=== PATIENT | female | born 1960 | race Caucasian/White ===

== ENCOUNTER 2020-04-11 15:31 | Outpatient (CLI) | payer MEDICARE, SELFPAY ==
--- NOTE | ~2020-04-11 | XR_ITS ---
EXAMINATION: XR hip LT 2V w AP pelvis DATE: 04/11/2020 16:08 INDICATION: Left hip and groin pain. TECHNIQUE: Anteroposterior view of the pelvis and anteroposterior, frog leg and cross-table lateral v iews of the left hip were obtained. COMPARISON: 05/16/2019 FINDINGS: Alignment is normal. No fracture. Slight progression in advanced left hip osteoarthritis with essenti ally [id number] apposition and early remodeling of the left femoral head and acetabulum with promin ent subarticular sclerosis and cystic change. Unchanged mild to moderate right hip osteoarthritis. Mi ld lumbar spondylosis. IMPRESSION: 1. Slight progression in advanced left hip osteoarthritis. 2. Unchanged mild to moderate right hip osteoarthritis. Reviewed, dictated and finalized at location A.
== END 2020-04-11 15:32 | disposition home or self-care (01) ==
PROVIDERS: PCP Family Medicine; Visit Provider Family Medicine
DX: M16.0 Bilateral primary osteoarthritis of hip (principal)
CPT/HCPCS: 73502

== ENCOUNTER 2021-02-01 10:07 | Outpatient (CLI) | payer MEDICARE, SELFPAY ==
--- NOTE | ~2021-02-01 | CT_ITS ---
EXAMINATION: CT hip LT wo con DATE: 02/01/2021 10:24 INDICATION: Left hip pain and inability to fully straighten the left leg TECHNIQUE: High resolution computed tomography (CT) of the left hip was performed without intravenous contrast. Additional sagittal and coronal reconstructions were performed. Automated exposure control and iterative reconstruction technique were employed. The dose-length product was 198.09 mGy-cm. COMPARISON: Left hip radiographs dated 01/24/2021, 04/11/2020 and 05/16/2019 FINDINGS: Advanced osteoarthritis at the left hip with remodeling and mild loss of bone stock along cephalad as pect of the femoral head and at the superior acetabulum. This results in mild cephalad migration of t he left femur. There is prominent subarticular sclerosis and cystic change about the left acetabulum with thin hypertrophic marginal osteophytes along the acetabulum and thicker marginal osteophytes judith ng the inferomedial aspect of the femoral head. No fracture. No significant left hip joint effusion. Moderate osteoarthritis at the left sacroiliac joint. IMPRESSION: 1. Advanced osteoarthritis at the left hip with no joint effusion or acute osseous abnormality. Reviewed, dictated and finalized at location B. IMPRESSION: 1. Advanced osteoarthritis at the left hip with no joint effusion or acute osse ous abnormality.
== END 2021-02-01 10:08 ==
PROVIDERS: PCP Family Medicine; Visit Provider Orthopaedic Surgery
DX: M16.12 Unilateral primary osteoarthritis, left hip (principal)
CPT/HCPCS: 73700

== ENCOUNTER 2021-04-29 12:24 | Emergency (ER) | payer MEDICARE, SELFPAY ==
[2021-04-29 12:35] VITALS: BP 184/88; PULSE 92; RESP 18; TEMP 35.9; O2SAT 97
--- NOTE | 2021-04-29 13:17 | ED.SKABFB ---
HPI - Skin/Abscess/Foreign Bdy General Chief complaint: Skin/Abscess/Foreign Body Stated complaint: rash/body aches Source: patient and RN notes reviewed Limitations: no limitations History of Present Illness HPI narrative: The Covid unvaccinated obese patient-- a a non-smoker/nondrinker on several med inc for AODM-- presents with abdominal aches and rash. Patient states she has a couple day history of epigastric pain associated with chills, nausea, rash and definite loose stools. She reports she has been on Bactrim for a diabetic foot ulcer [pending hip surgery] , and that small toe ulceration is no better. No fever measured, actual vomiting, frequency/dysuria/urgency; she reports a total hysterectomy in the past. Her epigastric discomfort makes her double over and brings tears to her eyes. Her rash is pink, slightly raised itchy and diffuse on trunk and extremities.. Advised to go to higher-level care facility to higher level testing , because for early diagnosis of serious problems [cholecystitis, atypical appendicitis, etc], clear specific symptoms do not develop until later. Related Data Home Medications Medication Instructions Recorded Confirmed cholecalciferol (vitamin D3) 125 unit PO 10/07/19 04/22/21 mcg (5,000 unit) disintegrating tablet dorzolamide 2 % eye drops 1 drop EACH EYE TID 10/07/19 04/22/21 multivit with min-folic 1 tablet PO DAILY 05/30/20 04/22/21 acid-lutein 400 mcg-250 mcg chewable tablet Allergies Allergy/AdvReac Type Severity Reaction Status Date / Time aspirin Allergy Unknown Unknown Verified 04/29/21 17:42 nickel Allergy Unknown Unknown Verified 04/29/21 17:42 Penicillins Allergy Unknown unknonw Verified 04/29/21 17:42 ranitidine Allergy Unknown unknown Verified 04/29/21 17:42 Review of Systems Review of Systems: Narrative: General/Constitutional: No weight loss,fever Eyes: N0: Redness,discharge Ears/Nose/Throat: No: Epistaxis,ear discharge Respiratory: Denies: Hemoptysis Gastrointestinal: No Vomiting, Bleeding-rectal Skin: No Lumps, REPORTS eruption Neurologic: No Focal Weakness,Sz Hematologic: Denies: Petechiae/Purpura Psychiatric: No: Suicida ideationl All Other Systems: Reviewed and Negative [facility] Past Medical History Medical History Depressive disorder, not elsewhere classified (~2008) Diabetic foot ulcer Dietary counseling and surveillance (~2008) Encounter for medication management (~2008) Fibromyalgia syndrome (~2008) Generalized osteoarthritis of multiple sites History of anesthesia problem History of sleep apnea Left hip pain Left knee pain Neuropathic pain of both feet (~2014) Osteoarthritis involving multiple joints on both sides of body (~2017) Osteopenia after menopause (~10/2018) 11/08/2018: DEXA scan showed normal hip and lumbar BMD compared to 07/11/2013 from [facility]: Dr. 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 (~2012) Type 2 diabetes mellitus with diabetic polyneuropathy (~2012) Vitamin D deficiency, unspecified Weight gain Surgical History Surgical History History of genital warts 1983 - s/p Excision History of hysterectomy 2004 S/P hysterectomy with oophorectomy (~1988) Family History Family History Father Family history of kidney disease Mother Family history of kidney disease Other Asthma Depression Diabetes mellitus Family history of Alzheimer's disease Family history of alcoholism Family history of arthritis Family history of atrial fibrillation Family history of chronic obstructive pulmonary disease Family history of congestive h
== END 2021-04-29 13:55 | disposition home or self-care (01) ==
PROVIDERS: Emergency Provider Emergency Medicine
DX: R10.13 Epigastric pain (principal); R21 Rash and other nonspecific skin eruption; E11.621 Type 2 diabetes mellitus with foot ulcer; Z87.891 Personal history of nicotine dependence; G47.30 Sleep apnea, unspecified; M79.7 Fibromyalgia; M19.90 Unspecified osteoarthritis, unspecified site; M81.0 Age-related osteoporosis without current pathological fracture; M06.9 Rheumatoid arthritis, unspecified; E11.42 Type 2 diabetes mellitus with diabetic polyneuropathy
CPT/HCPCS: 99213; A9270; G0463

== ENCOUNTER 2021-04-29 14:30 | Emergency (ER) | payer MEDICARE, SELFPAY ==
--- NOTE | ~2021-04-29 | CT_ITS ---
EXAMINATION: CT abdomen pelvis w con EXAM DATE: 04/29/2021 18:51 INDICATION: Abdominal pain. TECHNIQUE: Spiral CT of the abdomen and pelvis was performed following intravenous injection of 100 m L Omnipaque 350. Axial, coronal and sagittal images of the abdomen and pelvis were reviewed. The do se-length product (DLP) for this examination was 1140.46 mGy-cm. The exposure was tailored according to patient size (auto mA exposure control), and iterative reconstruction (ASIR) was used as addition al dose reduction technique. Comparison is made to prior examination from 08/15/2010. FINDINGS: There is hepatic steatosis without suspicious focal lesion identified. Spleen, adrenal glan ds, pancreas are unremarkable. The gallbladder is distended but otherwise unremarkable. There is no biliary duct dilation. 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 The uterus is not identified and wolfe s likely been surgically resected. The bladder is unremarkable. There is no retroperitoneal or pelv ic lymphadenopathy. There is mild to moderate scattered arteriosclerotic disease. The appendix is not positively visualized. There is no pericecal inflammatory change to suggest appe ndicitis. There is small sliding gastroesophageal hiatal hernia. There is expected amount of colon ic stool. No free intraperitoneal gas. The heart is normal in size. There are no pericardial or pleural effusions. Linear lingular and right middle lobe subsegmental atelectasis. There are no ost eoblastic or osteolytic lesions identified. There is moderate to severe left hip, moderate right hip primary osteoarthritis. IMPRESSION: 1. No acute intra-abdominal findings. 2. 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 3. Hepatic steatosis. 4. Small hiatal hernia. Reviewed, dictated and finalized at location A.
[2021-04-29 15:42] VITALS: BP 187/89; PULSE 72; RESP 18; TEMP 36.6; O2SAT 100
[2021-04-29 16:09] LABS: Basophils Percent Auto 0.3 % (0.2-1.2); Eosinophils Absolute Auto 0.6 K/mm3 (0-0.3); Eosinophils Percent Auto 9.4 % (0-4.4); Hematocrit 37.4 % (37.0-47.0); Hemoglobin 12.7 g/dL (12.0-15.0); Immature Granulocyte Absolute 0.02 K/mm3 (0.00-0.031); Immature Granulocyte Percent A 0.3 % (0-0.5); Immature Platelet Fraction Pct 7.2 % (0.9-11.2); Lymphocytes Absolute Auto 1.22 K/mm3 (0.9-3.2); Lymphocytes Percent Auto 19.2 % (18.3-44.2); Mean Corpuscular Hemoglobin 29.2 pg (26-34); Monocytes Absolute Auto 0.7 K/mm3 (0.1-0.6); Monocytes Percent Auto 10.8 % (2.6-8.5); Neutrophils Absolute Auto 3.8 K/mm3 (1.3-6.7); Platelet Count Result 141 k/mm3 (150-375); Red Blood Count 4.35 M/mm3 (4.2-5.4); Red Cell Distribution Width 12.6 % (11.5-14.5); White Blood Count 6.4 K/mm3 (4.5-10.0)
--- NOTE | 2021-04-29 16:20 | PC.NURSE ---
hysterectomy. did not perform urine preg test
[2021-04-29 16:31] LABS: Alanine Aminotransferase 42 U/L (4-35); Albumin Level 4.6 g/dL (3.5-5.1); Alkaline Phosphatase 123 U/L (38-126); Anion Gap 10 mmol/L (8-16); Aspartate Amino Transferase 40 U/L (14-36); Bilirubin,Total 0.7 mg/dL (0.2-1.3); Blood Urea Nitrogen 18 mg/dL (7-17); Calcium 10.3 mg/dL (8.4-10.2); Carbon Dioxide 23 mmol/L (22-30); Chloride 104 mmol/L (98-107); Estimated CRCL calculation 71 ml/min; Estimated Glomerular Filt Rate 57; Glucose 174 mg/dL (65-105); Lipase 181 U/L (23-300); Potassium 4.7 mmol/L (3.4-5.0); Sodium 137 mmol/L (137-145)
[2021-04-29 16:45] LABS: Add Urine Microscopic? YES; Appearance Urine Clear (Clear); Bilirubin Urine Negative (Negative); Blood Urine Negative (Negative); Color Urine Yellow (Yellow); Glucose Urine UA Negative (Negative); Ketones Urine Negative (Negative); Leukocyte Esterase Ur Trace LEU/UL (Negative); Mucus Urine Rare /lpf; Nitrate Urine Negative (Negative); Protein Urine Negative (Negative); RBC Urine 0-2 /hpf (0-2); Specific Grav Ur 1.014 (1.001-1.035); Squamous Epithelial Cell Urine Occasional /hpf (Few); Urobilinogen Urine Negative mg/dL (<2.0); WBC Urine 0-3 /hpf
--- NOTE | 2021-04-29 17:25 | PC.NURSE ---
Patient reports that she was seen at [facility] and given nausea medication before being sent to the ED. She reports that pain began yesterday and that she was doing a lot of walking and quite a bit of lifting dealing with groceries. In addition to the abdominal pain and nausea she reports generalized body aches beginning this AM. No other concerns are reported at this time.
[2021-04-29 17:27] VITALS: BP 200/89; PULSE 73; RESP 15; TEMP 36.8; O2SAT 100
--- NOTE | 2021-04-29 17:44 | PC.NURSE ---
While obtaining patient history she reports having a generalized itching rash that is present globally but worse on her back. She believes this may be poison lora related. She reports that her grandson had poison lora on thursday and is concerned that she may have contracted this rash from him. Patient also has a wound noted to her right 5th toe for which she is being treated. She does have a small diffuse red rash noted on exam. She does
[2021-04-29] MEDS: SODIUM CHLORIDE 0.9% IV 1,000 ML 999 ML IV CONT (19:58)
[2021-04-29 20:16] VITALS: BP 169/112; PULSE 79; RESP 18; O2SAT 100
[2021-04-29] MEDS: MORPHINE SULFATE (*CRX) 4 MG/ML INJ IV PUSH (20:47)
[2021-04-29] MEDS: ONDANSETRON INJ 4 MG/2 ML VIAL IV PUSH (20:48)
--- NOTE | 2021-04-29 20:54 | ED.ABDPAIN ---
HPI - Abdominal Pain General Chief Complaint: Abdominal Pain Stated Complaint: Abd Pain Time Seen by Provider: 04/29/21 18:04 Source: patient, EMS and RN notes reviewed Limitations: no limitations History of Present Illness HPI narrative: Patient is 60 years old white female presented to the ED with mid abdominal pain started yesterday, constant, worse with activity, nothing make it better. Patient denies any fever, chills, nausea, vomiting, diarrhea, constipation, urinary symptoms. History of hysterectomy. Patient does not smoke, drink occasionally uses marijuana almost daily. History of diabetes, disability because of fibromyalgia rheumatoid arthritis and osteoarthritis. Patient has been fully vaccinated for COVID-19 Related Data Home Medications Medication Instructions Recorded Confirmed cholecalciferol (vitamin D3) 125 unit PO 10/07/19 04/22/21 mcg (5,000 unit) disintegrating tablet dorzolamide 2 % eye drops 1 drop EACH EYE TID 10/07/19 04/22/21 multivit with min-folic 1 tablet PO DAILY 05/30/20 04/22/21 acid-lutein 400 mcg-250 mcg chewable tablet Allergies Allergy/AdvReac Type Severity Reaction Status Date / Time aspirin Allergy Unknown Unknown Verified 04/29/21 17:42 nickel Allergy Unknown Unknown Verified 04/29/21 17:42 Penicillins Allergy Unknown unknonw Verified 04/29/21 17:42 ranitidine Allergy Unknown unknown Verified 04/29/21 17:42 Review of Systems Review of Systems: Narrative: CONSTITUTIONAL: Denies fever, chills, or sweats. EYES: Denies visual changes, redness, or discharge. ENT: Denies rhinorrhea, congestion, sore throat, or otalgia. CARDIOVASCULAR: Denies chest pain, palpitations, or edema. RESPIRATORY: Denies cough or dyspnea. GASTROINTESTINAL: Mild abdominal pain GENITOURINARY: Denies dysuria or hematuria. SKIN: Denies rash or itching. MUSCULOSKELETAL: Denies back pain, joint pain, or myalgia. NEUROLOGIC: Denies headache, numbness, or weakness. PSYCHIATRIC: Denies anxiety or depression. [facility] Past Medical History Medical History Depressive disorder, not elsewhere classified (~2008) Diabetic foot ulcer Dietary counseling and surveillance (~2008) Encounter for medication management (~2008) Fibromyalgia syndrome (~2008) Generalized osteoarthritis of multiple sites History of anesthesia problem History of sleep apnea Left hip pain Left knee pain Neuropathic pain of both feet (~2014) Osteoarthritis involving multiple joints on both sides of body (~2017) Osteopenia after menopause (~10/2018) 11/08/2018: DEXA scan showed normal hip and lumbar BMD compared to 07/11/2013 from [facility]: Dr. 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 (~2012) Type 2 diabetes mellitus with diabetic polyneuropathy (~2012) Vitamin D deficiency, unspecified Weight gain Surgical History Surgical History History of genital warts 1983 - s/p Excision History of hysterectomy 2004 S/P hysterectomy with oophorectomy (~1988) Family History Family History Father Family history of kidney disease Mother Family history of kidney disease Other Asthma Depression Diabetes mellitus Family history of Alzheimer's disease Family history of alcoholism Family history of arthritis Family history of atrial fibrillation Family history of chronic obstructive pulmonary disease Family history of congestive heart failure Family history of elevated blood lipids Family history of glaucoma Family history of liver disease Family history of lung disease Family history of mental disorder Family history of osteoporosis Family history
[2021-04-29 21:34] VITALS: BP 196/90; PULSE 88; RESP 18; TEMP 36.7; O2SAT 100
== END 2021-04-29 21:35 | disposition home or self-care (01) ==
PROVIDERS: Emergency Medicine; Emergency Provider Emergency Medicine
DX: R10.33 Periumbilical pain (principal); Z87.891 Personal history of nicotine dependence
CPT/HCPCS: 36415; 74177; 80053; 81001; 83690; 85025; 85055; 96361; 96374; 96375; 99284; A9270; J2270; J2405; J7030; Q9967

== ENCOUNTER 2021-05-17 13:50 | Outpatient (CLI) | payer MEDICARE, SELFPAY ==
--- NOTE | ~2021-05-17 | US_ITS ---
EXAMINATION: US art doppler w jamal BEST EXAM DATE: 05/17/2021 14:48 INDICATION: Stricture of artery, stent. TECHNIQUE: Segmental pressures and plethysmographic and Doppler waveforms of the brachial and lower e xtremity arteries were obtained. There is no prior study for comparison. FINDINGS: Right and left brachial artery pressures of 161 mm Hg and 156 mm Hg, respectively, are concordant (no rmal difference <= 30 mmHg). The right and left thigh-brachial pressure indices are 1.15, 0.93, resp ectively (normal > 1.2). RIGHT LEG: The ankle-brachial index (RHONDA) is 0.81 (normal >= 0.9-1). The great toe-brachial index (TBI) is 0.75 (normal >= 0.65). The lower extremity ratios, segmental pressure gradients as follows; Proximal superficial femoral artery:- 1.15 (185 mmHg). Distal superficial femoral artery: ----- 1.09 (175 mmHg). Popliteal: 1.00 (161 mmHg). Dorsalis pedis: 0.74 (119 mmHg). Posterior tibial: 0.81 (130 mmHg). (Normal gradients <= 20-30 mmHg between adjacent levels on the same leg or the same levels on the two legs). Arterial waveforms are monophasic. LEFT LEG: The ankle-brachial index (RHONDA) is 0.83 (normal >= 0.9-1). The great toe-brachial index (TBI) is 0.55 (normal >= 0.65). The lower extremity ratios, segmental pressure gradients as follows; Proximal superficial femoral artery:- 0.93 (150 mmHg). Distal superficial femoral artery: ----- 1.11 (178 mmHg). Popliteal: 0.88 (141 mmHg). Dorsalis pedis: 0.83 (133 mmHg). Posterior tibial: 0.78 (125 mmHg). (Normal gradients <= 20-30 mmHg between adjacent levels on the same leg or the same levels on the two legs). Arterial waveforms are monophasic. IMPRESSION: 1. Right ankle-brachial index 0.81, mildly decreased. 2. Left ankle-brachial index 0.83, mildly decreased. 3. Segmental pressures as above. Reviewed, dictated and finalized at location A.
== END 2021-05-17 13:51 | disposition home or self-care (01) ==
LOC: ANHIMG 13:53
PROVIDERS: PCP Nurse Practitioner Family; Visit Provider Nurse Practitioner Family
DX: I77.1 Stricture of artery (principal)
CPT/HCPCS: 93923

== ENCOUNTER 2021-05-30 16:06 | Outpatient (CLI) | payer MEDICARE, SELFPAY ==
[2021-05-30 17:37] LABS: Hemoglobin A1C 8.1 % (<5.7)
[2021-06-02 22:31] LABS: NIL 0.02 IU/mL; Quantiferon TB Plus, 1T NEGATIVE (NEGATIVE); TB1-NIL <0.00 IU/mL
== END 2021-05-30 16:07 | disposition home or self-care (01) ==
PROVIDERS: PCP Nurse Practitioner Family; Visit Provider Internal Medicine
DX: M05.79 Rheumatoid arthritis with rheumatoid factor of multiple sites without organ or systems involvement (principal); E11.42 Type 2 diabetes mellitus with diabetic polyneuropathy
CPT/HCPCS: 36415; 83036; 86480

== ENCOUNTER 2021-07-17 16:31 | Outpatient (CLI) | payer MEDICARE, SELFPAY ==
[2021-07-17 17:09] LABS: Alanine Aminotransferase 25 U/L (4-35); Albumin Level 4.5 g/dL (3.5-5.1); Alkaline Phosphatase 80 U/L (38-126); Anion Gap 10 mmol/L (8-16); Aspartate Amino Transferase 35 U/L (14-36); Bilirubin,Total 0.6 mg/dL (0.2-1.3); Blood Urea Nitrogen 16 mg/dL (7-17); Calcium 9.8 mg/dL (8.4-10.2); Carbon Dioxide 29 mmol/L (22-30); Chloride 107 mmol/L (98-107); Estimated Glomerular Filt Rate 51; Glucose 90 mg/dL (65-110); Potassium 4.5 mmol/L (3.4-5.0); Sodium 146 mmol/L (137-145)
== END 2021-07-17 16:32 | disposition home or self-care (01) ==
LOC: ANHLAB 16:33
PROVIDERS: PCP Family Medicine; Visit Provider Family Medicine
DX: N17.9 Acute kidney failure, unspecified (principal); E11.42 Type 2 diabetes mellitus with diabetic polyneuropathy; I10 Essential (primary) hypertension
CPT/HCPCS: 36415; 80053

== ENCOUNTER 2021-11-06 12:04 | Outpatient (CLI) | payer MEDICARE, SELFPAY ==
[2021-11-06 12:02] LABS: Hematocrit 39.5 % (37.0-47.0); Mean Corpuscular HGB Conc 32.9 g/dl (32-36); Mean Corpuscular Hemoglobin 30.2 pg (26-34); Mean Corpuscular Volume 91.6 fl (80-100); Mean Platelet Volume 11.1 fl (7.4-10.4); Platelet Count Result 145 k/mm3 (150-375); Red Blood Count 4.31 M/mm3 (4.2-5.4); Red Cell Distribution Width 12.4 % (11.5-14.5); White Blood Count 5.4 K/mm3 (4.5-10.0)
[2021-11-06 12:17] LABS: Alanine Aminotransferase 21 U/L (4-35); Albumin Level 4.6 g/dL (3.5-5.1); Alkaline Phosphatase 85 U/L (38-126); Anion Gap 9 mmol/L (8-16); Aspartate Amino Transferase 30 U/L (14-36); Bilirubin,Total 0.4 mg/dL (0.2-1.3); Blood Urea Nitrogen 24 mg/dL (7-17); CRP < 0.5 mg/dL (<1.0); Calcium 9.6 mg/dL (8.4-10.2); Carbon Dioxide 30 mmol/L (22-30); Chloride 101 mmol/L (98-107); Estimated Glomerular Filt Rate 46; Glucose 105 mg/dL (65-110); Potassium 4.5 mmol/L (3.4-5.0); Sodium 140 mmol/L (137-145)
[2021-11-06 12:26] LABS: Add Urine Microscopic? YES; Appearance Urine Cloudy (Clear); Bacteria Urine Trace /hpf; Bilirubin Urine Negative (Negative); Blood Urine 2+ (Negative); Color Urine Amber (Yellow); Glucose Urine UA Negative (Negative); Ketones Urine Negative (Negative); Leukocyte Esterase Ur 3+ LEU/UL (Negative); Mucus Urine Rare /lpf; Nitrate Urine Negative (Negative); Protein Urine 2+ mg/dL (Negative); RBC Urine >75 /hpf (0-2); Specific Grav Ur 1.024 (1.001-1.035); Squamous Epithelial Cell Urine Many /hpf (Few); Urobilinogen Urine Negative mg/dL (<2.0); WBC Urine >75 /hpf
[2021-11-06 12:53] LABS: Erythrocyte Sedimentation Rate 21 mm/hr (0-20)
== END 2021-11-06 12:05 | disposition home or self-care (01) ==
PROVIDERS: PCP Family Medicine; Visit Provider Internal Medicine
DX: M19.90 Unspecified osteoarthritis, unspecified site (principal); M05.79 Rheumatoid arthritis with rheumatoid factor of multiple sites without organ or systems involvement; Z51.81 Encounter for therapeutic drug level monitoring; Z79.899 Other long term (current) drug therapy
CPT/HCPCS: 36415; 80053; 81001; 85027; 85652; 86140; 87086; 87088

== ENCOUNTER 2022-01-22 14:41 | Outpatient (CLI) | payer MEDICARE, SELFPAY ==
--- NOTE | ~2022-01-22 | CT_ITS ---
EXAMINATION:CT lung screening DATE: 01/22/2022 15:08 INDICATION: Tobacco use. Smoker who quit 11 years ago with 80 pack year history. TECHNIQUE: Computed tomography (CT) of the chest was performed without intravenous contrast. Automate d exposure control and iterative reconstruction technique were employed. The dose-length product (DLP ) was 151.80 mGy-cm. COMPARISON: CT abdomen and pelvis 04/29/2021 FINDINGS: There is mild emphysema. There is mild atelectasis and scarring in right middle lobe and li ngula. A calcified right lung nodule and calcified right hilar lymph nodes are consistent with old gr anulomatous disease. There is a stable 3 mm nodule in left lower lobe. No pleural effusion. The heart size is normal. There are coronary artery calcifications. No pericardial effusion. There is mild tho racic spondylosis and severe lumbar spondylosis. There is mild chronic anterior wedging of T11 and T1 2 vertebral bodies. IMPRESSION: 1. Lung-RADS category 2: Benign appearance or behavior. Continue annual screening with noncontrast lo w-dose chest CT in 12 months. Reviewed, dictated and finalized at location A. IMPRESSION: 1. Lung-RADS category 2: Benign appearance or behavior. Continue annual screeni ng with noncontrast low-dose chest CT in 12 months.
== END 2022-01-22 14:42 | disposition home or self-care (01) ==
LOC: ANHIMG 14:51
PROVIDERS: PCP Family Medicine; Visit Provider Family Medicine
DX: Z12.2 Encounter for screening for malignant neoplasm of respiratory organs (principal); Z87.891 Personal history of nicotine dependence
CPT/HCPCS: 71271

== ENCOUNTER 2022-03-01 09:39 | Emergency (ER) | payer MEDICARE, SELFPAY ==
--- NOTE | ~2022-03-01 | CT_ITS ---
EXAMINATION: CT brain wo con INDICATION: Head injury COMPARISON: None TECHNIQUE: Standard unenhanced head CT. The dose-length product (DLP) was 605.33 mGy-cm. The mA was a djusted according to patient size. Iterative reconstruction technique was employed. FINDINGS: There is a posterior scalp laceration. There is no intracranial hemorrhage, acute infarctio n, or abnormal mass lesion. The ventricles are normal. There is no abnormal mass effect or midline sh ift. The paz-white matter differentiation is normal. The basal cisterns are patent. The orbits are n ormal. There are small fluid levels in the maxillary sinuses IMPRESSION: 1. No acute intracranial abnormality. Reviewed, dictated and finalized at location A.
--- NOTE | ~2022-03-01 | CT_ITS ---
EXAMINATION: CT facial & cervical spine wo DATE: 03/01/2022 12:06 INDICATION: Facial and neck pain, head injury TECHNIQUE: Computed tomography (CT) of the maxillofacial region and cervical spine was performed with out intravenous contrast. The dose-length product (DLP) was 471.50 mGy-cm. Automated exposure control and iterative reconstruction technique were employed. COMPARISON: None FINDINGS: MAXILLOFACIAL CT: No facial fracture is identified. There are small fluid levels in the maxillary sinuses. The paranasa l sinuses are otherwise clear. The patient is edentulous. CERVICAL SPINE CT: There is no fracture, dislocation, or subluxation. There is severe loss of intervertebral disc space height at C4-5, C5-6, and C6-7. The odontoid is intact. Small degenerative osteophytes project from t he anterior endplates of multiple vertebral bodies. The vertebral body heights are normal. There is m oderate multilevel facet and uncovertebral joint osteoarthritis. There are calcifications of the post erior longitudinal ligament at C4. IMPRESSION: 1. Small fluid levels in the maxillary sinuses without facial fracture. 2. Severe cervical spondylosis without acute findings. Reviewed, dictated and finalized at location A.
[2022-03-01 09:49] VITALS: BP 188/104; PULSE 91; RESP 21; TEMP 36.7; O2SAT 99
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
[2022-03-01] MEDS: ACETAMINOPHEN 500 MG TABLET 1000 MG PO (12:34)
[2022-03-01] MEDS: KETOROLAC (*BKC) 60 MG/2 ML VIAL IM (12:34)
[2022-03-01 12:37] VITALS: BP 144/108; PULSE 84; RESP 18; O2SAT 97
[2022-03-01 14:06] VITALS: BP 145/74; PULSE 66; RESP 18; O2SAT 99
== END 2022-03-01 14:07 | disposition home or self-care (01) ==
PROVIDERS: Emergency Provider Emergency Medicine; PCP Family Medicine
DX: S01.01XA Laceration without foreign body of scalp, initial encounter (principal); S09.93XA Unspecified injury of face, initial encounter; I77.1 Stricture of artery; M79.7 Fibromyalgia; M19.90 Unspecified osteoarthritis, unspecified site; G47.30 Sleep apnea, unspecified; M85.80 Other specified disorders of bone density and structure, unspecified site; E11.51 Type 2 diabetes mellitus with diabetic peripheral angiopathy without gangrene; E11.42 Type 2 diabetes mellitus with diabetic polyneuropathy; E55.9 Vitamin D deficiency, unspecified; M47.812 Spondylosis without myelopathy or radiculopathy, cervical region; Z87.891 Personal history of nicotine dependence; Y08.02XA Assault by strike by baseball bat, initial encounter; X99.8XXA Assault by other sharp object, initial encounter; Z79.899 Other long term (current) drug therapy
CPT/HCPCS: 12001; 70450; 70486; 72125; 96372; 99284; A9270; J1885

== ENCOUNTER 2022-11-12 19:35 | Inpatient (IN) | payer MEDICARE, SELFPAY ==
[2022-11-12] VITALS (7 sets, daily range): BP systolic 145–181; BP diastolic 64–79; PULSE 88–145; RESP 24–30; TEMP 36.3; O2SAT 88–94
--- NOTE | ~2022-11-12 | XR_ITS ---
Portable chest x-ray Comparison: 11/16/2022 Clinical History: Shortness of breath Findings: Right-sided PICC line remains in place. Extensive right upper lobe consolidation is again present. There is more patchy involvement in the right lower lobe, and possible minimal involvement o f the left lower lobe. Cardiomediastinal silhouette is stable. Bones and soft tissues are unremarkab le. Impression: Stable extensive right upper lobe consolidation, compatible with pneumonia. Minimal patchy airspace disease left lung base and right lower lobe, similar to prior exam. Stable right-sided PICC line. Reviewed, dictated and finalized at location M. MFITTER Impression: Stable extensive right upper lobe consolidation, compatible with pneumonia. Minimal patchy airspace disease left lung base and right lower lobe, similar to prior exam. Stable right-sided PICC line.
--- NOTE | ~2022-11-12 | XR_ITS ---
EXAMINATION: XR chest PICC line DATE: 11/16/2022 10:33 INDICATION: Central line placement. TECHNIQUE: A single frontal view of the chest was obtained. COMPARISON: Chest single view 11/15/2022 FINDINGS: There are airspace opacities in all lung zones bilaterally, worst in right mid and upper devon ng zones. No pleural effusion or pneumothorax. The heart size is normal. A right upper extremity carlos pherally inserted central venous catheter (PICC) is seen with tip in the superior vena cava. IMPRESSION: 1. PICC tip in superior vena cava. 2. Bilateral pneumonia, right worse than left with slight worsening. Reviewed, dictated and finalized at location A. DEVELOPER
--- NOTE | ~2022-11-12 | XR_ITS ---
EXAMINATION: XR chest 1V portable DATE: 11/15/2022 07:22 INDICATION: Pneumonia. TECHNIQUE: A single frontal view of the chest was obtained. COMPARISON: Chest single view 11/12/2022, chest CT 11/13/2022 FINDINGS: There are airspace opacities in all lung zones bilaterally, worst in right mid and upper devon ng zones. No pleural effusion or pneumothorax. The heart size is normal. IMPRESSION: 1. Stable bilateral pneumonia, right worse than left. Reviewed, dictated and finalized at location A. DER HAND
--- NOTE | ~2022-11-12 | US_ITS ---
EXAMINATION: US art doppler w press LE BI DATE: 11/21/2022 15:42 INDICATION: Peripheral vascular disease with leads TECHNIQUE: Segmental pressures and plethysmographic and Doppler waveforms of the brachial and lower e xtremity arteries were obtained. COMPARISON: None. FINDINGS: Right and left brachial artery pressures of 159 mm Hg and 176 mm Hg, respectively, are concordant (no rmal difference <= 30 mmHg). The right ankle-brachial index (RHONDA) is 0.90 (normal >= 0.9-1). The right great toe-brachial index (T BI) is 0.22 (normal >= 0.6-0.8). Arterial waveforms are triphasic at the right common femoral and lik reynaldo also the superficial femoral and popliteal arteries and biphasic in the right posterior tibial an d dorsalis pedis arteries with brisk systolic upstrokes throughout. The left RHONDA is 0.88. The left TBI is 0.09. Arterial waveforms are triphasic at the left common femor al and popliteal arteries, biphasic in the left posterior tibial and dorsalis pedis arteries, each wi th brisk systolic upstrokes. There is insufficient signal to the waveforms relative to the noise for assessment of the waveforms in the left superficial femoral artery. IMPRESSION: 1. Arterial occlusive disease to the bilateral lower limbs with mildly decreased bilateral ABIs and m oderate decreased right and severely decreased left TBIs. Reviewed, dictated and finalized at location B. F COUNSELOR IMPRESSION: 1. Arterial occlusive disease to the bilateral lower limbs with mildly decrease d bilateral ABIs and moderate decreased right and severely decreased left TBIs.
--- NOTE | ~2022-11-12 | CT_ITS ---
EXAMINATION: CT brain wo con DATE: 11/15/2022 13:30 INDICATION: Altered mental status. TECHNIQUE: Computed tomography (CT) of the head was performed without intravenous contrast. The mA wa s adjusted according to patient size. Iterative reconstruction technique was employed. The dose-lengt h product was 1210.67 mGy-cm. COMPARISON: Head CT 03/01/2022 FINDINGS: There is no intracranial hemorrhage, acute infarction, or abnormal intracranial mass lesion . The ventricles are normal in size. There is mild mucosal thickening in the paranasal sinuses. The o rbits are normal. The mastoid air cells are normal. IMPRESSION: 1. Normal brain. Reviewed, dictated and finalized at location A. GAGE CONSULTANT IMPRESSION: 1. Normal brain.
--- NOTE | ~2022-11-12 | MR_ITS ---
EXAMINATION: MR brain/brain stem wo con DATE: 11/21/2022 18:09 INDICATION: Asymmetric pupils TECHNIQUE: Magnetic resonance imaging (MRI) of the brain and brainstem was performed without intraven ous contrast. Sequences included sagittal and axial T1-weighted SE, axial diffusion-weighted FS SE, a xial T2*-weighted GRE, axial T2-weighted FLAIR Propeller, and axial T2-weighted Propeller. Apparent d iffusion coefficient (ADC) maps were created. COMPARISON: MRI dated 11/17/[address] dated 11/15/2022. FINDINGS: Brain parenchymal volume is normal for age. No evidence for acute infarction, hemorrhage or mass. Structures of the posterior fossa including 7/8th cranial nerve complexes are normal. No ventr iculomegaly or midline shift. Paranasal sinuses are unremarkable. Orbits are symmetric without discon jugate gaze. Midline sagittal images are unremarkable. IMPRESSION: 1. No acute intracranial abnormality. Reviewed, dictated and finalized at location A. EL ENDSHAKER ADJUSTER
--- NOTE | ~2022-11-12 | CT_ITS ---
EXAMINATION: CT abdomen pelvis w con DATE: 11/12/2022 20:53 INDICATION: Abdominal pain. Nausea. TECHNIQUE: Computed tomography (CT) of the abdomen and pelvis was performed with 100 mL Omnipaque 350 intravenous contrast. Automated exposure control and iterative reconstruction technique were employe d. The dose-length product was 812.60 mGy-cm. COMPARISON: CT abdomen and pelvis 04/29/2021 FINDINGS: The visualized portions of the lung bases demonstrate confluent airspace and groundglass op acities with air bronchograms in right upper lobe and right lower lobe. There are widespread tree-in- bud opacities and patchy airspace and groundglass opacities in the upper lobes, lower lobes, and righ t middle lobe. Calcified right lung nodules and calcified right hilar and mediastinal lymph nodes are consistent with old granulomatous disease. No pleural effusion. The heart size is normal. There are coronary artery calcifications. No pericardial effusion. There is wall thickening of the distal esoph kalin, likely esophagitis. There is a 9 mm cyst in the liver. The gallbladder, spleen, pancreas, adren al glands, and kidneys are normal. 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 There are no dilated loops of bowel. The appendix is normal. There are no pathologically enlarge d lymph nodes. There is no free intraperitoneal fluid. There is severe osteoarthritis of the hips. Th ere is severe lumbar spondylosis and moderate thoracic spondylosis. There is mild chronic anterior we dging of multiple vertebral bodies. IMPRESSION: 1. Extensive pneumonia, right worse than left. 2. Wall thickening of the distal esophagus, likely esophagitis. Reviewed, dictated and finalized at location A. RESS TECHNICIAN
--- NOTE | ~2022-11-12 | CT_ITS ---
Clinical Indication: Respiratory failure CT Scan of the Chest with Contrast: Technique: Contiguous sections were acquired throughout the chest after intravenous administration of 100 cc of Omnipaque 350. Dose reduction technique was used on this scan by utilizing automated expos ure control and iterative reconstruction technique. The dose-length product (DLP) was 703.22 mGy-cm. COMPARISON: 01/22/2022 Findings: There is probable mild lymphadenopathy along the right paratracheal stripe, and subcarinal region, in the pretracheal region.. There is no filling defect in the pulmonary arterial tree to suggest pulmon gina embolus. There is no evidence of aortic dissection or aneurysm. There is no evidence of pleural or pericardial effusion. There is extensive, dense consolidation throughout the right lung, sparing the inferior right lower l obe and portion of the right middle lobe. There scattered patchy focal areas of consolidation in the left lung. Probable lingular atelectasis. Images through the upper abdomen reveal no abnormalities. Impression: Extensive, dense consolidation in the right lung, with scattered focal areas of consolidation left devon ng. Findings are compatible with extensive pneumonia. Underlying neoplastic lesion is difficult to co mpletely exclude, though no distinct mass effect clearly identified on the opacified pulmonary arteri al tree. Mild lymphadenopathy, presumably reactive. Reviewed, dictated and finalized at location . CLEANER APPRENTICE Impression: Extensive, dense consolidation in the right lung, with scattered focal areas of consolidation left lung. Findings are compatible with extensive pneumonia. Und erlying neoplastic lesion is difficult to completely exclude, though no distinc t mass effect clearly identified on the opacified pulmonary arterial tree. Mild lymphadenopathy, presumably reactive.
--- NOTE | ~2022-11-12 | US_ITS ---
EXAMINATION: US right upper quadrant DATE: 11/16/2022 09:34 INDICATION: Abnormal liver function tests. TECHNIQUE: Multiple grayscale and Doppler ultrasound images of the abdomen were obtained. COMPARISON: CT abdomen and pelvis 11/15/2022 FINDINGS: The visualized portions of the head and body of the pancreas are normal. The liver is carina l without focal lesion. There is normal flow in main portal vein. The gallbladder is normal in size a nd contains a gallstone. No gallbladder wall thickening or sonographic Teran sign. The common duct i s mildly dilated and measures 7 mm. IMPRESSION: 1. Cholelithiasis. No evidence of acute cholecystitis. 2. Mildly dilated common duct. Reviewed, dictated and finalized at location A. NG TENDER
--- NOTE | ~2022-11-12 | CT_ITS ---
EXAMINATION: CT abdomen pelvis wo con DATE: 11/15/2022 13:30 INDICATION: Abdominal tenderness. TECHNIQUE: Computed tomography (CT) of the abdomen and pelvis was performed without intravenous contr ast. Automated exposure control and iterative reconstruction technique were employed. The dose-length product was 1419.87 mGy-cm. COMPARISON: CT abdomen and pelvis 11/12/2022 FINDINGS: The visualized portions of the lung bases demonstrate patchy airspace and groundglass opaci ties in all lobes, right worse than left, consistent with pneumonia. A calcified right lung nodule is consistent with old granulomatous disease. There are small pleural effusions. The heart size is norm al. There are coronary artery calcifications. No pericardial effusion. The liver and spleen are carina l. The gallbladder is distended. The pancreas and adrenal glands are normal. There is cortical thinni ng of the kidneys. There are persistent bilateral contrast nephrograms, consistent with decreased kid carlo function. There is wall thickening of the descending and sigmoid colon. The appendix is normal. T here is endoluminal contrast in the proximal colon. There are no pathologically enlarged lymph nodes. There is a small volume of ascites. The bladder is decompressed by a Mejia catheter. There is severe osteoarthritis of the hips. There is severe lumbar spondylosis and moderate thoracic spondylosis. Th ere is mild chronic anterior wedging of multiple vertebral bodies. IMPRESSION: 1. Gallbladder distention, which may be secondary to fasting or acalculous cholecystitis. 2. Extensive pneumonia, right worse than left. 3. Small pleural effusions. 4. Small volume of ascites. 5. Wall thickening of the descending and sigmoid colon, consistent with interstitial edema versus col itis. Reviewed, dictated and finalized at location A. ING SIGNAL OFFICER IMPRESSION: 1. Gallbladder distention, which may be secondary to fasting or acalculous chol ecystitis. 2. Extensive pneumonia, right worse than left. 3. Small pleural effusions. 4. Small volume of ascites. 5. Wall thickening of the descending and sigmoid colon, consistent with interst itial edema versus colitis.
--- NOTE | ~2022-11-12 | US_ITS ---
EXAMINATION: US venous doppler [facility] DATE: 11/19/2022 16:48 INDICATION: Upper limb edema. TECHNIQUE: Grayscale ultrasound images without and with compression and Doppler ultrasound images of the bilateral upper extremity veins were obtained. COMPARISON: None. FINDINGS: The visualized portions of the right internal jugular vein, subclavian vein, axillary vein, brachial veins, basilic vein, cephalic vein, radial vein, and ulnar vein are patent. The visualized portions of the left internal jugular vein, subclavian vein, axillary vein, brachial v eins, basilic vein, cephalic vein, radial vein, and ulnar vein are patent. IMPRESSION: 1. No deep venous thrombosis. Reviewed, dictated and finalized at location A. X ARCHITECT
--- NOTE | ~2022-11-12 | MR_ITS ---
MRI of the brain Clinical History: Altered mental status Technique: Sagittal T1-weighted imaging was performed. Axial b1000 diffusion weighted sequence was pe rformed. Exam terminated without additional imaging due to altered mental status in patient cooperati on. Findings: Sagittal midline structures are intact. No gross structural abnormality seen on limited seq uences available. IMPRESSION: Extremely limited, incomplete exam, as above. Reviewed, dictated and finalized at location M. RESS MACHINE OPERATOR
--- NOTE | ~2022-11-12 | XR_ITS ---
EXAMINATION: XR chest 1V portable DATE: 11/12/2022 21:21 INDICATION: Chest pain. Shortness of breath. TECHNIQUE: A single frontal view of the chest was obtained. COMPARISON: CT abdomen and pelvis 11/12/2022 FINDINGS: There are confluent airspace opacities in right upper lobe and superior segment right lower lobe. There are patchy airspace opacities bilaterally. No pleural effusion or pneumothorax. The hear t size is normal. Calcified right hilar lymph nodes are consistent with old granulomatous disease. IMPRESSION: 1. Bilateral pneumonia, right worse than left. Reviewed, dictated and finalized at location A. COAL KILN BURNER
--- NOTE | ~2022-11-12 | XR_ITS ---
EXAMINATION: XR chest 1V portable INDICATION: Shortness of breath TECHNIQUE: Portable AP chest at 1455 hours COMPARISON: 11/20/2022 FINDINGS: A right upper extremity PICC ends with its tip in the midsuperior vena cava. Airspace opaci ties of the right mid and upper lung zones persist without significant change. Right perihilar opacit ies have slightly improved. Bibasilar airspace opacities are also not significantly changed. No pleur al effusion or pneumothorax. The cardiomediastinal silhouette is stable. IMPRESSION: 1. Bilateral airspace opacities as described above, with slight improvement in the right perihilar re gion, consistent with pneumonia. Reviewed, dictated and finalized at location B. Y DUTY CUSTODIAN IMPRESSION: 1. Bilateral airspace opacities as described above, with slight improvement in the right perihilar region, consistent with pneumonia.
--- NOTE | 2022-11-12 19:48 | ED.NAVMDI ---
HPI - Nausea/Vomiting/Diarrhea General Chief complaint: Nausea/Vomiting/Diarrhea Stated complaint: weakness Time Seen by Provider: 11/12/22 19:43 Source: patient and family Mode of arrival: ambulatory Limitations: no limitations History of Present Illness HPI Narrative: Patient 62 years old white female came to the emergency room by private car with her daughter with chest pain, shortness of breath, body aches, fever, diarrhea, nausea and vomiting, general weakness. Patient tested positive for COVID 4 weeks ago, 3 weeks later had the above symptoms. Patient reports getting back to normal for 1 week after COVID infection History of diabetes, hyperlipidemia and hysterectomy. Currently patient main complaint is general body aches. And thirsty Related Data Home Medications Medication Instructions Recorded Confirmed diclofenac sodium 1 % topical gel See Rx Instructions .Route .COMPLEX 11/14/22 11/14/22 Allergies Allergy/AdvReac Type Severity Reaction Status Date / Time aspirin Allergy Unknown Unknown Verified 05/07/22 13:02 nickel Allergy Unknown Unknown Verified 05/07/22 13:02 Penicillins Allergy Unknown unknonw Verified 05/07/22 13:02 ranitidine Allergy Unknown unknown Verified 05/07/22 13:02 Review of Systems Review of Systems: All systems reviewed & are unremarkable except as noted in HPI and below PMFSH Past Medical History Medical History (Updated 11/13/22 @ 08:26 by Raissa Pollock DO) Arterial insufficiency Chronic kidney disease, stage 3a Depressive disorder, not elsewhere classified (~2008) Diabetic foot ulcer Esophagitis Fibromyalgia syndrome (~2008) Former very heavy cigarette smoker (more than 40 per day) History of sleep apnea Osteoarthritis involving multiple joints on both sides of body (~2017) Osteopenia after menopause (~10/2018) 11/08/2018: DEXA scan showed normal hip and lumbar BMD compared to 07/11/2013 from [facility]: Dr. Ad Rockwell Postmenopausal (~2010) Normal DEXA scan 2018 PVD (peripheral vascular disease) Rheumatoid arthritis involving multiple sites with positive rheumatoid factor (~1998) Type 2 diabetes mellitus with diabetic polyneuropathy (~2012) Vitamin D deficiency, unspecified Surgical History Surgical History History of genital warts 1983 - s/p Excision History of hysterectomy 2004 S/P hysterectomy with oophorectomy (~1988) Family History Family History Father Family history of kidney disease Mother Family history of kidney disease Other Asthma Depression Diabetes mellitus Family history of Alzheimer's disease Family history of alcoholism Family history of arthritis Family history of atrial fibrillation Family history of chronic obstructive pulmonary disease Family history of congestive heart failure Family history of elevated blood lipids Family history of glaucoma Family history of liver disease Family history of lung disease Family history of mental disorder Family history of osteoporosis Family history of thyroid disease Hypertension Social History Social History Social History: disabled Years smoked: 40 Smoking status: Former smoker Tobacco type: cigarettes Smoking end date: 10/26/10 Alcohol intake: never Substance use: never Lack of Transportation: No Lack of Food: Never True Current Housing: I Have Housing Concerned About Future Housing: No Difficulty Paying Gas/Electric Bills: No Difficulty Paying for Meds: No Currently Unemployed: No Education: High School Diploma/GED Difficulty w/ Childcare or Family Care: No Living arrangements: alone Occupation/Education: other Gender identity (if verbalized by the patient): Female Spiritual care concerns: No Agree to blood products: Yes Exam Narrative:
[2022-11-12 19:55] LABS: Hematocrit 34.9 % (37.0-47.0); Hemoglobin 12.4 g/dL (12.0-15.0); Mean Corpuscular HGB Conc 35.5 g/dl (32-36); Mean Corpuscular Hemoglobin 28.8 pg (26-34); Mean Corpuscular Volume 81.2 fl (80-100); Mean Platelet Volume 12.3 fl (7.4-10.4); Platelet Count Result 161 k/mm3 (150-375); Red Cell Distribution Width 15.4 % (11.5-14.5); White Blood Count 27.2 K/mm3 (4.5-10.0)
[2022-11-12] MEDS: SODIUM CHLORIDE 0.9% IV 1,000 ML 999 ML IV CONT (20:11)
[2022-11-12 20:13] LABS: Alanine Aminotransferase 38 U/L (6-35); Albumin Level 2.8 g/dL (3.5-5.1); Alkaline Phosphatase 363 U/L (38-126); Anion Gap 14 mmol/L (8-16); Aspartate Amino Transferase 66 U/L (14-36); Bilirubin,Total 1.2 mg/dL (0.2-1.3); Blood Urea Nitrogen 50 mg/dL (7-17); Calcium 8.9 mg/dL (8.4-10.2); Carbon Dioxide 18 mmol/L (22-30); Chloride 105 mmol/L (98-107); Estimated CRCL calculation 53 ml/min; Estimated Glomerular Filt Rate 46; Glucose 253 mg/dL (65-110); Lipase 167 U/L (23-300); Potassium 2.4 mmol/L (3.4-5.0); Sodium 137 mmol/L (137-145)
[2022-11-12] MEDS: ONDANSETRON INJ 4 MG/2 ML VIAL IV PUSH (20:13)
[2022-11-12 20:14] LABS: Band Neutrophils Percent 6 % (0-6); Lymphocytes Absolute Manual 0.54 K/mm3 (1.1-4.5); Lymphocytes Percent Manual 2 % (18-44); Monocytes Absolute Manual 0.27 K/mm3 (0.1-0.90); Monocytes Percent Manual 1 % (3-9); Neutrophils Absolute Manual 26.38 K/mm3 (1.7-7.2); Neutrophils Percent Manual 91 % (46-73); Platelet Estimate Adequate (Adequate); Schistocytes None Seen (NORMAL); Total Cells Counted 100
[2022-11-12] MEDS: MORPHINE SULFATE (*CRX) 4 MG/ML INJ IV PUSH (20:15)
--- NOTE | 2022-11-12 20:15 | ECG_ITS ---
Measurements Intervals [place] Rate: 99 P: 71 DC: 164 QRS: 57 QRSD: 113 T: 35 QT: 380 QTc: 490 Interpretive Statements SINUS RHYTHM VENTRICULAR PREMATURE COMPLEX INTRAVENTRICULAR CONDUCTION DELAY NONSPECIFIC T-WAVE ABNORMALITY- INFERIOR LEADS BASELINE ARTIFACT- I, II, III, AVR, V4-V6 ABNORMAL ECG NO PREVIOUS ECG AVAILABLE FOR COMPARISON Electronically Signed On 11-13-2022 7:43:08 EQUIPMENT SERVICE ENGINEER by Javier Luong D.O.
[2022-11-12 20:34] LABS: INR 1.3; Partial Thromboplastin Time 27.4 SECONDS (22.3-36.8)
[2022-11-12] MEDS: POTASSIUM CHLORIDE INJ 40 MEQ in SODIUM CHLORIDE 0.9% IV 500 ML 130 MEQ IVPB (21:04)
[2022-11-12 21:09] LABS: SARS-CoV-2 RNA PCR Negative
[2022-11-12 21:32] LABS: Alveolar/Arterial O2 Gradient 86.2 mmHg; Base Excess ABG -6.6 mEq/l (+/-2.0); Fractional Inspired Oxygen 28 %; HCO3 ABG 18.9 mEq/l (22.0-26.0); Oxygen Content ABG 15.6 %vol (16.0-22.0); Oxygen Saturation ABG 92.4 % (95.0-100.0); Oxyhemoglobin 90.2 % THb (90.0-100.0); PCO2 ABG 37.9 mmHg (35.0-45.0); PO2 ABG 68.7 mmHg (80.0-100.0); PO2 FiO2 Ratio Arterial Blood 2.45 %; Total Hemoglobin 12.3 g/dL (12.0-18.0); pH ABG 7.316 (7.350-7.450)
[2022-11-12 21:34] LABS: Device NASAL CANNULA; Modified Allen's Test Pass; Site Drawn RIGHT RADIAL
[2022-11-12 22:04] LABS: Lactic Acid Reflex 1.7 mmol/L (0.7-2.0)
--- NOTE | 2022-11-12 22:20 | PM.IMHP ---
H&P: HPI History of Present Illness Date/Time: 11/12/22 22:20 Chief Complaint: Body aches Narrative: 62-year-old female with a past medical history of peripheral vascular disease, diabetic peripheral neuropathy, chronic kidney disease and rheumatoid arthritis who presented to the ER via EMS with body aches, nausea vomiting and weakness. The patient tested positive for COVID 4 weeks ago. She reports that her symptoms had improved but then recently worsened again. With associated symptoms including cough and intermittent fever. When EMS arrived at the patient's residence patient was satting 80% on room air. She does not usually wear oxygen. She states that she was having nausea vomiting about 8-10 days ago but the vomiting stopped 3 or 4 days ago. Her emesis was also black in color. However, she then developed diarrhea over the last 3-4 days and 7 having 3 watery black stools a day. She does have a history of chronic urinary urgency and wears bladder pads at all times. She denies any dysuria. She reports that her cough is been bad for about the last week. Her cough is nonproductive. She denies a history of COPD but does have a 3 pack per year smoking history for 40 years but quit in 2010. She does not use any nebulizers at home. Initially on arrival to the ER she was requiring 2 L nasal cannula. She received 1 L of IV fluids. Shortly after she returned from CT scan the patient's oxygen requirement increased and her breath sounds began to become overly course. Her oxygen was titrated up to 6 L nasal cannula while I was at bedside to maintain oxygen saturations greater than 88%. She received a nebulizer treatment after nebulizer treatment her oxygen requirement went down to 5 L nasal cannula. She reports that her highest temperature was about a week ago and was 102.5. She has not had a fever in the last several days. The patient's daughter came to visit her at home today and found the patient in bed and unable to get up. She called EMS to bring the patient in. The patient also was noted to have cold digits on her left foot. She does have known peripheral artery disease. However her left foot has been hurting her more so over the last 6 months. The patient has 2nd cap refill of the left great toe but hien absent cap refill of the 2nd through 5th toes. However we were able to use a Doppler to find a dorsalis pedis pulse. The side of the pulse was marked. The patient reports that she hurts all over and just feels ill. She still has no appetite for the last 4-5 days and has had virtually no oral intake. She had not gotten out of bed in 4 days. While in the ER the patient was noted to flip into AFib RVR. Nursing staff give the patient 10 mg of IV Cardizem as they Cardizem was being pushed the patient already flip back into sinus rhythm. But the patient did 0 back in AFib RVR prior to going to the IMU. As nursing staff his gait rate 2: Update me to the patient's change in rhythm she again flip back into sinus rhythm. The patient was initially admitted to medical with telemetry but given the rapid decline in her condition while still in the ER patient's bed placement was transitioned to intermediate unit. The patient The patient had a COVID PCR performed in the ER that was negative. Source of information is ER reports and outpatient records. Patient herself is a poor to fair historian. Review of Systems Review of Systems: 12 systems were reviewed with pertinent positives and negatives per HPI. Except as documented in the HPI, all other systems were reviewed and are negative. [facility] Past Medical History Medical History (Updated 11/13/22 @ 08:26 by Raissa Pollock DO) Arterial insufficiency Chronic kidney disease, stage 3a Depressive disorder, not elsewhere classified (~2008) Diabetic foot ulcer Esophagitis Fibromyalgia syndrome (~2008) Former very heavy cigarette smoker (more than 40 per day) History of sleep apnea Osteoarthritis
--- NOTE | 2022-11-12 22:42 | ECG_ITS ---
Measurements Intervals [place] Rate: 144 P: MT: 0 QRS: 50 QRSD: 113 T: -49 QT: 324 QTc: 502 Interpretive Statements ATRIAL FIBRILLATION WITH RAPID VENTRICULAR RESPONSE VENTRICULAR PREMATURE COMPLEXES INTRAVENTRICULAR CONDUCTION DELAY NONSPECIFIC ST & T-WAVE ABNORMALITY- DIFFUSE LEADS ABNORMAL ECG COMPARED TO ECG 11/12/2022 21:02:23 ATRIAL FIBRILLATION NOW PRESENT Electronically Signed On 11-13-2022 7:46:22 COOKEE by Javier Luong D.O.
--- NOTE | 2022-11-12 22:48 | PC.NURSE ---
Pt noted to be in Afib with rvr. EKG obtained. Dr. Phill mayen.
[2022-11-12 23:00] LABS: Magnesium 2.3 mg/dL (1.6-2.3); Phosphorus 7.2 mg/dL (2.5-4.5)
[2022-11-12] MEDS: dilTIAZem HCl INJ 25 MG/5 ML VIAL 10 MG IV PUSH (23:00)
[2022-11-12 23:01] LABS: CRP 33.4 mg/dL (<1.0)
--- NOTE | 2022-11-12 23:02 | ECG_ITS ---
Measurements Intervals [place] Rate: 98 P: 64 MN: 163 QRS: 52 QRSD: 108 T: 19 QT: 329 QTc: 421 Interpretive Statements SINUS RHYTHM VENTRICULAR PREMATURE COMPLEX BORDERLINE ST-T WAVE ABNORMALITY- INF/LAT LEADS BASELINE ARTIFACT- I, II, III, AVR, AVL, AVF, V1-V6 BORDERLINE ECG COMPARED TO ECG 11/12/2022 22:46:18 SINUS RHYTHM NOW PRESENT Electronically Signed On 11-13-2022 7:47:43 INSPECTOR AND CLERK by Javier Luong D.O.
--- NOTE | 2022-11-12 23:09 | PC.NURSE ---
Supplemental oxygen increased to 3L nasal cannula. Oxygen saturation decreased to 88%. Dr. Richardson notified.
[2022-11-12] MEDS: PANTOPRAZOLE SODIUM IV 40 MG VIAL IV PUSH (23:23)
[2022-11-12] MEDS: POTASSIUM CHLORIDE 20 MEQ TABLET 40 MEQ PO (23:23)
[2022-11-12] MEDS: IPRATROPIUM BR 0.02% INH SOLN 0.5 MG/2.5 ML VIAL INHALATION (23:32)
[2022-11-12] MEDS: ALBUTEROL SULFATE NEB 2.5 MG/3 ML INH 5 MG INHALATION (23:32)
--- NOTE | 2022-11-12 23:33 | PC.NURSE ---
Cap refill to left toes >3 seconds. Pedal pulse confirmed with doppler.
[2022-11-13] VITALS (18 sets, daily range): BP systolic 127–165; BP diastolic 52–67; PULSE 82–140; RESP 20–24; TEMP 35.8–36.6; O2SAT 91–100; BMI 30.4
--- NOTE | 2022-11-13 | ECHO_ITS ---
Patient Info Name: Camille Sesay Age: 62 years : 1960 Gender: Female Ht: 68 in Wt: 200 lbs BSA: 2.11 m2 HR: 90 bpm BP: 165 / 61 mmHg Technical Quality: Fair Exam Date: 11/13/2022 9:56 AM Exam Location: [facility] Patient Status: Inpatient Admit Date: 11/12/2022 Staff Ordering Physician: Raissa Pollock DO Processing Engineer: Yaya Teran RDCS, RT Attending Provider: Raissa Pollock DO Referring Physician: Phill GUPTA; Exam Type: CA echo doppler color flow Study Info Indications I48.0 - Paroxysmal atrial fibrillation Complete two-dimensional, color flow and Doppler transthoracic echocardiogram is performed. Strain analysis performed. Summary 1. Complete two-dimensional, color flow and Doppler transthoracic echocardiogram is performed. 2. Left ventricular chamber dimension is normal. 3. Left ventricular systolic function is normal, estimated at 60-65%. 4. The left ventricular diastolic function is normal. 5. E/e' 8 is minimally elevated. 6. Global longitudinal strain is abnormal at -15.8%. 7. There is trace tricuspid valve regurgitation. 8. No pulmonary hypertension, estimated pulmonary arterial systolic pressure is 34 mmHg. Left Ventricle E/e' 8 is minimally elevated. Global longitudinal strain is abnormal at -15.8%. Left ventricular chamber dimension is normal. Left ventricular systolic function is normal, estimated at 60-65%. The left ventricular diastolic function is normal. Right Ventricle Right ventricular systolic function is normal and with normal TAPSE 2.4 cm. Right ventricular chamber dimension is normal. Left Atria Left atrial chamber dimension is normal. Right Atria Right atrial chamber dimension is normal. Aortic Valve The aortic valve is trileaflet. There is no aortic valve stenosis. There is no aortic valve regurgitation. Pulmonic Valve There is no pulmonic regurgitation. Mitral Valve There is no mitral valve stenosis. There is no mitral valve regurgitation. Tricuspid Valve There is trace tricuspid valve regurgitation. No pulmonary hypertension, estimated pulmonary arterial systolic pressure is 34 mmHg. Pericardium/Pleural There is no pericardial effusion. Inferior Vena Cava Normal inferior vena cava with >50% collapse upon inspiration consistent with normal right atrial pressure, 5 mmHg. Aorta The aortic root size at the sinus of Valsalva is normal. Left Ventricular Outflow Tract Name Value Normal LVOT 2D LVOT Diameter 2.0 cm LVOT Doppler LVOT Peak Gradient 6 mmHg LVOT Mean Gradient 3 mmHg LVOT VTI 23 cm LVOT VTI/AV VTI Ratio 0.8 LVOT Stroke Volume 74 ml LVOT CO 6.8 l/min LVOT CI 3.2 l/min/m2 Mitral Valve Name Value Normal MV
--- NOTE | 2022-11-13 00:38 | ADMGEN ---
This patient, Camille Sesay, was admitted to IMU 209 at 0018. Patient/family oriented to hospital policies and general routines including ID bracelet, bed and alarms, visiting hours, pain management, procedures, bathroom and other care routines, personal items, smoking policy, room service/diet, and visiting hours. Information on how to activate the Rapid Response Team has been discussed. Patient/Family are encouraged to report perceived risks to care and to ask questions if they do not understand what they are told or what they should do.
[2022-11-13] MEDS: SODIUM CHLORIDE 0.9% IV 1,000 ML 150 ML IV CONT ×3 (01:14→18:28)
[2022-11-13 04:16] LABS: Hematocrit 34.6 % (37.0-47.0); Hemoglobin 11.9 g/dL (12.0-15.0); Mean Corpuscular HGB Conc 34.4 g/dl (32-36); Mean Corpuscular Hemoglobin 28.8 pg (26-34); Mean Corpuscular Volume 83.8 fl (80-100); Mean Platelet Volume 11.8 fl (7.4-10.4); Platelet Count Result 153 k/mm3 (150-375); Red Blood Count 4.13 M/mm3 (4.2-5.4); Red Cell Distribution Width 16.2 % (11.5-14.5); White Blood Count 25.1 K/mm3 (4.5-10.0)
[2022-11-13 04:29] LABS: Anion Gap 12 mmol/L (8-16); Blood Urea Nitrogen 47 mg/dL (7-17); Calcium 8.8 mg/dL (8.4-10.2); Carbon Dioxide 17 mmol/L (22-30); Chloride 110 mmol/L (98-107); Estimated CRCL calculation 52 ml/min; Estimated Glomerular Filt Rate 46; Glucose 242 mg/dL (65-110); Potassium 2.9 mmol/L (3.4-5.0); Sodium 139 mmol/L (137-145)
[2022-11-13 05:12] LABS: Anisocytosis 2+ (NORMAL); Band Neutrophils Percent 21 % (0-6); Lymphocytes Absolute Manual 0.75 K/mm3 (1.1-4.5); Macrocytosis 2+ (NORMAL); Metamyelocytes Percent 1 %; Monocytes Absolute Manual 0.25 K/mm3 (0.1-0.90); Monocytes Percent Manual 1 % (3-9); Neutrophils Absolute Manual 23.84 K/mm3 (1.7-7.2); Neutrophils Percent Manual 74 % (46-73); Nucleated Red Blood Cells 1 %; Platelet Estimate Adequate (Adequate); Total Cells Counted 100
[2022-11-13 05:13] LABS: Hypochromasia 1+ (NORMAL); Poikilocytosis 2+ (NORMAL); Schistocytes 1+ (NORMAL); Target Cells 1+ (NORMAL); Tear Drop Cells 1+ (NORMAL)
[2022-11-13 05:14] LABS: Burr Cells 1+ (NORMAL); Crenated RBC 1+ (NORMAL); Hyperchromasia 1+ (NORMAL)
[2022-11-13 06:17] LABS: Appearance Urine Clear (Clear); Bilirubin Urine 1+ (Negative); Blood Urine 1+ (Negative); Color Urine Yellow (Yellow); Glucose Urine UA Negative (Negative); Ketones Urine Negative (Negative); Leukocyte Esterase Ur Negative LEU/UL (Negative); Nitrate Urine Negative (Negative); Protein Urine 2+ mg/dL (Negative); pH Urine 5.5 (5.0-9.0)
[2022-11-13 06:19] LABS: Mucus Urine Rare /lpf; Squamous Epithelial Cell Urine Occasional /hpf (Few); WBC Urine 0-3 /hpf
[2022-11-13 06:29] LABS: Add Urine Microscopic? YES
[2022-11-13 06:33] LABS: Influenza A QL RT-PCR Negative (Negative); Influenza B QL RT-PCR Negative (Negative)
[2022-11-13 06:41] LABS: Glucose Point of Care 221 mg/dl (65-105)
[2022-11-13] MEDS: METOPROLOL TARTRATE INJ 5 MG/5 ML VIAL IV PUSH (06:41)
--- NOTE | 2022-11-13 06:47 | ECG_ITS ---
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
[2022-11-13] MEDS: MORPHINE SULFATE (*CRX) 2 MG/ML INJ IV PUSH ×2 (07:13→18:15)
[2022-11-13 07:23] LABS: Alanine Aminotransferase 36 U/L (6-35); Albumin Level 2.2 g/dL (3.5-5.1); Alkaline Phosphatase 316 U/L (38-126); Aspartate Amino Transferase 57 U/L (14-36); Bilirubin,Total 0.8 mg/dL (0.2-1.3)
[2022-11-13 07:28] LABS: Troponin I < 0.012 ng/mL (0.000-0.034)
--- NOTE | 2022-11-13 08:33 | PM.EVENT ---
Event Note Event Note Event Note: 11/13/2022 at 06:50 I was called to the patient's bedside by nursing staff just before shift change. The patient had become acutely diaphoretic and was complaining of severe abdominal and back pain. The patient was in tachycardic. Stat EKG was performed which did not demonstrate any changes in ST or T-wave abnormality. Rhythm appears to be either sinus tach with PACs or AFib. Rate had improved from prior and was down to the low 100s. Blood pressures were stable. However patient was markedly mottled now up through her thighs including mottling of her upper extremities as well. The patient's core was warm to touch but all extremities were cold to touch, patient had 4-5 second cap refill and perfusion appeared decreased despite the patient having received IV fluids. Patient had not had any further and vomiting or diarrhea. The patient's oxygenation was stable in 6 L nasal cannula. Lung exam remained coarse breath sounds with crackles. The patient was crying and tachypneic. The patient had speech that was difficult to understand but no localizing deficits. Overall the patient's lung exam was stable but her overall exam seemed to worsened. The patient was intermittently fighting with nursing staff trying to get her oxygen off. I had initially ordered an additional 40 mEq p.o. potassium this was switched to IV due to change in the patient's condition. Patient's CT was reviewed and demonstrated significant bilateral pneumonia without evidence of pulmonary embolism. Nursing staff told me that the patient had had urinary retention when Mejia catheter was placed a and has had return of 650 mL of urine. She has no palpable organomegaly in her abdomen exam is benign despite her reporting generalized abdominal pain. The patient had not yet received Protonix. Stat troponins were ordered and resulted as negative. I have changed the patient's nebulizer treatments to Xopenex and Atrovent. The patient had received IV Lopressor that I ordered and route to the room and had improvement in her heart rate down to the 1 teens from the 130s. Patient remained afebrile. I had already broaden the antibiotic coverage for the patient to cefepime vanc and Flagyl. Blood cultures are still pending. Patient's hemoglobin had trended down to 11.9. White count had risen to 25 and the patient had developed bandemia of 21%. Patient's creatinine remained stable. Hepatic function panel was added to the morning labs and transaminases were stable. Overall the patient is still in severe sepsis but despite current treatment condition seems slightly worse. Unfortunately wave maximize care. Will continue to monitor closely. Continue antibiotic therapy. Avoid QT prolonging medications. Will get echocardiogram. Again nebulizers have been changed from albuterol to Xopenex. Given the patient's report of severe abdominal pain and coffee-ground emesis and melena will change patient's diet back to clear liquid diet. 45 minutes spent in critical care activities Due to a high probability of clinically significant, life threatening deterioration, the patient required my highest level of preparedness to intervene emergently and I personally spent this critical care time directly and personally managing the patient. This critical care time included obtaining a history; examining the patient; pulse oximetry; ordering and review of studies; arranging urgent treatment with development of a management plan; evaluation of patient's response to treatment; frequent reassessment; and discussions with other providers. It was exclusive of separately billable procedures and treating other patients and teaching time. Please see Assessment and Plan section and the rest of the note for further information on patient assessment and treatment.
[2022-11-13 08:54] LABS: Glucose Point of Care 206 mg/dl (65-105)
[2022-11-13] MEDS: POTASSIUM CHLORIDE INJ 40 MEQ in SODIUM CHLORIDE 0.9% IV 500 ML 130 MEQ IVPB (08:59)
[2022-11-13] MEDS: metroNIDAZOLE 500 MG/ISO 100ML 500 MG/100 ML BAG 100 MG IVPB ×3 (08:59→21:37)
[2022-11-13] MEDS: PANTOPRAZOLE SODIUM IV 40 MG VIAL IV PUSH ×2 (09:06→21:38)
[2022-11-13] MEDS: ENOXAPARIN 40 MG/0.4 ML SYRINGE SUB-Q (09:06)
--- NOTE | 2022-11-13 09:31 | PM.IMPN ---
Progress Note: A&P Assessment and Plan (1) Sepsis: Qualifiers: Sepsis type: sepsis due to unspecified organism Sepsis acute organ dysfunction status: with acute organ dysfunction Severe sepsis acute organ dysfunction type: acute respiratory failure Acute respiratory failure type: with hypoxia Severe sepsis shock status: without septic shock Qualified Code(s): A41.9 - Sepsis, unspecified organism; R65.20 - Severe sepsis without septic shock; J96.01 - Acute respiratory failure with hypoxia Code(s): A41.9 - Sepsis, unspecified organism Status: Acute Assessment and Plan: IV fluid resuscitation Monitor lactic acid levels Repeat CBC CMP Two sets of Blood cultures urine cultures pending C-reactive protein, procalcitonin level. IV antibiotics Flagyl, vanco, cefepime Patient advice to quit smoking. Bronchodilators. Spirometry 2D echo Evaluation for home O2 if saturations less than 88% on room air Follow-up with primary care and auto striper routine HBA1c ( goal <7.0%) , Renal functions, Liver panel every 3 months Monitor vitamin B12 levels Optimize YOLY-inhibitor and statin Routine glucose monitoring. Watch for Hypoglycemia. BMI goal < 25 Sliding scale insulin New onset atrial fibrillation with rapid ventricular response. Starting IV Lopressor. Monitor electrolytes. consult Cardiology Creatinine 1.2. And gentle hydration. Avoid nephrotoxic drugs. Monitor antihypertensive drugs Avoid NSAIDs. Routine CMP monitor GFR. Monitor electrolytes potassium levels. Potassium 2.9 Dose antibiotics depending on creatinine clearance History of rheumatoid arthritis and on immunosuppressive drugs will hold for right now (2) Acute hypokalemia: Code(s): E87.6 - Hypokalemia Status: Acute (3) Community acquired pneumonia: Code(s): J18.9 - Pneumonia, unspecified organism Status: Acute (4) Claudication of left lower extremity: Code(s): I73.9 - Peripheral vascular disease, unspecified Status: Acute (5) Type 2 diabetes mellitus with hyperglycemia, without long-term current use of insulin: Code(s): E11.65 - Type 2 diabetes mellitus with hyperglycemia Status: Acute Subjective Date/time seen: 11/13/22 09:31 Interval history: 62-year-old female history of peripheral vascular disease, diabetic neuropathy, rheumatoid arthritis, has been tested positive for COVID 4 weeks ago. Patient not using oxygen at home. Patient has nonproductive cough and currently on 2 L of oxygen Exam Narrative: GENERAL: Well appearing, well-nourished, non-toxic, in no acute distress. HEAD: Normocephalic, atraumatic. NECK: Supple. No adenopathy, no masses. RESPIRATORY: Airway patent, respirations nonlabored. Clear to auscultation bilaterally, no rales, rhonchi, wheezing. CARDIOVASCULAR: Regular rate and rhythm without murmurs, rubs, or gallops. Peripheral pulses 2+ and equal bilaterally. ABDOMINAL: Soft, nontender, nondistended, no hepatosplenomegaly. Normoactive BS. MUSCULOSKELETAL: no Epigastric and no hypochondrial tenderness SKIN: Warm, dry, normal color. No rashes. NEURO: A&O X3. Moves all extremities PSYCHIATRIC: Appropriate mood and affect. Normal interaction. Objective Data Vital Signs Vital Signs: Vital Signs - 24 hr 11/12/22 19:39 11/12/22 20:26 11/12/22 20:26 Temperature Pulse Rate 111 H Respiratory Rate 27 H Blood Pressure 173/74 H Pulse Oximetry 90 88 L 93 Oxygen Delivery Room Air Room Air Nasal Cannula Oxygen Flow Rate 2 11/12/22 22:42 11/12/22 23:07 11/12/22 23:07 Temperature Pulse Rate 145 H Respiratory Rate 26 H Blood Pressure 145/79 H Pulse Oximetry 92 90 88 L Oxygen Delivery Nasal Cannula Nasal Cannula Oxygen Flow Rate 2 3 11/12/22 21:53 11/12/22 23:33 11/12/22 23:41 Temperature 36.3 C L Pulse Rate 102 H 88 90 Respiratory Rate 24 H 26 H 30 H Blood Pressure 153/78 H 181/64 H Pulse Oximetry 94 94 Oxyg
[2022-11-13 10:17] LABS: Troponin I < 0.012 ng/mL (0.000-0.034)
[2022-11-13] MEDS: IPRATROPIUM BR 0.02% INH SOLN 0.5 MG/2.5 ML VIAL INHALATION ×3 (10:21→19:45)
[2022-11-13] MEDS: LEVALBUTEROL NEB 1.25 MG/3 ML 0.63 MG INHALATION ×3 (10:22→19:45)
[2022-11-13 12:26] LABS: Glucose Point of Care 256 mg/dl (65-105)
[2022-11-13 12:46] LABS: Troponin I < 0.012 ng/mL (0.000-0.034)
[2022-11-13] MEDS: INSULIN ASPART (*BKC) 100 UNITS/ML SUB-Q (13:06)
--- NOTE | 2022-11-13 15:32 | PC.NURSE ---
[place] results show fluid responsiveness. Dr. Horne made aware.
[2022-11-13 15:42] LABS: Amphetamine Screen Urine Negative (Negative); Barbiturate Screen Urine Negative (Negative); Benzodiazepines Screen Urine Negative (Negative); Cannabinoid Screen Urine Positive (Negative); Cocaine Screen Urine Negative (Negative); Methadone Screen Urine Negative (Negative); Opiate Screen Urine Positive (Negative); Phencyclidine Screen Urine Negative (Negative)
[2022-11-13 17:13] LABS: Glucose Point of Care 206 mg/dl (65-105)
[2022-11-13 21:46] LABS: Glucose Point of Care 198 mg/dl (65-105)
[2022-11-14] VITALS (24 sets, daily range): BP systolic 122–162; BP diastolic 38–67; PULSE 84–140; RESP 15–24; TEMP 36–36.6; O2SAT 94–99
[2022-11-14] MEDS: MORPHINE SULFATE (*CRX) 2 MG/ML INJ IV PUSH ×4 (00:37→21:57)
[2022-11-14] MEDS: METOPROLOL TARTRATE INJ 5 MG/5 ML VIAL IV PUSH ×2 (01:30→05:16)
[2022-11-14] MEDS: LEVALBUTEROL NEB 1.25 MG/3 ML 0.63 MG INHALATION ×3 (02:53→13:08)
[2022-11-14] MEDS: IPRATROPIUM BR 0.02% INH SOLN 0.5 MG/2.5 ML VIAL INHALATION ×3 (02:53→13:07)
[2022-11-14] MEDS: SODIUM CHLORIDE 0.9% IV 1,000 ML 150 ML IV CONT ×2 (03:46→17:34)
[2022-11-14 05:08] LABS: Hematocrit 31.2 % (37.0-47.0); Hemoglobin 10.4 g/dL (12.0-15.0); Mean Corpuscular HGB Conc 33.3 g/dl (32-36); Mean Corpuscular Hemoglobin 28.7 pg (26-34); Mean Platelet Volume 12.6 fl (7.4-10.4); Platelet Count Result 143 k/mm3 (150-375); Red Blood Count 3.63 M/mm3 (4.2-5.4); Red Cell Distribution Width 17.2 % (11.5-14.5)
[2022-11-14] MEDS: metroNIDAZOLE 500 MG/ISO 100ML 500 MG/100 ML BAG 100 MG IVPB (05:17)
[2022-11-14 05:26] LABS: Alanine Aminotransferase 34 U/L (6-35); Albumin Level 2.1 g/dL (3.5-5.1); Alkaline Phosphatase 306 U/L (38-126); Anion Gap 9 mmol/L (8-16); Aspartate Amino Transferase 48 U/L (14-36); Bilirubin,Total 0.8 mg/dL (0.2-1.3); Blood Urea Nitrogen 60 mg/dL (7-17); Calcium 8.6 mg/dL (8.4-10.2); Carbon Dioxide 15 mmol/L (22-30); Chloride 116 mmol/L (98-107); Estimated CRCL calculation 49 ml/min; Estimated Glomerular Filt Rate 42; Glucose 245 mg/dL (65-110); Potassium 3.6 mmol/L (3.4-5.0); Sodium 140 mmol/L (137-145)
--- NOTE | 2022-11-14 07:29 | PM.IMPN ---
Progress Note: A&P Assessment and Plan (1) Sepsis: Qualifiers: Acute respiratory failure type: with hypoxia Sepsis acute organ dysfunction status: with acute organ dysfunction Sepsis type: sepsis due to unspecified organism Severe sepsis acute organ dysfunction type: acute respiratory failure Severe sepsis shock status: without septic shock Qualified Code(s): A41.9 - Sepsis, unspecified organism; R65.20 - Severe sepsis without septic shock; J96.01 - Acute respiratory failure with hypoxia Code(s): A41.9 - Sepsis, unspecified organism Status: Acute Assessment and Plan: IV fluid resuscitation Monitor lactic acid levels Repeat CBC CMP WBC count 26.0 alkaline phosphatase 306 temp 36.0? albumin 2.1 chest x-ray shows extensive pneumonia right Two sets of Blood cultures urine cultures pending C-reactive protein, procalcitonin level. IV antibiotics Flagyl, vanco, cefepime Consulted ICU for possible transfer if symptom gets worse Patient advice to quit smoking. Bronchodilators. 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 Watch for Hypoglycemia. BMI goal < 25 Sliding scale insulin New onset atrial fibrillation with rapid ventricular response. IV Lopressor. Monitor electrolytes. consult Cardiology Creatinine 1.3 And gentle hydration. Avoid nephrotoxic drugs. Monitor antihypertensive drugs Avoid NSAIDs. Routine CMP monitor GFR. Monitor electrolytes potassium levels. Potassium 3.6 Dose antibiotics depending on creatinine clearance History of rheumatoid arthritis and on immunosuppressive drugs will hold for right now (2) Acute hypokalemia: Code(s): E87.6 - Hypokalemia Status: Acute (3) Community acquired pneumonia: Code(s): J18.9 - Pneumonia, unspecified organism Status: Acute (4) Claudication of left lower extremity: Code(s): I73.9 - Peripheral vascular disease, unspecified Status: Acute (5) Type 2 diabetes mellitus with hyperglycemia, without long-term current use of insulin: Code(s): E11.65 - Type 2 diabetes mellitus with hyperglycemia Status: Acute Subjective Date/time seen: 11/14/22 07:29 Interval history: Patient not very responsive Exam Narrative: GENERAL: Well appearing in no acute distress. HEAD: Normocephalic, atraumatic. NECK: Supple. No adenopathy, no masses. RESPIRATORY: Airway patent, respirations nonlabored. Clear to auscultation bilaterally, no rales, rhonchi, wheezing. CARDIOVASCULAR: Regular rate and rhythm without murmurs, rubs, or gallops. Peripheral pulses 2+ and equal bilaterally. ABDOMINAL: Soft, nontender, nondistended, no hepatosplenomegaly. Normoactive BS. MUSCULOSKELETAL: no Epigastric and no hypochondrial tenderness SKIN: Warm, dry, cyanosis both lower extremities poor peripheral pulses NEURO: A&O X3. Moves all extremities PSYCHIATRIC: Appropriate mood and affect. Normal interaction. Objective Data Vital Signs Vital Signs: Vital Signs - 24 hr 11/13/22 08:00 11/13/22 08:00 11/13/22 10:23 Temperature 35.8 C L Pulse Rate 84 93 Respiratory Rate 24 H 23 H Blood Pressure 152/67 H Pulse Oximetry 96 93 Oxygen Delivery Nasal Cannula Oxygen Flow Rate 5 11/13/22 08:00 11/13/22 10:00 11/13/22 12:00 Temperature 36.6 C Pulse Rate 82 90 88 Respiratory Rate 24 H Blood Pressure 150/52 H Pulse Oximetry 96 Oxygen Delivery Oxygen Flow Rate 11/13/22 12:00 11/13/22 14:00 11/13/22 15:15 Temperature Pulse Rate 82 89 89 Respiratory Rate Blood Pressure Pulse Oximetry 97 Oxygen Delivery Nasal Cannula Oxygen Flow Rate 4 11/13/22 15:15 11/13/22 15:27 11/13/22 15:30 Temperature Pulse Rate 89 99 93 Respiratory Rate 24 H 22 H Blood Press
[2022-11-14 08:13] LABS: HDL Direct 8 mg/dL; Triglycerides 46 mg/dL (<150)
[2022-11-14 08:34] LABS: Glucose Point of Care 231 mg/dl (65-105)
[2022-11-14] MEDS: PANTOPRAZOLE SODIUM IV 40 MG VIAL IV PUSH ×2 (09:21→20:39)
[2022-11-14] MEDS: ENOXAPARIN 40 MG/0.4 ML SYRINGE SUB-Q (09:22)
--- NOTE | 2022-11-14 09:55 | PM.CNPUL ---
Assessment and Plan Assessment and plan (1) Sepsis: Qualifiers: Sepsis type: sepsis due to unspecified organism Sepsis acute organ dysfunction status: with acute organ dysfunction Severe sepsis acute organ dysfunction type: acute respiratory failure Acute respiratory failure type: with hypoxia Severe sepsis shock status: without septic shock Qualified Code(s): A41.9 - Sepsis, unspecified organism; R65.20 - Severe sepsis without septic shock; J96.01 - Acute respiratory failure with hypoxia Code(s): A41.9 - Sepsis, unspecified organism Status: Acute (2) Sepsis with acute hypoxic respiratory failure: Qualifiers: Sepsis type: sepsis due to unspecified organism Severe sepsis shock status: without septic shock Qualified Code(s): A41.9 - Sepsis, unspecified organism; R65.20 - Severe sepsis without septic shock; J96.01 - Acute respiratory failure with hypoxia Code(s): A41.9 - Sepsis, unspecified organism; R65.20 - Severe sepsis without septic shock; J96.01 - Acute respiratory failure with hypoxia Status: Acute (3) Pneumonia: Qualifiers: Pneumonia type: aspiration pneumonia Aspiration pneumonia type: due to vomit Laterality: bilateral Lung location: unspecified part of lung Qualified Code(s): J69.0 - Pneumonitis due to inhalation of food and vomit Code(s): J18.9 - Pneumonia, unspecified organism Status: Acute Assessment and Plan: this 62-year-old female with history of diabetes, history of rheumatoid arthritis, recent COVID-19 infection presented with acute mental status changes, weakness, tachypnea. . Diagnostic studies have shown severe community acquired pneumonia with large consolidation involving right lung and small infiltrates in the left lung as well. the patient has been treated with 3 antibiotics since admission to the hospital approximately 2 days ago. a patient continues to have a lethargy, leukocytosis but has been hemodynamically stable. On physical exam she has no evidence of nuchal rigidity. Plan: I have discontinued metronidazole and started the patient on levofloxacin IV. Continue with cefepime, vancomycin to cover severe community-acquired pneumonia. Patient has history of rheumatoid arthritis but has not received any immunosuppressive agents over the last year. She will need further workup for persistent lethargy. The patient should be evaluated for ICU transfer. (4) Leukocytosis: Code(s): D72.829 - Elevated white blood cell count, unspecified Status: Acute (5) Community acquired pneumonia: Code(s): J18.9 - Pneumonia, unspecified organism Status: Acute History of Present Illness History of Present Illness Consult date: 11/14/22 Chief complaint: Bilateral pneumonia, hypokalemia Narrative: this 62-year-old female presented with several day history of weakness and muscle aches. patient is currently confused, non communicating and this report is based on information obtained after reviewing the patient's chart and talking to the patient's daughter. According to the patient's daughter she was in her usual state health until approximately 5 days ago and when she has had decreased appetite and weakness. Over the ensuing days she had some diarrhea, felt hot and also vomited. The patient also had cough for approximately 1 week prior to this admission. One EMS arrived at the patient's home she was found to have oxyhemoglobin saturation at 80% on room air. In the emergency room the patient was found to be lethargic, complaining of being thirsty. Workup with chest imaging studies showed extensive right lung consolidation with air bronchogram and few patchy infiltrates in the left lung as well. She had no pleural effusions. The patient has been treated with 3 antibiotics including cefepime vancomycin and metronidazole. Currently the patient appears very confused, noncommunicative. she has been hemodynamically stable w
[2022-11-14 10:20] LABS: Hemoglobin A1C 6.1 % (<5.7)
[2022-11-14 10:56] LABS: CRP 24.6 mg/dL (<1.0)
[2022-11-14 10:58] LABS: Cholesterol < 50 mg/dL (0-200); LDL Cholesterol Direct < 30 mg/dL
[2022-11-14] MEDS: POTASSIUM CHLORIDE INJ 40 MEQ in SODIUM CHLORIDE 0.9% IV 500 ML 130 MEQ IVPB (12:03)
[2022-11-14] MEDS: INSULIN ASPART (*BKC) 100 UNITS/ML SUB-Q (12:13)
[2022-11-14 12:14] LABS: Glucose Point of Care 212 mg/dl (65-105)
--- NOTE | 2022-11-14 12:22 | PC.NURSE ---
was showing student charting on this pt. accidentally clicked save instead of exiting out of the chart
--- NOTE | 2022-11-14 15:49 | PC.NURSE ---
On 11/14/22, the student, [Lilliana Leiva], provided care and completed [facility] documentation on this patient. I have reviewed the student's documentation and agree with the findings.
[2022-11-14] MEDS: DULoxetine HCL 60 MG CAPSULE.DR PO (16:58)
[2022-11-14 17:23] LABS: Glucose Point of Care 151 mg/dl (65-105)
[2022-11-14 23:27] LABS: Glucose Point of Care 203 mg/dl (65-105)
[2022-11-15] VITALS (31 sets, daily range): BP systolic 119–178; BP diastolic 52–119; PULSE 88–114; RESP 16–24; TEMP 36.3–37.3; O2SAT 87–99
[2022-11-15] MEDS: SODIUM CHLORIDE 0.9% IV 1,000 ML 150 ML IV CONT ×2 (02:14→09:08)
[2022-11-15] MEDS: MORPHINE SULFATE (*CRX) 2 MG/ML INJ IV PUSH (02:15)
[2022-11-15] MEDS: LEVALBUTEROL NEB 1.25 MG/3 ML 0.63 MG INHALATION ×4 (02:48→20:57)
[2022-11-15] MEDS: IPRATROPIUM BR 0.02% INH SOLN 0.5 MG/2.5 ML VIAL INHALATION ×4 (02:48→20:59)
[2022-11-15 06:14] LABS: Glucose Point of Care 197 mg/dl (65-105)
[2022-11-15 06:42] LABS: Hematocrit 31.6 % (37.0-47.0); Hemoglobin 10.7 g/dL (12.0-15.0); Mean Corpuscular HGB Conc 33.9 g/dl (32-36); Mean Corpuscular Hemoglobin 28.9 pg (26-34); Mean Corpuscular Volume 85.4 fl (80-100); Mean Platelet Volume 12.7 fl (7.4-10.4); Platelet Count Result 158 k/mm3 (150-375); Red Cell Distribution Width 17.7 % (11.5-14.5); White Blood Count 26.3 K/mm3 (4.5-10.0)
[2022-11-15 07:03] LABS: Alanine Aminotransferase 34 U/L (6-35); Albumin Level 2.3 g/dL (3.5-5.1); Alkaline Phosphatase 422 U/L (38-126); Anion Gap 8 mmol/L (8-16); Aspartate Amino Transferase 43 U/L (14-36); Bilirubin,Total 0.7 mg/dL (0.2-1.3); Blood Urea Nitrogen 66 mg/dL (7-17); Calcium 9.1 mg/dL (8.4-10.2); Carbon Dioxide 13 mmol/L (22-30); Chloride 119 mmol/L (98-107); Estimated CRCL calculation 41 ml/min; Estimated Glomerular Filt Rate 33; Glucose 216 mg/dL (65-110); Potassium 3.7 mmol/L (3.4-5.0); Sodium 140 mmol/L (137-145)
--- NOTE | 2022-11-15 08:23 | PM.IMPN ---
Progress Note: A&P Assessment and Plan (1) Sepsis: Qualifiers: Sepsis type: sepsis due to unspecified organism Sepsis acute organ dysfunction status: with acute organ dysfunction Severe sepsis acute organ dysfunction type: acute respiratory failure Acute respiratory failure type: with hypoxia Severe sepsis shock status: without septic shock Qualified Code(s): A41.9 - Sepsis, unspecified organism; R65.20 - Severe sepsis without septic shock; J96.01 - Acute respiratory failure with hypoxia Code(s): A41.9 - Sepsis, unspecified organism Status: Acute Assessment and Plan: IV fluid resuscitation Monitor lactic acid levels Repeat CBC CMP WBC count 26.0 alkaline phosphatase 422 liver ultrasound GI consult ? albumin 2.1 repeat x-ray shows extensive pneumonia right Two sets of Blood cultures urine cultures pending IV antibiotics Flagyl, vanco, cefepime Consulted ICU for possible transfer if symptom gets worse Patient advice to quit smoking. Bronchodilators. Spirometry 2D echo AFib with EF of 65% Evaluation for home O2 if saturations less than 88% on room air Follow-up with primary care and manager of corporate routine HBA1c ( goal <7.0%) , Optimize YOLY-inhibitor and statin Routine glucose monitoring. Watch for Hypoglycemia. BMI goal < 25 Sliding scale insulin New onset atrial fibrillation with rapid ventricular response. IV Lopressor. Monitor electrolytes. consult Cardiology blood pressure 172/72 restart losartan and also had IV hydralazine Creatinine 1.6 worse since yesterday Avoid nephrotoxic drugs. Monitor antihypertensive drugs Avoid NSAIDs. Routine CMP monitor GFR. Monitor electrolytes potassium levels. Potassium 3.7 Dose antibiotics depending on creatinine clearance will start sertraline and Cymbalta as home meds History of rheumatoid arthritis and on immunosuppressive drugs will hold for right now (2) Acute hypokalemia: Code(s): E87.6 - Hypokalemia Status: Acute (3) Community acquired pneumonia: Code(s): J18.9 - Pneumonia, unspecified organism Status: Acute (4) Claudication of left lower extremity: Code(s): I73.9 - Peripheral vascular disease, unspecified Status: Acute (5) Type 2 diabetes mellitus with hyperglycemia, without long-term current use of insulin: Code(s): E11.65 - Type 2 diabetes mellitus with hyperglycemia Status: Acute Subjective Date/time seen: 11/15/22 08:23 Interval history: patient much more alert today eating better still kind of moaning and groaning denied any history of chest pain shortness of breath patient was noted to have blood pressure of 170/72 this morning Exam Narrative: GENERAL: Well appearing, well-nourished, non-toxic, in no acute distress. HEAD: Normocephalic, atraumatic. NECK: Supple. No adenopathy, no masses. RESPIRATORY: Airway patent, respirations nonlabored. rales, rhonchi, wheezing. bilaterally right more than left CARDIOVASCULAR: Regular rate and rhythm without murmurs, rubs, or gallops. Peripheral pulses 2+ and equal bilaterally. ABDOMINAL: Soft, nontender, nondistended, no hepatosplenomegaly. Normoactive BS. MUSCULOSKELETAL: no Epigastric and no hypochondrial tenderness SKIN: Warm, dry, normal color. No rashes. NEURO: A&O X3. Moves all extremities PSYCHIATRIC: Appropriate mood and affect. Normal interaction. Objective Data Vital Signs Vital Signs: Vital Signs - 24 hr 11/14/22 10:00 11/14/22 11:17 11/14/22 12:02 Temperature 36.1 C L Pulse Rate 98 Respiratory Rate 16 Blood Pressure 126/38 L 135/52 L Pulse Oximetry 98 Oxygen Delivery Room Air Oxygen Flow Rate 11/14/22 13:08 11/14/22 12:30 11/14/22 16:00 Temperature 36.6 C Pulse Rate 92 98 96 Respiratory Rate 22 H 16 16 Blood Pressure 152/64 H Pulse Oximetry 98 95 Oxygen Delivery Room Air Oxygen Flow Rate 11/14/22 16:00 11/14/22 17:30 11/14/22 10:00 Temperature 36
[2022-11-15] MEDS: LORazepam INJ (*CRX) 2 MG/ML VIAL 1 MG IV PUSH (08:57)
[2022-11-15] MEDS: ENOXAPARIN 40 MG/0.4 ML SYRINGE SUB-Q (08:59)
[2022-11-15] MEDS: INSULIN ASPART (*BKC) 100 UNITS/ML SUB-Q ×5 (09:08→21:17)
--- NOTE | 2022-11-15 09:37 | PM.EVENT ---
Event Note Event Note Event Note: Patient's chart was reviewed patient is hyperchloremic and bicarb is dropping. Will change fluids to half-normal saline. Patient is developing acute kidney injury. Will hold losartan.
[2022-11-15] MEDS: SODIUM CHLORIDE 0.45% 1,000 ML 100 ML IV CONT (10:56)
[2022-11-15] MEDS: PANTOPRAZOLE SODIUM IV 40 MG VIAL IV PUSH ×2 (10:56→21:17)
[2022-11-15] MEDS: POTASSIUM CHLORIDE INJ 40 MEQ in SODIUM CHLORIDE 0.9% IV 500 ML 130 MEQ IVPB (10:59)
--- NOTE | 2022-11-15 11:38 | PM.PNPUL ---
Progress Note: A&P Assessment and Plan (1) Pneumonia: Qualifiers: Pneumonia type: aspiration pneumonia Aspiration pneumonia type: due to vomit Laterality: bilateral Lung location: unspecified part of lung Qualified Code(s): J69.0 - Pneumonitis due to inhalation of food and vomit Code(s): J18.9 - Pneumonia, unspecified organism Status: Acute Assessment and Plan: ? ?this 62-year-old female with history of diabetes, history of rheumatoid arthritis, recent COVID-19 infection presented with acute mental status changes,? weakness, tachypnea. .? Diagnostic studies have shown severe community acquired pneumonia with large consolidation involving right lung and small infiltrates in the left lung as well. ? the patient has been treated with 3 antibiotics since admission to the hospital approximately 2 days ago.? patient's respiratory status has been essentially unchanged over the last 24 hours despite treatment with 3 antibiotics. She continues to have acute mental status changes and marked leukocytosis. Chest x-ray today is essentially unchanged. I am concerned about the persistent acute mental status changes despite broad-spectrum antibiotics. ? On physical exam she has no evidence of nuchal? rigidity. Pupils are equal reactive to light bilaterally. The patient is very agitated , incoherent. Bed sitter at bedside. Plan: I have discontinued cefepime and started the patient on high-dose ceftriaxone for better METEOROLOGICAL ENGINEER coverage. I am very concerned about the patient's mental status. I would suggest transfer the patient to the intensive care unit and consider lumbar puncture to exclude METEOROLOGICAL ENGINEER infection. Patient has not had brain CT. Case was discussed with the hospitalist. (2) Sepsis with acute hypoxic respiratory failure: Qualifiers: Sepsis type: sepsis due to unspecified organism Severe sepsis shock status: without septic shock Qualified Code(s): A41.9 - Sepsis, unspecified organism; R65.20 - Severe sepsis without septic shock; J96.01 - Acute respiratory failure with hypoxia Code(s): A41.9 - Sepsis, unspecified organism; R65.20 - Severe sepsis without septic shock; J96.01 - Acute respiratory failure with hypoxia Status: Acute (3) Sepsis: Qualifiers: Sepsis type: sepsis due to unspecified organism Sepsis acute organ dysfunction status: with acute organ dysfunction Severe sepsis acute organ dysfunction type: acute respiratory failure Acute respiratory failure type: with hypoxia Severe sepsis shock status: without septic shock Qualified Code(s): A41.9 - Sepsis, unspecified organism; R65.20 - Severe sepsis without septic shock; J96.01 - Acute respiratory failure with hypoxia Code(s): A41.9 - Sepsis, unspecified organism Status: Acute (4) Claudication of left lower extremity: Code(s): I73.9 - Peripheral vascular disease, unspecified Status: Acute Subjective Date/time seen: 11/15/22 11:38 Interval history: patient appears more awake but remains confused. Bed sitter watching patient. FiO2 lower today. The patient remains hemodynamically stable. Review of Systems Review of Systems: All systems reviewed & are unremarkable except as noted in HPI and below ( In HPI and below) Exam Narrative: GENERAL APPEARANCE: Well developed, well nourished, confused not communicating. SKIN: Inspection of the skin reveals no rashes, ulcerations or petechiae. HEENT: Sclerae anicteric and conjunctivae pink and moist. Pupils dilated but reacting to light bilaterally. NECK: Supple. There was no thyroid enlargement, and no tenderness, or masses were felt. LUNGS: dullness to percussion with decreased breath sounds right chest posteriorly, few rhonchi left anterior chest CARDIAC: tachycardia normal heart sounds no murmurs ABDOMEN: soft mild tenderness to palpation bowel sounds present no organomegaly LYMPH NODES: No lymphadenopathy was appreciated in the neck EXTREMITIE
[2022-11-15 12:05] LABS: Glucose Point of Care 270 mg/dl (65-105)
--- NOTE | 2022-11-15 12:49 | WPDCNINT ---
Assessment and Plan Assessment and plan (1) Sepsis: Qualifiers: Acute respiratory failure type: with hypoxia Sepsis acute organ dysfunction status: with acute organ dysfunction Sepsis type: sepsis due to unspecified organism Severe sepsis acute organ dysfunction type: acute respiratory failure Severe sepsis shock status: without septic shock Qualified Code(s): A41.9 - Sepsis, unspecified organism; R65.20 - Severe sepsis without septic shock; J96.01 - Acute respiratory failure with hypoxia Code(s): A41.9 - Sepsis, unspecified organism Status: Acute Assessment and Plan: Secondary to community-acquired pneumonia Extensive, dense consolidation in the right lung, with scattered focal areas of consolidation left lung. Findings are compatible with extensive pneumonia. Underlying neoplastic lesion is difficult to completely exclude, though no distinct mass effect clearly identified on the opacified pulmonary arterial tree. Mild lymphadenopathy, presumably reactive Blood cultures done on 11/12 and 11/13 are negative till now She continues to have elevated WBC count although she is afebrile Her lactic acid level was normal and she has maintain adequate blood pressure since admission Patient was evaluated by Pulmonary Service She was started on vancomycin cefepime and Levaquin. Cefepime was changed to Rocephin by clear coat sprayer Continue empiric antibiotics as above Urine pneumococcal and Legionella antigen are pending Mycoplasma antibody is pending Patient currently on nasal cannula Continue Bronchodilators. Incentive spirometry (2) Community acquired pneumonia: Code(s): J18.9 - Pneumonia, unspecified organism Status: Acute Assessment and Plan: See above (3) Acute hypokalemia: Code(s): E87.6 - Hypokalemia Status: Acute Assessment and Plan: Patient currently receiving potassium replacement Monitor (4) Type 2 diabetes mellitus with hyperglycemia, without long-term current use of insulin: Code(s): E11.65 - Type 2 diabetes mellitus with hyperglycemia Status: Acute Assessment and Plan: Change sliding scale to every 4 hours Will add Lantus (5) Pneumonia: Qualifiers: Aspiration pneumonia type: due to vomit Laterality: bilateral Lung location: unspecified part of lung Pneumonia type: aspiration pneumonia Qualified Code(s): J69.0 - Pneumonitis due to inhalation of food and vomit Code(s): J18.9 - Pneumonia, unspecified organism Status: Acute Assessment and Plan: See above (6) Acidosis: Code(s): E87.20 - Acidosis, unspecified Status: Acute Assessment and Plan: Patient gradually getting more acidotic secondary to kidney injury and hyperchloremia from normal saline Change IV fluids to IV bicarb in sterile water Monitor (7) Acute kidney injury: Code(s): N17.9 - Acute kidney failure, unspecified Status: Acute Assessment and Plan: Patient does have history of chronic kidney disease and presented with creatinine of 1.2 Creatinine increased to 1.6. Patient did receive IV contrast for CTA Patient also on NSAIDs at home Continue IV fluids. Change to IV bicarb Check CK level CT abdomen pelvis done on admission did not show any hydronephrosis or renal stone Check urine electrolytes Monitor urine output electrolytes and creatinine (8) Abdominal tenderness in left flank: Code(s): R10.819 - Abdominal tenderness, unspecified site Status: Acute Assessment and Plan: On exam patient exhibited mild tenderness in left lower quadrant although exam was unremarkable as patient was resisting exam. She had CT abdomen pelvis done outpatient which was negative She has not had any diarrhea Due to persistent elevated WBC count I will repeat CT scan without contrast (9) Encephalopathy: Code(s): G93.40 - Encephalopathy, unspecified Status: Acute Assessment and Plan: Yasmany
[2022-11-15 13:16] LABS: Creatine Kinase 28 U/L (30-135)
--- NOTE | 2022-11-15 13:18 | ECG_ITS ---
Measurements Intervals [place] Rate: 106 P: 67 UT: 143 QRS: 60 QRSD: 106 T: 27 QT: 336 QTc: 448 Interpretive Statements SINUS TACHYCARDIA ATRIAL COUPLET AND VENTRICULAR PREMATURE COMPLEXES NONSPECIFIC T-WAVE ABNORMALITY- INFERIOR LEADS BASELINE ARTIFACT- I, V6 ABNORMAL ECG COMPARED TO ECG 11/13/2022 06:53:17 SINUS TACHYCARDIA NOW PRESENT Electronically Signed On 11-15-2022 17:22:29 BILINGUAL INSTRUCTOR by Javier Luong D.O.
--- NOTE | 2022-11-15 13:56 | PC.NURSE ---
Bedside report given to KADIE Brizuela with the ICU department at 1355. Patient moved to ICU room 4.
[2022-11-15 13:58] LABS: Glucose Point of Care 213 mg/dl (65-105)
[2022-11-15] MEDS: SODIUM BICARBONATE 8.4% 100 MEQ in WATER, STERILE FOR INJECTION 1,000 ML IV CONT (13:59)
[2022-11-15] MEDS: INSULIN GLARGINE (*BKC) 100 UNITS/ML 15 UNITS SUB-Q (14:04)
[2022-11-15 14:26] LABS: Ammonia < 9 umol/L (9-30)
[2022-11-15] MEDS: dexmedeTOMIDine 400 MCG/100 ML 400 MCG/100 ML BAG IV CONT (14:30)
[2022-11-15] MEDS: SODIUM BICARBONATE 8.4% 50 MEQ/50 ML SYRINGE IV PUSH (14:32)
[2022-11-15 14:44] LABS: Vancomycin Trough 22.5 ug/mL (10.0-20.0)
[2022-11-15 17:58] LABS: Glucose Point of Care 206 mg/dl (65-105)
[2022-11-15 18:14] LABS: Glucose Point of Care 212 mg/dl (65-105)
[2022-11-15 18:43] LABS: Creatinine Urine 47.7 mg/dL
[2022-11-15 18:46] LABS: Sodium Urine Random 28 meq/L
[2022-11-15 19:00] LABS: Free T4 Free Thyroxine Reflex 0.78 ng/dL (0.78-2.19)
[2022-11-15 20:36] LABS: Pneumococcal Antigen Urine Detected (Not Detected)
[2022-11-15] MEDS: cefTRIAXone 2 GM in SODIUM CHLORIDE 0.9% IV 100 ML 200 ML IVPB (21:16)
[2022-11-15] MEDS: dexmedeTOMIDine 400 MCG/100 ML 400 MCG/100 ML BAG 12.44 MCG IV CONT (21:26)
[2022-11-15 21:27] LABS: Glucose Point of Care 220 mg/dl (65-105)
[2022-11-15 21:47] LABS: Total Triiodothyronine (T3) 0.66 NG/ML (0.97-1.69)
[2022-11-16] VITALS (27 sets, daily range): BP systolic 104–173; BP diastolic 48–87; PULSE 63–105; RESP 17–24; TEMP 36.7–37.6; O2SAT 93–100
[2022-11-16] MEDS: INSULIN ASPART (*BKC) 100 UNITS/ML SUB-Q
[2022-11-16 00:39] LABS: Glucose Point of Care 257 mg/dl (65-105)
[2022-11-16 03:34] LABS: Glucose Point of Care 173 mg/dl (65-105)
[2022-11-16] MEDS: dexmedeTOMIDine 400 MCG/100 ML 400 MCG/100 ML BAG 17.41 MCG IV CONT ×2 (04:16→10:37)
[2022-11-16] MEDS: IPRATROPIUM BR 0.02% INH SOLN 0.5 MG/2.5 ML VIAL INHALATION ×3 (05:50→14:00)
[2022-11-16] MEDS: LEVALBUTEROL NEB 1.25 MG/3 ML 0.63 MG INHALATION ×3 (05:50→14:01)
[2022-11-16 06:42] LABS: Hematocrit 33.2 % (37.0-47.0); Mean Corpuscular HGB Conc 33.1 g/dl (32-36); Mean Corpuscular Hemoglobin 29.4 pg (26-34); Mean Corpuscular Volume 88.8 fl (80-100); Mean Platelet Volume 11.7 fl (7.4-10.4); Platelet Count Result 152 k/mm3 (150-375); Red Blood Count 3.74 M/mm3 (4.2-5.4); Red Cell Distribution Width 18.2 % (11.5-14.5); White Blood Count 25.6 K/mm3 (4.5-10.0)
[2022-11-16 06:54] LABS: Alanine Aminotransferase 30 U/L (6-35); Alkaline Phosphatase 480 U/L (38-126); Anion Gap 8 mmol/L (8-16); Aspartate Amino Transferase 36 U/L (14-36); Bilirubin,Total 0.7 mg/dL (0.2-1.3); Blood Urea Nitrogen 67 mg/dL (7-17); Calcium 9.1 mg/dL (8.4-10.2); Carbon Dioxide 15 mmol/L (22-30); Chloride 120 mmol/L (98-107); Estimated CRCL calculation 45 ml/min; Estimated Glomerular Filt Rate 35; Glucose 180 mg/dL (65-110); Potassium 3.2 mmol/L (3.4-5.0); Sodium 143 mmol/L (137-145)
[2022-11-16] MEDS: SODIUM BICARBONATE 8.4% 100 MEQ in WATER, STERILE FOR INJECTION 1,000 ML 75 MEQ IV CONT (07:37)
[2022-11-16] MEDS: POTASSIUM CHLORIDE INJ 40 MEQ in SODIUM CHLORIDE 0.9% IV 500 ML 130 MEQ IVPB (09:20)
[2022-11-16] MEDS: cefTRIAXone 2 GM in SODIUM CHLORIDE 0.9% IV 100 ML 200 ML IVPB ×2 (09:20→20:35)
[2022-11-16] MEDS: PANTOPRAZOLE SODIUM IV 40 MG VIAL IV PUSH ×2 (09:21→20:36)
[2022-11-16] MEDS: SODIUM BICARBONATE 8.4% 50 MEQ/50 ML SYRINGE IV PUSH (09:22)
--- NOTE | 2022-11-16 09:23 | WPDINTPN ---
Progress Note: A&P Assessment and Plan (1) Sepsis: Qualifiers: Sepsis type: sepsis due to unspecified organism Sepsis acute organ dysfunction status: with acute organ dysfunction Severe sepsis acute organ dysfunction type: acute respiratory failure Acute respiratory failure type: with hypoxia Severe sepsis shock status: without septic shock Qualified Code(s): A41.9 - Sepsis, unspecified organism; R65.20 - Severe sepsis without septic shock; J96.01 - Acute respiratory failure with hypoxia Code(s): A41.9 - Sepsis, unspecified organism Status: Acute Assessment and Plan: Secondary to community-acquired pneumonia Extensive, dense consolidation in the right lung, with scattered focal areas of consolidation left lung. Findings are compatible with extensive pneumonia. Underlying neoplastic lesion is difficult to completely exclude, though no distinct mass effect clearly identified on the opacified pulmonary arterial tree. Mild lymphadenopathy, presumably reactive Blood cultures done on 11/12 and 11/13 are negative till now Urine pneumococcal antigen is positive suggestive of streptococcal pneumonia She continues to have elevated WBC count although she is afebrile Her lactic acid level was normal and she has maintain adequate blood pressure since admission Patient is being followed by Pulmonary Service She was started on vancomycin cefepime and Levaquin. Cefepime was changed to Rocephin by lamination inspector Continue these antibiotics for now Continue empiric antibiotics as above Urine Legionella antigen are pending Mycoplasma antibody is pending Patient currently on room air Continue Bronchodilators. Incentive spirometry (2) Community acquired pneumonia: Code(s): J18.9 - Pneumonia, unspecified organism Status: Acute Assessment and Plan: See above (3) Acute hypokalemia: Code(s): E87.6 - Hypokalemia Status: Acute Assessment and Plan: Replace low potassium (4) Type 2 diabetes mellitus with hyperglycemia, without long-term current use of insulin: Code(s): E11.65 - Type 2 diabetes mellitus with hyperglycemia Status: Acute Assessment and Plan: Change sliding scale to every 4 hours Continue Lantus Trial of clear liquid (5) Pneumonia: Qualifiers: Pneumonia type: aspiration pneumonia Aspiration pneumonia type: due to vomit Laterality: bilateral Lung location: unspecified part of lung Qualified Code(s): J69.0 - Pneumonitis due to inhalation of food and vomit Code(s): J18.9 - Pneumonia, unspecified organism Status: Acute Assessment and Plan: See above (6) Acidosis: Code(s): E87.20 - Acidosis, unspecified Status: Acute Assessment and Plan: Patient gradually getting more acidotic secondary to kidney injury and hyperchloremia from normal saline Continue IV fluids to IV bicarb Will give 50 mEq of sodium bicarbonate Monitor (7) Acute kidney injury: Code(s): N17.9 - Acute kidney failure, unspecified Status: Acute Assessment and Plan: Patient does have history of chronic kidney disease and presented with creatinine of 1.2 Creatinine increased to 1.6. Patient did receive IV contrast for CTA Patient also on NSAIDs at home Continue IV fluids with bicarb Normal CK level CT abdomen pelvis done on admission did not show any hydronephrosis or renal stone urine electrolytes suggest prerenal Monitor urine output electrolytes and creatinine (8) Abdominal tenderness in left flank: Code(s): R10.819 - Abdominal tenderness, unspecified site Status: Acute Assessment and Plan: On exam patient exhibited mild tenderness in left lower quadrant although exam was unremarkable as patient was resisting exam. She had CT abdomen pelvis done on presentation which was negative 11/[address] abdomen pelvis showed Wall thickening of the descending and sigmoid colon, consistent with interstitial ed
[2022-11-16] MEDS: SODIUM BICARBONATE TAB 650 MG TABLET PO ×3 (09:33→17:23)
[2022-11-16] MEDS: POTASSIUM CHLORIDE 20 MEQ PACKET (FOR LIQUID) 40 MEQ FEED TUBE (09:33)
[2022-11-16] MEDS: LIDOCAINE HCL 1% PF INJ 5 ML VIAL INFILTRATE (10:39)
[2022-11-16 10:47] LABS: Glucose Point of Care 168 mg/dl (65-105)
[2022-11-16] MEDS: LEVOTHYROXINE SODIUM INJ 100 MCG/5 ML VIAL 25 MCG IV PUSH (10:47)
[2022-11-16] MEDS: INSULIN GLARGINE (*BKC) 100 UNITS/ML 10 UNITS SUB-Q (10:47)
--- NOTE | 2022-11-16 11:03 | PM.PNPUL ---
Progress Note: A&P Assessment and Plan (1) Pneumonia: Qualifiers: Pneumonia type: aspiration pneumonia Aspiration pneumonia type: due to vomit Laterality: bilateral Lung location: unspecified part of lung Qualified Code(s): J69.0 - Pneumonitis due to inhalation of food and vomit Code(s): J18.9 - Pneumonia, unspecified organism Status: Acute Assessment and Plan: ? ?this 62-year-old female with history of diabetes, history of rheumatoid arthritis, recent COVID-19 infection presented with acute mental status changes,? weakness, tachypnea. .? Diagnostic studies have shown severe community acquired pneumonia with large consolidation involving right lung and small infiltrates in the left lung as well. in view of the positive streptococcal antigen in the urine this fits with severe streptococcal pneumonia.? the patient has been treated with 3 antibiotics since admission to the hospital approximately 4 days ago.? MRSA screen negative. overall the patient history in conjunction with a diagnostic studies suggest severe community-acquired pneumococcal pneumonia. acute mental status changes persist despite treatment with 3 antibiotics. Patient has no evidence of nuchal rigidity on physical exam and head CT was unremarkable. I would continue with current antibiotic regimen and consider LP. (2) Sepsis with acute hypoxic respiratory failure: Qualifiers: Sepsis type: sepsis due to unspecified organism Severe sepsis shock status: without septic shock Qualified Code(s): A41.9 - Sepsis, unspecified organism; R65.20 - Severe sepsis without septic shock; J96.01 - Acute respiratory failure with hypoxia Code(s): A41.9 - Sepsis, unspecified organism; R65.20 - Severe sepsis without septic shock; J96.01 - Acute respiratory failure with hypoxia Status: Acute (3) Sepsis: Qualifiers: Sepsis type: sepsis due to unspecified organism Sepsis acute organ dysfunction status: with acute organ dysfunction Severe sepsis acute organ dysfunction type: acute respiratory failure Acute respiratory failure type: with hypoxia Severe sepsis shock status: without septic shock Qualified Code(s): A41.9 - Sepsis, unspecified organism; R65.20 - Severe sepsis without septic shock; J96.01 - Acute respiratory failure with hypoxia Code(s): A41.9 - Sepsis, unspecified organism Status: Acute (4) Claudication of left lower extremity: Code(s): I73.9 - Peripheral vascular disease, unspecified Status: Acute Subjective Date/time seen: 11/16/22 11:03 Interval history: respiratory status essentially unchanged. The patient is in the intensive care unit. She remains confused. Still on supplemental oxygen via nasal cannula. Urine positive for streptococcal antigen. Hemodynamically stable in the intensive care unit. Review of Systems Review of Systems: ROS unobtainable: Yes unobtainable due to medical condition Exam Narrative: GENERAL APPEARANCE: Well developed, well nourished, confused not communicating. SKIN: Inspection of the skin reveals no rashes, ulcerations or petechiae. HEENT: Sclerae anicteric and conjunctivae pink and moist. Pupils dilated but reacting to light bilaterally. NECK: Supple. There was no thyroid enlargement, and no tenderness, or masses were felt. LUNGS: dullness to percussion with decreased breath sounds right chest posteriorly, few rhonchi left anterior chest CARDIAC: tachycardia normal heart sounds no murmurs ABDOMEN: soft mild tenderness to palpation bowel sounds present no organomegaly LYMPH NODES: No lymphadenopathy was appreciated in the neck EXTREMITIES: No cyanosis, clubbing. cyanotic toes bilaterally NEUROLOGIC: patient awake, moving all extremities but not communicating. Objective Data Vital Signs Vital Signs: Vital Signs - 24 hr 11/15/22 11:21 11/15/22 12:18 11/15/22 12:00 Temperature 37.3 C Pulse Rate 114 H 113 H Respiratory Rate
[2022-11-16 13:20] LABS: Glucose Point of Care 159 mg/dl (65-105)
[2022-11-16] MEDS: CENTRAL LINE FLUSH 10 ML IV PUSH ×2 (13:43→20:37)
[2022-11-16] MEDS: dexmedeTOMIDine 400 MCG/100 ML 400 MCG/100 ML BAG 19.9 MCG IV CONT (17:22)
[2022-11-16 17:28] LABS: Glucose Point of Care 161 mg/dl (65-105)
[2022-11-16] MEDS: MINERAL OIL/WHITE PETROLATUM OINTMENT 1 APPLIC EACH EYE (20:36)
[2022-11-16 20:47] LABS: Glucose Point of Care 166 mg/dl (65-105)
[2022-11-16 22:05] LABS: Legionella pneumophila Ag Ur Not Detected (Not Detected)
[2022-11-16] MEDS: dexmedeTOMIDine 400 MCG/100 ML 400 MCG/100 ML BAG 24.88 MCG IV CONT (22:33)
[2022-11-17] VITALS (25 sets, daily range): BP systolic 153–188; BP diastolic 60–86; PULSE 69–110; RESP 18–28; TEMP 36.6–37.6; O2SAT 90–100
[2022-11-17] MEDS: SODIUM BICARBONATE 8.4% 100 MEQ in WATER, STERILE FOR INJECTION 1,000 ML 75 MEQ IV CONT (01:29)
[2022-11-17 01:36] LABS: Glucose Point of Care 182 mg/dl (65-105)
[2022-11-17] MEDS: dexmedeTOMIDine 400 MCG/100 ML 400 MCG/100 ML BAG 24.88 MCG IV CONT (02:13)
[2022-11-17 04:47] LABS: Hematocrit 27.3 % (37.0-47.0); Hemoglobin 9.4 g/dL (12.0-15.0); Mean Corpuscular HGB Conc 34.4 g/dl (32-36); Mean Corpuscular Hemoglobin 28.5 pg (26-34); Mean Corpuscular Volume 82.7 fl (80-100); Mean Platelet Volume 11.9 fl (7.4-10.4); Platelet Count Result 168 k/mm3 (150-375); White Blood Count 20.3 K/mm3 (4.5-10.0)
[2022-11-17] MEDS: CENTRAL LINE FLUSH 10 ML IV PUSH ×3 (04:49→20:56)
[2022-11-17 04:54] LABS: Alanine Aminotransferase 27 U/L (6-35); Albumin Level 2.1 g/dL (3.5-5.1); Alkaline Phosphatase 355 U/L (38-126); Anion Gap 4 mmol/L (8-16); Aspartate Amino Transferase 37 U/L (14-36); Bilirubin,Total 0.6 mg/dL (0.2-1.3); Blood Urea Nitrogen 61 mg/dL (7-17); Carbon Dioxide 21 mmol/L (22-30); Chloride 118 mmol/L (98-107); Estimated CRCL calculation 47 ml/min; Estimated Glomerular Filt Rate 38; Glucose 215 mg/dL (65-110); Magnesium 1.9 mg/dL (1.6-2.3); Potassium 3.2 mmol/L (3.4-5.0); Sodium 143 mmol/L (137-145)
[2022-11-17] MEDS: INSULIN ASPART (*BKC) 100 UNITS/ML SUB-Q (06:31)
[2022-11-17] MEDS: LEVOTHYROXINE SODIUM INJ 100 MCG/5 ML VIAL 25 MCG IV PUSH (06:31)
[2022-11-17] MEDS: dexmedeTOMIDine 400 MCG/100 ML 400 MCG/100 ML BAG 9.95 MCG IV CONT (06:47)
[2022-11-17] MEDS: IPRATROPIUM BR 0.02% INH SOLN 0.5 MG/2.5 ML VIAL INHALATION ×3 (07:48→19:47)
[2022-11-17] MEDS: LEVALBUTEROL NEB 1.25 MG/3 ML 0.63 MG INHALATION ×3 (07:48→19:48)
[2022-11-17] MEDS: KCL 20 MEQ/D5W 1,000 ML 1,000 ML 100 ML IV CONT (08:58)
[2022-11-17] MEDS: cefTRIAXone 2 GM in SODIUM CHLORIDE 0.9% IV 100 ML 200 ML IVPB ×2 (08:58→20:55)
--- NOTE | 2022-11-17 08:58 | WPDINTPN ---
Progress Note: A&P Assessment and Plan (1) Sepsis: Qualifiers: Acute respiratory failure type: with hypoxia Sepsis acute organ dysfunction status: with acute organ dysfunction Sepsis type: sepsis due to unspecified organism Severe sepsis acute organ dysfunction type: acute respiratory failure Severe sepsis shock status: without septic shock Qualified Code(s): A41.9 - Sepsis, unspecified organism; R65.20 - Severe sepsis without septic shock; J96.01 - Acute respiratory failure with hypoxia Code(s): A41.9 - Sepsis, unspecified organism Status: Acute Assessment and Plan: Secondary to streptococcal community-acquired pneumonia Extensive, dense consolidation in the right lung, with scattered focal areas of consolidation left lung. Findings are compatible with extensive pneumonia. Underlying neoplastic lesion is difficult to completely exclude, though no distinct mass effect clearly identified on the opacified pulmonary arterial tree. Mild lymphadenopathy, presumably reactive Blood cultures done on 11/12 and 11/13 are negative till now Urine pneumococcal antigen is positive suggestive of streptococcal pneumonia WBC is improving and she is afebrile Her lactic acid level was normal and she has maintain adequate blood pressure since admission Patient is being followed by Pulmonary Service She was started on vancomycin cefepime and Levaquin. Cefepime was changed to Rocephin by boiler repairman Will discontinue vancomycin and Levaquin and continue Rocephin Urine Legionella antigen was negative Mycoplasma antibody is pending Patient currently on room air Continue Bronchodilators. Incentive spirometry (2) Community acquired pneumonia: Code(s): J18.9 - Pneumonia, unspecified organism Status: Acute Assessment and Plan: See above (3) Acute hypokalemia: Code(s): E87.6 - Hypokalemia Status: Acute Assessment and Plan: Replace low potassium (4) Type 2 diabetes mellitus with hyperglycemia, without long-term current use of insulin: Code(s): E11.65 - Type 2 diabetes mellitus with hyperglycemia Status: Acute Assessment and Plan: Change sliding scale to every 4 hours Continue Lantus Advance diet (5) Pneumonia: Qualifiers: Aspiration pneumonia type: due to vomit Laterality: bilateral Lung location: unspecified part of lung Pneumonia type: aspiration pneumonia Qualified Code(s): J69.0 - Pneumonitis due to inhalation of food and vomit Code(s): J18.9 - Pneumonia, unspecified organism Status: Acute Assessment and Plan: See above (6) Acidosis: Code(s): E87.20 - Acidosis, unspecified Status: Acute Assessment and Plan: Patient had been gradually getting more acidotic secondary to kidney injury and hyperchloremia from normal saline She was started on IV fluids to IV bicarb Acidosis improved Continue p.o. bicarb but discontinue IV fluids the bicarbonate Monitor (7) Acute kidney injury: Code(s): N17.9 - Acute kidney failure, unspecified Status: Acute Assessment and Plan: Patient does have history of chronic kidney disease and presented with creatinine of 1.2 Creatinine increased to 1.6. Patient did receive IV contrast for CTA Patient also on NSAIDs at home She is on IV fluids with bicarb Normal CK level CT abdomen pelvis done on admission did not show any hydronephrosis or renal stone urine electrolytes suggest prerenal Monitor urine output electrolytes and creatinine Continue IV fluid (8) Abdominal tenderness in left flank: Code(s): R10.819 - Abdominal tenderness, unspecified site Status: Acute Assessment and Plan: On exam patient exhibited mild tenderness in left lower quadrant although exam was unremarkable as patient was resisting exam. She had CT abdomen pelvis done on presentation which was negative 11/[address] abdomen pelvis showed Wall thickening of the descending an
[2022-11-17] MEDS: POTASSIUM BICARBONATE 25 MEQ TABEF 50 MEQ PO (08:59)
[2022-11-17] MEDS: INSULIN GLARGINE (*BKC) 100 UNITS/ML 15 UNITS SUB-Q (09:01)
[2022-11-17] MEDS: PANTOPRAZOLE SODIUM IV 40 MG VIAL IV PUSH ×2 (09:03→20:56)
[2022-11-17] MEDS: ENOXAPARIN 40 MG/0.4 ML SYRINGE SUB-Q (09:03)
[2022-11-17] MEDS: DULoxetine HCL 60 MG CAPSULE.DR PO ×2 (09:03→17:19)
[2022-11-17] MEDS: SODIUM BICARBONATE TAB 650 MG TABLET PO ×3 (09:04→17:19)
[2022-11-17 10:28] LABS: IFOB Positive Control Positive; Immunochemical Fecal Occult Bl Positive (N)
--- NOTE | 2022-11-17 10:33 | PCNFU ---
Nutrition Follow-Up Complete: Inadequate energy intake related to diet order and appetite and intake as evidenced by clear liquid status and pt report Goal: Meet estimated needs - Goal not being met PO intake 75% of meals - Goal not being met Pt current nutrition is NPO. Nutrition recommendation: Advance diet as medically able. Last recorded weight is 101.5 kg. Bowel Motility: No BMs charted Labs Reviewed:Hgb 9.4, Hcy 27.3, Alb 2.1, K+ 3.2, BUN 61, Cre 1.4, Glu 215 Meds Noted: Skin: DTI L heel Additional Notes: Pt was moved to ICU and was more lethargic so is NPO. Refused dinner last night. New pressure area noted as above. Continue to monitor diet advancement and will order supplements, Good when diet is advanced if appropriate. Monitor for diet advancement, intake, tolerance, wt, labs. Follow up in 3 days.
[2022-11-17 11:04] LABS: Toxigenic C. Diff NEGATIVE (NEGATIVE)
[2022-11-17] MEDS: metroNIDAZOLE 500 MG/ISO 100ML 500 MG/100 ML BAG 100 MG IVPB ×2 (11:53→17:20)
[2022-11-17] MEDS: SERTRALINE HCL 50 MG TABLET PO (11:55)
[2022-11-17] MEDS: amLODIPine BESYLATE 5 MG TABLET PO (11:55)
[2022-11-17 12:03] LABS: Glucose Point of Care 120 mg/dl (65-105)
[2022-11-17] MEDS: METOPROLOL TARTRATE INJ 5 MG/5 ML VIAL IV PUSH (13:12)
[2022-11-17 13:29] LABS: Glucose Point of Care 188 mg/dl (65-105)
--- NOTE | 2022-11-17 13:44 | PM.PNPUL ---
Progress Note: A&P Assessment and Plan (1) Pneumonia: Qualifiers: Pneumonia type: aspiration pneumonia Aspiration pneumonia type: due to vomit Laterality: bilateral Lung location: unspecified part of lung Qualified Code(s): J69.0 - Pneumonitis due to inhalation of food and vomit Code(s): J18.9 - Pneumonia, unspecified organism Status: Acute Assessment and Plan: ? ?this 62-year-old female with history of diabetes, history of rheumatoid arthritis, recent COVID-19 infection presented with acute mental status changes,? weakness, tachypnea. ? Diagnostic studies have shown severe community acquired pneumonia with large consolidation involving right lung and small infiltrates in the left lung as well. in view of the positive streptococcal antigen in the urine this fits with severe streptococcal pneumonia.? the patient has been treated with 3 antibiotics since admission to the hospital approximately 5 days ago.? MRSA screen negative. she is currently off levofloxacin and off vancomycin. Respiratory and mental status status seem to be improving but leukocytosis persists. Chest x-ray done 2 days ago showed no pleural effusions. Plan: for this degree of severe community-acquired pneumonia related to strep pneumonia I would continue with 2 antibiotics i.e, ceftriaxone and respiratory fluoroquinolone or macrolide. Also monitor for development of pleural effusion as leukocytosis persists. will sign off, please call with any questions (2) Sepsis with acute hypoxic respiratory failure: Qualifiers: Sepsis type: sepsis due to unspecified organism Severe sepsis shock status: without septic shock Qualified Code(s): A41.9 - Sepsis, unspecified organism; R65.20 - Severe sepsis without septic shock; J96.01 - Acute respiratory failure with hypoxia Code(s): A41.9 - Sepsis, unspecified organism; R65.20 - Severe sepsis without septic shock; J96.01 - Acute respiratory failure with hypoxia Status: Acute (3) Sepsis: Qualifiers: Sepsis type: sepsis due to unspecified organism Sepsis acute organ dysfunction status: with acute organ dysfunction Severe sepsis acute organ dysfunction type: acute respiratory failure Acute respiratory failure type: with hypoxia Severe sepsis shock status: without septic shock Qualified Code(s): A41.9 - Sepsis, unspecified organism; R65.20 - Severe sepsis without septic shock; J96.01 - Acute respiratory failure with hypoxia Code(s): A41.9 - Sepsis, unspecified organism Status: Acute (4) Claudication of left lower extremity: Code(s): I73.9 - Peripheral vascular disease, unspecified Status: Acute Subjective Date/time seen: 11/17/22 13:44 Interval history: Patient doing better. Hemodynamically stable in the intensive care unit appears more alert, communicating with family members at bedside. no new respiratory symptoms remaining on supplemental oxygen. Underwent a brain MRI. Leukocytosis persists. Antibiotics were changed. Review of Systems Review of Systems: All systems reviewed & are unremarkable except as noted in HPI and below ( HPI and below) Exam Narrative: GENERAL APPEARANCE: Well developed, well nourished, appears alert, answering questions, cooperative SKIN: Inspection of the skin reveals no rashes, ulcerations or petechiae. HEENT: Sclerae anicteric and conjunctivae pink and moist. Pupils dilated but reacting to light bilaterally. NECK: Supple. There was no thyroid enlargement, and no tenderness, or masses were felt. LUNGS: dullness to percussion with decreased breath sounds right chest posteriorly. CARDIAC: normal heart sounds no murmurs ABDOMEN: soft mild tenderness to palpation bowel sounds present no organomegaly LYMPH NODES: No lymphadenopathy was appreciated in the neck EXTREMITIES: No cyanosis, clubbing. cyanotic toes bilaterally NEUROLOGIC: patient awake, moving all extremities but not communicati
[2022-11-17 15:50] LABS: Glucose Point of Care 172 mg/dl (65-105)
[2022-11-17] MEDS: hydrALAZINE HCL 25 MG TABLET PO (17:37)
[2022-11-17 20:21] LABS: Glucose Point of Care 187 mg/dl (65-105)
[2022-11-17] MEDS: LOSARTAN POTASSIUM 25 MG TABLET PO (21:31)
--- NOTE | 2022-11-17 21:50 | PC.NURSE ---
2114 Supriya GUSMAN informed of elevated BP. Orders received.
[2022-11-18] VITALS (39 sets, daily range): BP systolic 166–190; BP diastolic 63–89; PULSE 82–114; RESP 22–35; TEMP 36.5–37.3; O2SAT 91–99
[2022-11-18 00:20] LABS: Glucose Point of Care 284 mg/dl (65-105)
[2022-11-18] MEDS: INSULIN ASPART (*BKC) 100 UNITS/ML SUB-Q ×5 (00:30→20:55)
[2022-11-18] MEDS: IPRATROPIUM BR 0.02% INH SOLN 0.5 MG/2.5 ML VIAL INHALATION ×4 (02:01→19:49)
[2022-11-18] MEDS: LEVALBUTEROL NEB 1.25 MG/3 ML 0.63 MG INHALATION ×4 (02:01→19:49)
[2022-11-18] MEDS: metroNIDAZOLE 500 MG/ISO 100ML 500 MG/100 ML BAG 100 MG IVPB ×3 (02:18→17:14)
[2022-11-18 04:24] LABS: Glucose Point of Care 244 mg/dl (65-105)
[2022-11-18] MEDS: CENTRAL LINE FLUSH 10 ML IV PUSH ×3 (04:29→20:56)
[2022-11-18 05:10] LABS: Hematocrit 29.4 % (37.0-47.0); Hemoglobin 9.9 g/dL (12.0-15.0); Mean Corpuscular HGB Conc 33.7 g/dl (32-36); Mean Corpuscular Hemoglobin 28.4 pg (26-34); Mean Corpuscular Volume 84.2 fl (80-100); Mean Platelet Volume 11.7 fl (7.4-10.4); Platelet Count Result 239 k/mm3 (150-375); Red Blood Count 3.49 M/mm3 (4.2-5.4); Red Cell Distribution Width 17.2 % (11.5-14.5); White Blood Count 17.4 K/mm3 (4.5-10.0)
[2022-11-18 05:23] LABS: Alanine Aminotransferase 25 U/L (6-35); Albumin Level 2.2 g/dL (3.5-5.1); Alkaline Phosphatase 276 U/L (38-126); Anion Gap 5 mmol/L (8-16); Aspartate Amino Transferase 38 U/L (14-36); Bilirubin,Total 0.6 mg/dL (0.2-1.3); Blood Urea Nitrogen 42 mg/dL (7-17); Calcium 8.6 mg/dL (8.4-10.2); Carbon Dioxide 22 mmol/L (22-30); Chloride 113 mmol/L (98-107); Estimated CRCL calculation 65 ml/min; Estimated Glomerular Filt Rate 56; Glucose 291 mg/dL (65-110); Magnesium 1.5 mg/dL (1.6-2.3); Sodium 140 mmol/L (137-145)
[2022-11-18] MEDS: LEVOTHYROXINE SODIUM INJ 100 MCG/5 ML VIAL 25 MCG IV PUSH (05:58)
[2022-11-18] MEDS: hydrALAZINE HCL 25 MG TABLET PO ×2 (06:05→14:04)
[2022-11-18] MEDS: METOPROLOL TARTRATE INJ 5 MG/5 ML VIAL IV PUSH ×3 (08:03→16:15)
[2022-11-18] MEDS: PANTOPRAZOLE SODIUM IV 40 MG VIAL IV PUSH (08:06)
[2022-11-18] MEDS: amLODIPine BESYLATE 5 MG TABLET PO ×2 (08:07→10:33)
[2022-11-18] MEDS: ENOXAPARIN 40 MG/0.4 ML SYRINGE SUB-Q (08:07)
[2022-11-18] MEDS: DULoxetine HCL 60 MG CAPSULE.DR PO ×2 (08:07→16:19)
[2022-11-18] MEDS: SERTRALINE HCL 50 MG TABLET PO (08:11)
[2022-11-18] MEDS: SODIUM BICARBONATE TAB 650 MG TABLET PO ×3 (08:11→16:19)
[2022-11-18] MEDS: MINERAL OIL/WHITE PETROLATUM OINTMENT 1 APPLIC EACH EYE (08:11)
[2022-11-18] MEDS: LOSARTAN POTASSIUM 25 MG TABLET PO (08:12)
[2022-11-18] MEDS: cefTRIAXone 2 GM in SODIUM CHLORIDE 0.9% IV 100 ML 200 ML IVPB ×2 (08:21→20:54)
[2022-11-18 08:30] LABS: Glucose Point of Care 174 mg/dl (65-105)
[2022-11-18] MEDS: INSULIN GLARGINE (*BKC) 100 UNITS/ML 15 UNITS SUB-Q (08:34)
[2022-11-18] MEDS: ONDANSETRON INJ 4 MG/2 ML VIAL IV PUSH (09:23)
[2022-11-18] MEDS: MAGNESIUM SULF 2 GM/WATER 50ML 2 GM/50 ML BAG IVPB (09:24)
[2022-11-18] MEDS: SUCRALFATE SUSP 100 MG/ML 10 ML UDC 1000 MG PO ×4 (09:24→20:54)
[2022-11-18] MEDS: POTASSIUM BICARBONATE 25 MEQ TABEF 50 MEQ PO (10:32)
[2022-11-18] MEDS: METOPROLOL TARTRATE 25 MG TABLET PO ×2 (10:32→20:56)
[2022-11-18] MEDS: POTASSIUM CHLORIDE INJ 40 MEQ in DEXTROSE 5% IN WATER 500 ML 130 MEQ IVPB (10:33)
[2022-11-18 12:43] LABS: Glucose Point of Care 294 mg/dl (65-105)
--- NOTE | 2022-11-18 14:28 | PM.IMPN ---
Progress Note: A&P Assessment and Plan (1) Sepsis: Qualifiers: Sepsis type: sepsis due to unspecified organism Sepsis acute organ dysfunction status: with acute organ dysfunction Severe sepsis acute organ dysfunction type: acute respiratory failure Acute respiratory failure type: with hypoxia Severe sepsis shock status: without septic shock Qualified Code(s): A41.9 - Sepsis, unspecified organism; R65.20 - Severe sepsis without septic shock; J96.01 - Acute respiratory failure with hypoxia Code(s): A41.9 - Sepsis, unspecified organism Status: Acute Assessment and Plan: Secondary to streptococcal community-acquired pneumonia Extensive, dense consolidation in the right lung, with scattered focal areas of consolidation left lung. Findings are compatible with extensive pneumonia. Underlying neoplastic lesion is difficult to completely exclude, though no distinct mass effect clearly identified on the opacified pulmonary arterial tree. Mild lymphadenopathy, presumably reactive Blood cultures done on 11/12 and 11/13 are negative till now Urine pneumococcal antigen is positive suggestive of [place] [id number] pt is being treated with iv rocephin, flagyl pt weaning off oxygen improving slowly pt seen by pulmonology and icu signed off can transfer out of icu (2) Community acquired pneumonia: Code(s): J18.9 - Pneumonia, unspecified organism Status: Acute Assessment and Plan: See above (3) Acute hypokalemia: Code(s): E87.6 - Hypokalemia Status: Acute Assessment and Plan: Replace low potassium remains at 3 (4) Type 2 diabetes mellitus with hyperglycemia, without long-term current use of insulin: Code(s): E11.65 - Type 2 diabetes mellitus with hyperglycemia Status: Chronic Assessment and Plan: Change sliding scale to every 4 hours Continue Lantus Advance diet (5) Pneumonia: Qualifiers: Pneumonia type: aspiration pneumonia Aspiration pneumonia type: due to vomit Laterality: bilateral Lung location: unspecified part of lung Qualified Code(s): J69.0 - Pneumonitis due to inhalation of food and vomit Code(s): J18.9 - Pneumonia, unspecified organism Status: Acute Assessment and Plan: See above (6) Acidosis: Code(s): E87.20 - Acidosis, unspecified Status: Resolved Assessment and Plan: Patient had been gradually getting more acidotic secondary to kidney injury and hyperchloremia from normal saline She was started on IV fluids and IV bicarb Acidosis improved pt remains on p.o. bicarb (7) Acute kidney injury: Code(s): N17.9 - Acute kidney failure, unspecified Status: Resolved Assessment and Plan: Patient does have history of chronic kidney disease and presented with creatinine of 1.2 Creatinine increased to 1.6. Patient did receive IV contrast for CTA Patient also on NSAIDs at home CT abdomen pelvis done on admission did not show any hydronephrosis or renal stone pt was on iv fluids creat improved to 1.00 (8) Abdominal tenderness in left flank: Code(s): R10.819 - Abdominal tenderness, unspecified site Status: Acute Assessment and Plan: On exam patient exhibited mild tenderness in left lower quadrant although exam was unremarkable as patient was resisting exam. She had CT abdomen pelvis done on presentation which was negative 11/[address] abdomen pelvis showed Wall thickening of the descending and sigmoid colon, consistent with interstitial edema versus colitis. Patient had no diarrhea until this more. She has already on antibiotics that would provide adequate Gram-negative coverage. cdiff ordered flagyl ordered (9) Encephalopathy: Code(s): G93.40 - Encephalopathy, unspecified Status: Acute Assessment and Plan: Patient appears to have toxic metabolic encephalopathy with likely component of deliriu
[2022-11-18] MEDS: SACCHAROMYCES BOULARDII 250 MG CAPSULE PO (16:19)
[2022-11-18] MEDS: POTASSIUM CHLORIDE 20 MEQ PACKET (FOR LIQUID) 40 MEQ PO (16:32)
[2022-11-18 16:41] LABS: Glucose Point of Care 279 mg/dl (65-105)
[2022-11-18 20:50] LABS: Glucose Point of Care 314 mg/dl (65-105)
[2022-11-19] VITALS (28 sets, daily range): BP systolic 135–186; BP diastolic 53–72; PULSE 92–116; RESP 18–34; TEMP 36.6–37.1; O2SAT 92–97
[2022-11-19] MEDS: hydrALAZINE HCL 25 MG TABLET PO ×5 (00:22→20:19)
[2022-11-19 00:25] LABS: Glucose Point of Care 194 mg/dl (65-105)
[2022-11-19] MEDS: metroNIDAZOLE 500 MG/ISO 100ML 500 MG/100 ML BAG 100 MG IVPB ×3 (02:00→17:17)
[2022-11-19] MEDS: IPRATROPIUM BR 0.02% INH SOLN 0.5 MG/2.5 ML VIAL INHALATION ×4 (02:02→19:55)
[2022-11-19] MEDS: LEVALBUTEROL NEB 1.25 MG/3 ML 0.63 MG INHALATION ×4 (02:02→19:54)
[2022-11-19 05:02] LABS: Hematocrit 28.3 % (37.0-47.0); Hemoglobin 9.5 g/dL (12.0-15.0); Mean Corpuscular HGB Conc 33.6 g/dl (32-36); Mean Corpuscular Hemoglobin 29.1 pg (26-34); Mean Corpuscular Volume 86.5 fl (80-100); Mean Platelet Volume 11.6 fl (7.4-10.4); Platelet Count Result 277 k/mm3 (150-375); Red Blood Count 3.27 M/mm3 (4.2-5.4); Red Cell Distribution Width 17.3 % (11.5-14.5); White Blood Count 15.3 K/mm3 (4.5-10.0)
[2022-11-19] MEDS: CENTRAL LINE FLUSH 10 ML IV PUSH ×3 (05:08→20:20)
[2022-11-19 05:14] LABS: Alanine Aminotransferase 23 U/L (6-35); Albumin Level 2.2 g/dL (3.5-5.1); Alkaline Phosphatase 222 U/L (38-126); Ammonia < 9 umol/L (9-30); Anion Gap 3 mmol/L (8-16); Aspartate Amino Transferase 25 U/L (14-36); Bilirubin,Total 0.5 mg/dL (0.2-1.3); Blood Urea Nitrogen 32 mg/dL (7-17); Calcium 8.3 mg/dL (8.4-10.2); Carbon Dioxide 23 mmol/L (22-30); Chloride 114 mmol/L (98-107); Estimated CRCL calculation 72 ml/min; Estimated Glomerular Filt Rate > 60; Glucose 232 mg/dL (65-110); Magnesium 1.6 mg/dL (1.6-2.3); Potassium 3.8 mmol/L (3.4-5.0); Sodium 140 mmol/L (137-145)
[2022-11-19] MEDS: SUCRALFATE SUSP 100 MG/ML 10 ML UDC 1000 MG PO ×4 (06:38→20:19)
[2022-11-19] MEDS: LEVOTHYROXINE SODIUM INJ 100 MCG/5 ML VIAL 25 MCG IV PUSH (06:38)
[2022-11-19] MEDS: INSULIN ASPART (*BKC) 100 UNITS/ML SUB-Q ×3 (06:38→20:28)
[2022-11-19] MEDS: cefTRIAXone 2 GM in SODIUM CHLORIDE 0.9% IV 100 ML 200 ML IVPB (08:03)
[2022-11-19] MEDS: METOPROLOL TARTRATE INJ 5 MG/5 ML VIAL IV PUSH ×2 (08:04→15:30)
[2022-11-19] MEDS: amLODIPine BESYLATE 5 MG TABLET 10 MG PO (08:09)
[2022-11-19] MEDS: DULoxetine HCL 60 MG CAPSULE.DR PO ×2 (08:09→17:14)
[2022-11-19] MEDS: SERTRALINE HCL 50 MG TABLET PO (08:09)
[2022-11-19] MEDS: METOPROLOL TARTRATE 25 MG TABLET PO (08:10)
[2022-11-19] MEDS: SODIUM BICARBONATE TAB 650 MG TABLET PO (08:10)
[2022-11-19] MEDS: LOSARTAN POTASSIUM 25 MG TABLET PO ×2 (08:10→12:36)
[2022-11-19] MEDS: INSULIN GLARGINE (*BKC) 100 UNITS/ML 15 UNITS SUB-Q (08:11)
[2022-11-19] MEDS: ENOXAPARIN 40 MG/0.4 ML SYRINGE SUB-Q (08:12)
[2022-11-19] MEDS: POTASSIUM CHLORIDE 20 MEQ PACKET (FOR LIQUID) 40 MEQ PO ×2 (08:14→17:18)
[2022-11-19] MEDS: MINERAL OIL/WHITE PETROLATUM OINTMENT 1 APPLIC EACH EYE (08:14)
[2022-11-19 08:15] LABS: Glucose Point of Care 188 mg/dl (65-105)
[2022-11-19] MEDS: SACCHAROMYCES BOULARDII 250 MG CAPSULE PO ×2 (08:15→17:18)
[2022-11-19] MEDS: PANTOPRAZOLE 40 MG TABLET PO (08:17)
--- NOTE | 2022-11-19 10:56 | PCPTNOTE ---
attempted to see patient for physical therapy evaluation, pt refused stating she does not feel well enough to get OOB. Will continue to follow.
--- NOTE | 2022-11-19 11:09 | PCOTNOTE ---
Attempted OT evaluation, pt refused stating she does not feel well enough to get out of bed at this time. Will continue to follow.
[2022-11-19 11:50] LABS: Glucose Point of Care 187 mg/dl (65-105)
--- NOTE | 2022-11-19 12:04 | PM.IMPN ---
Progress Note: A&P Assessment and Plan (1) Sepsis: Qualifiers: Sepsis type: sepsis due to unspecified organism Sepsis acute organ dysfunction status: with acute organ dysfunction Severe sepsis acute organ dysfunction type: acute respiratory failure Acute respiratory failure type: with hypoxia Severe sepsis shock status: without septic shock Qualified Code(s): A41.9 - Sepsis, unspecified organism; R65.20 - Severe sepsis without septic shock; J96.01 - Acute respiratory failure with hypoxia Code(s): A41.9 - Sepsis, unspecified organism Status: Acute Assessment and Plan: Secondary to streptococcal community-acquired pneumonia Extensive, dense consolidation in the right lung, with scattered focal areas of consolidation left lung. Findings are compatible with extensive pneumonia. Underlying neoplastic lesion is difficult to completely exclude, though no distinct mass effect clearly identified on the opacified pulmonary arterial tree. Mild lymphadenopathy, presumably reactive Blood cultures done on 11/12 and 11/13 are negative till now Urine pneumococcal antigen is positive suggestive of streptococcal pneumonia WBC is improving pt is being treated with iv rocephin, flagyl pt weaning off oxygen improving slowly pulmonary consulted (2) Community acquired pneumonia: Code(s): J18.9 - Pneumonia, unspecified organism Status: Acute Assessment and Plan: See above (3) Acute hypokalemia: Code(s): E87.6 - Hypokalemia Status: Acute Assessment and Plan: replace and monitor (4) Type 2 diabetes mellitus with hyperglycemia, without long-term current use of insulin: Code(s): E11.65 - Type 2 diabetes mellitus with hyperglycemia Status: Chronic Assessment and Plan: Change sliding scale to every 4 hours Continue Lantus Advance diet also on semaglutide at home (5) Pneumonia: Qualifiers: Pneumonia type: aspiration pneumonia Aspiration pneumonia type: due to vomit Laterality: bilateral Lung location: unspecified part of lung Qualified Code(s): J69.0 - Pneumonitis due to inhalation of food and vomit Code(s): J18.9 - Pneumonia, unspecified organism Status: Acute Assessment and Plan: See above (6) Acidosis: Code(s): E87.20 - Acidosis, unspecified Status: Resolved Assessment and Plan: Patient had been gradually getting more acidotic secondary to kidney injury and hyperchloremia from normal saline She was started on IV fluids and IV bicarb Acidosis improved pt remains on p.o. bicarb, will hold further as acidosis has resovled now. (7) Acute kidney injury: Code(s): N17.9 - Acute kidney failure, unspecified Status: Resolved Assessment and Plan: Patient does have history of chronic kidney disease and presented with creatinine of 1.2 Creatinine increased to 1.6. Patient did receive IV contrast for CTA Patient also on NSAIDs at home CT abdomen pelvis done on admission did not show any hydronephrosis or renal stone pt was on iv fluids creat improved to 1.00 this has resolved (8) Abdominal tenderness in left flank: Code(s): R10.819 - Abdominal tenderness, unspecified site Status: Acute Assessment and Plan: On exam patient exhibited mild tenderness in left lower quadrant although exam was unremarkable as patient was resisting exam. She had CT abdomen pelvis done on presentation which was negative 11/[address] abdomen pelvis showed Wall thickening of the descending and sigmoid colon, consistent with interstitial edema versus colitis. Patient had no diarrhea until this more. She has already on antibiotics that would provide adequate Gram-negative coverage. cdiff negative (9) Encephalopathy: Code(s): G93.40 - Encephalopathy, unspecified Status: Acute Assessment and Plan: Patient appears to have toxic metabolic encephalopathy with likely componen
[2022-11-19] MEDS: hydrALAZINE HCL 20 MG/ML VIAL 10 MG IV PUSH (12:32)
[2022-11-19] MEDS: FUROSEMIDE INJ 40 MG/4 ML VIAL IV PUSH (13:06)
[2022-11-19 16:02] LABS: Glucose Point of Care 255 mg/dl (65-105)
[2022-11-19] MEDS: AZITHROMYCIN 250 MG TABLET 500 MG PO (17:13)
[2022-11-19] MEDS: METOPROLOL TARTRATE 50 MG TAB PO (20:20)
[2022-11-19 20:36] LABS: Glucose Point of Care 216 mg/dl (65-105)
[2022-11-20] VITALS (18 sets, daily range): BP systolic 130–160; BP diastolic 52–116; PULSE 86–110; RESP 18–30; TEMP 36.4; O2SAT 91–98
[2022-11-20] MEDS: LEVALBUTEROL NEB 1.25 MG/3 ML 0.63 MG INHALATION ×4 (02:40→21:00)
[2022-11-20] MEDS: IPRATROPIUM BR 0.02% INH SOLN 0.5 MG/2.5 ML VIAL INHALATION ×4 (02:40→21:00)
[2022-11-20] MEDS: metroNIDAZOLE 500 MG/ISO 100ML 500 MG/100 ML BAG 100 MG IVPB ×3 (02:55→18:09)
[2022-11-20] MEDS: hydrALAZINE HCL 20 MG/ML VIAL 10 MG IV PUSH (03:36)
[2022-11-20] MEDS: CENTRAL LINE FLUSH 10 ML IV PUSH ×3 (05:13→20:15)
[2022-11-20] MEDS: LEVOTHYROXINE SODIUM INJ 100 MCG/5 ML VIAL 25 MCG IV PUSH (05:30)
[2022-11-20] MEDS: SUCRALFATE SUSP 100 MG/ML 10 ML UDC 1000 MG PO ×2 (05:31→20:14)
[2022-11-20 05:37] LABS: Hematocrit 28.6 % (37.0-47.0); Hemoglobin 9.4 g/dL (12.0-15.0); Mean Corpuscular HGB Conc 32.9 g/dl (32-36); Mean Corpuscular Hemoglobin 28.9 pg (26-34); Mean Platelet Volume 11.5 fl (7.4-10.4); Platelet Count Result 323 k/mm3 (150-375); Red Blood Count 3.25 M/mm3 (4.2-5.4); Red Cell Distribution Width 17.1 % (11.5-14.5); White Blood Count 14.2 K/mm3 (4.5-10.0)
[2022-11-20 05:47] LABS: Alanine Aminotransferase 26 U/L (6-35); Albumin Level 2.3 g/dL (3.5-5.1); Alkaline Phosphatase 198 U/L (38-126); Anion Gap 0 mmol/L (8-16); Aspartate Amino Transferase 32 U/L (14-36); Bilirubin,Total 0.6 mg/dL (0.2-1.3); Blood Urea Nitrogen 25 mg/dL (7-17); Calcium 8.2 mg/dL (8.4-10.2); Carbon Dioxide 27 mmol/L (22-30); Chloride 109 mmol/L (98-107); Estimated CRCL calculation 73 ml/min; Estimated Glomerular Filt Rate > 60; Glucose 194 mg/dL (65-110); Magnesium 1.5 mg/dL (1.6-2.3); Potassium 3.3 mmol/L (3.4-5.0); Sodium 136 mmol/L (137-145)
[2022-11-20] MEDS: cefTRIAXone 2 GM in SODIUM CHLORIDE 0.9% IV 100 ML 200 ML IVPB (09:01)
[2022-11-20] MEDS: INSULIN GLARGINE (*BKC) 100 UNITS/ML 15 UNITS SUB-Q (09:01)
[2022-11-20] MEDS: ENOXAPARIN 40 MG/0.4 ML SYRINGE SUB-Q (09:02)
[2022-11-20] MEDS: amLODIPine BESYLATE 5 MG TABLET 10 MG PO (09:11)
[2022-11-20] MEDS: POTASSIUM CHLORIDE 20 MEQ PACKET (FOR LIQUID) 40 MEQ PO ×2 (09:11→18:09)
[2022-11-20] MEDS: METOPROLOL TARTRATE 50 MG TAB PO ×2 (09:12→20:15)
[2022-11-20] MEDS: hydrALAZINE HCL 25 MG TABLET PO ×4 (09:12→20:14)
[2022-11-20] MEDS: LOSARTAN POTASSIUM 50 MG TABLET PO (09:12)
[2022-11-20] MEDS: PANTOPRAZOLE 40 MG TABLET PO (09:15)
[2022-11-20] MEDS: DULoxetine HCL 60 MG CAPSULE.DR PO ×2 (09:15→18:08)
[2022-11-20] MEDS: SERTRALINE HCL 50 MG TABLET PO (09:16)
[2022-11-20] MEDS: AZITHROMYCIN 250 MG TABLET 500 MG PO (09:16)
[2022-11-20] MEDS: SACCHAROMYCES BOULARDII 250 MG CAPSULE PO ×2 (09:17→18:08)
[2022-11-20 09:21] LABS: Glucose Point of Care 181 mg/dl (65-105)
[2022-11-20] MEDS: POTASSIUM CHLORIDE 20 MEQ TABLET 40 MEQ PO (10:42)
[2022-11-20] MEDS: MAGNESIUM SULF 2 GM/WATER 50ML 2 GM/50 ML BAG IVPB (10:43)
--- NOTE | 2022-11-20 11:31 | PCNFU ---
Nutrition Follow-Up Complete: Inadequate energy intake related to diet order and appetite and intake as evidenced by clear liquid status and pt report Goal: Meet estimated needs PO intake 75% of meals Pt current nutrition is DBCC. Last recorded weight is 103.5 kg. Bowel Motility: FMS Labs Reviewed:Glu 194, BUN 25, Alb 2.3,Na 136 Meds Noted:Lovenox, NovoLog,Flagyl, Lopressor Skin: Deep Tissue- heel Additional Notes: Patient seen today for nutrition follow up. Sitting in chair with breakfast tray. She states to drinking the diet supplements of Glucerna shakes which are providing an additional 220 kcals and 10 gms protein. Oral Intake has been fair about 25% of meals. PO intake encouraged. Recommending Banatrol Plus BID for stool bulking due to FMS/diarrhea. Monitor for diet advancement, intake, tolerance, wt, labs. Follow up in 5 days.
[2022-11-20] MEDS: INSULIN ASPART (*BKC) 100 UNITS/ML SUB-Q (12:19)
[2022-11-20 12:45] LABS: Glucose Point of Care 232 mg/dl (65-105)
--- NOTE | 2022-11-20 17:33 | P.PNIM_ITS ---
Progress Note: A&P Assessment and Plan (1) Sepsis: Qualifiers: Sepsis type: sepsis due to unspecified organism Sepsis acute organ dysfunction status: with acute organ dysfunction Severe sepsis acute organ dysfunction type: acute respiratory failure Acute respiratory failure type: with hypoxia Severe sepsis shock status: without septic shock Qualified Code(s): A41.9 - Sepsis, unspecified organism; R65.20 - Severe sepsis without septic shock; J96.01 - Acute respiratory failure with hypoxia Code(s): A41.9 - Sepsis, unspecified organism Status: Acute Assessment and Plan: Secondary to streptococcal community-acquired pneumonia Extensive, dense consolidation in the right lung, with scattered focal areas of consolidation left lung. Findings are compatible with extensive pneumonia. Underlying neoplastic lesion is difficult to completely exclude, though no distinct mass effect clearly identified on the opacified pulmonary arterial tree. Mild lymphadenopathy, presumably reactive Blood cultures done on 11/12 and 11/13 are negative till now Urine pneumococcal antigen is positive suggestive of streptococcal pneumonia WBC is improving pt is being treated with iv rocephin, flagyl pt weaning off oxygen improving slowly pulmonary consulted Could continue Rocephin and azithromycin Chest x-ray reviewed today (2) Community acquired pneumonia: Code(s): J18.9 - Pneumonia, unspecified organism Status: Acute Assessment and Plan: See above (3) Acute hypokalemia: Code(s): E87.6 - Hypokalemia Status: Acute Assessment and Plan: replace and monitor (4) Type 2 diabetes mellitus with hyperglycemia, without long-term current use of insulin: Code(s): E11.65 - Type 2 diabetes mellitus with hyperglycemia Status: Chronic Assessment and Plan: Change sliding scale to every 4 hours Continue Lantus Advance diet also on semaglutide at home (5) Pneumonia: Qualifiers: Pneumonia type: aspiration pneumonia Aspiration pneumonia type: due to vomit Laterality: bilateral Lung location: unspecified part of lung Qualified Code(s): J69.0 - Pneumonitis due to inhalation of food and vomit Code(s): J18.9 - Pneumonia, unspecified organism Status: Acute Assessment and Plan: See above (6) Acidosis: Code(s): E87.20 - Acidosis, unspecified Status: Resolved Assessment and Plan: Patient had been gradually getting more acidotic secondary to kidney injury and hyperchloremia from normal saline She was started on IV fluids and IV bicarb Acidosis improved pt remains on p.o. bicarb, will hold further as acidosis has resovled now. (7) Acute kidney injury: Code(s): N17.9 - Acute kidney failure, unspecified Status: Resolved Assessment and Plan: Patient does have history of chronic kidney disease and presented with creatinine of 1.2 Creatinine increased to 1.6. Patient did receive IV contrast for CTA Patient also on NSAIDs at home CT abdomen pelvis done on admission did not show any hydronephrosis or renal stone pt was on iv fluids creat improved to 1.00 this has resolved (8) Abdominal tenderness in left flank: Code(s): R10.819 - Abdominal tenderness, unspecified site Status: Acute Assessment and Plan: On exam patient exhibited mild tenderness in left lower quadrant although exam was unremarkable as patient was resisting exam. She had CT abdomen pelvis done on presentation which was negative 11/[address] abdomen p
[2022-11-20 17:53] LABS: Glucose Point of Care 163 mg/dl (65-105)
[2022-11-20] MEDS: ACETAMINOPHEN 325 MG TABLET 650 MG PO (18:56)
[2022-11-20 21:17] LABS: Glucose Point of Care 185 mg/dl (65-105)
[2022-11-21] VITALS (16 sets, daily range): BP systolic 148–161; BP diastolic 56–66; PULSE 81–106; RESP 14–25; TEMP 36.3–36.9; O2SAT 91–98
[2022-11-21] MEDS: metroNIDAZOLE 500 MG/ISO 100ML 500 MG/100 ML BAG 100 MG IVPB (02:44)
[2022-11-21] MEDS: LEVALBUTEROL NEB 1.25 MG/3 ML 0.63 MG INHALATION ×4 (03:13→20:30)
[2022-11-21] MEDS: IPRATROPIUM BR 0.02% INH SOLN 0.5 MG/2.5 ML VIAL INHALATION ×4 (03:13→20:30)
[2022-11-21 05:13] LABS: Basophils Absolute Auto 0.1 K/mm3 (0.0-0.1); Basophils Percent Auto 0.5 % (0.2-1.2); Eosinophils Absolute Auto 0.2 K/mm3 (0-0.3); Eosinophils Percent Auto 1.6 % (0-4.4); Hematocrit 27.3 % (37.0-47.0); Hemoglobin 8.8 g/dL (12.0-15.0); Immature Granulocyte Absolute 0.08 K/mm3 (0.00-0.031); Immature Granulocyte Percent A 0.6 % (0-0.5); Lymphocytes Absolute Auto 1.07 K/mm3 (0.9-3.2); Lymphocytes Percent Auto 8.2 % (18.3-44.2); Mean Corpuscular HGB Conc 32.2 g/dl (32-36); Mean Corpuscular Volume 90.1 fl (80-100); Mean Platelet Volume 11.1 fl (7.4-10.4); Monocytes Absolute Auto 1.1 K/mm3 (0.1-0.6); Monocytes Percent Auto 8.7 % (2.6-8.5); Neutrophils Absolute Auto 10.5 K/mm3 (1.3-6.7); Neutrophils Percent Auto 80.4 % (45.5-73.1); Platelet Count Result 389 k/mm3 (150-375); Red Blood Count 3.03 M/mm3 (4.2-5.4); Red Cell Distribution Width 17.1 % (11.5-14.5); White Blood Count 13.1 K/mm3 (4.5-10.0)
[2022-11-21 05:22] LABS: Alanine Aminotransferase 28 U/L (6-35); Albumin Level 2.2 g/dL (3.5-5.1); Alkaline Phosphatase 173 U/L (38-126); Anion Gap 1 mmol/L (8-16); Aspartate Amino Transferase 35 U/L (14-36); Bilirubin,Total 0.5 mg/dL (0.2-1.3); Blood Urea Nitrogen 19 mg/dL (7-17); Calcium 8.1 mg/dL (8.4-10.2); Carbon Dioxide 26 mmol/L (22-30); Chloride 113 mmol/L (98-107); Estimated CRCL calculation 81 ml/min; Estimated Glomerular Filt Rate > 60; Glucose 173 mg/dL (65-110); Magnesium 1.7 mg/dL (1.6-2.3); Potassium 4.3 mmol/L (3.4-5.0); Sodium 140 mmol/L (137-145)
[2022-11-21] MEDS: LEVOTHYROXINE SODIUM INJ 100 MCG/5 ML VIAL 25 MCG IV PUSH (06:21)
[2022-11-21] MEDS: SUCRALFATE SUSP 100 MG/ML 10 ML UDC 1000 MG PO ×4 (06:21→20:26)
[2022-11-21] MEDS: CENTRAL LINE FLUSH 10 ML IV PUSH ×3 (06:22→20:31)
[2022-11-21] MEDS: cefTRIAXone 2 GM in SODIUM CHLORIDE 0.9% IV 100 ML 200 ML IVPB ×2 (08:27→20:30)
[2022-11-21] MEDS: ENOXAPARIN 40 MG/0.4 ML SYRINGE SUB-Q (08:28)
[2022-11-21] MEDS: AZITHROMYCIN 250 MG TABLET 500 MG PO (08:28)
[2022-11-21] MEDS: POTASSIUM CHLORIDE 20 MEQ PACKET (FOR LIQUID) 40 MEQ PO ×2 (08:28→18:24)
[2022-11-21] MEDS: amLODIPine BESYLATE 5 MG TABLET 10 MG PO (08:28)
[2022-11-21] MEDS: DULoxetine HCL 60 MG CAPSULE.DR PO ×2 (08:28→18:25)
[2022-11-21] MEDS: LOSARTAN POTASSIUM 50 MG TABLET PO (08:29)
[2022-11-21] MEDS: INSULIN GLARGINE (*BKC) 100 UNITS/ML 15 UNITS SUB-Q (08:29)
[2022-11-21] MEDS: hydrALAZINE HCL 25 MG TABLET PO ×4 (08:29→20:26)
[2022-11-21] MEDS: PANTOPRAZOLE 40 MG TABLET PO (08:30)
[2022-11-21] MEDS: SACCHAROMYCES BOULARDII 250 MG CAPSULE PO ×2 (08:31→18:25)
[2022-11-21] MEDS: SERTRALINE HCL 50 MG TABLET PO (08:31)
[2022-11-21] MEDS: METOPROLOL TARTRATE 50 MG TAB PO ×2 (08:35→20:26)
[2022-11-21 09:08] LABS: Glucose Point of Care 173 mg/dl (65-105)
[2022-11-21 11:40] LABS: Glucose Point of Care 180 mg/dl (65-105)
--- NOTE | 2022-11-21 14:40 | PCOTNOTE ---
Attempted to see patient, PT working with patient. Patient's nurse also made this RANDOLPH aware patient will be transferring rooms soon. Will continue plan of care for OT.
--- NOTE | 2022-11-21 15:55 | PC.NURSE ---
This patient, Camille Sesay, was transferred to [facility] on 11/21/22 at 1555. Personal belongings sent with patient. Report given to Halie ENGLE. Appropriate documentation sent with patient.
[2022-11-21 16:42] LABS: Glucose Point of Care 163 mg/dl (65-105)
[2022-11-21 17:55] LABS: Mycoplasma IgM Antibody Titer 491 U/mL (<770)
[2022-11-21] MEDS: ALTEPLASE 2 MG VIAL (CATHFLO) IV PUSH (20:21)
[2022-11-21] MEDS: WATER, STERILE FOR INJECTION 10 ML VIAL XX (20:42)
[2022-11-21 21:04] LABS: Glucose Point of Care 132 mg/dl (65-105)
[2022-11-22] VITALS (9 sets, daily range): BP systolic 133–168; BP diastolic 45–58; PULSE 85–109; RESP 14–20; TEMP 36.3–36.7; O2SAT 91–94
[2022-11-22] MEDS: LEVALBUTEROL NEB 1.25 MG/3 ML 0.63 MG INHALATION ×2 (02:15→09:04)
[2022-11-22] MEDS: IPRATROPIUM BR 0.02% INH SOLN 0.5 MG/2.5 ML VIAL INHALATION ×2 (02:15→09:04)
[2022-11-22] MEDS: LEVOTHYROXINE SODIUM INJ 100 MCG/5 ML VIAL 25 MCG IV PUSH (06:17)
[2022-11-22] MEDS: CENTRAL LINE FLUSH 10 ML IV PUSH ×3 (06:18→20:42)
[2022-11-22] MEDS: SUCRALFATE SUSP 100 MG/ML 10 ML UDC 1000 MG PO ×4 (06:18→20:41)
[2022-11-22 06:48] LABS: Alanine Aminotransferase 31 U/L (6-35); Albumin Level 2.3 g/dL (3.5-5.1); Alkaline Phosphatase 147 U/L (38-126); Anion Gap 2 mmol/L (8-16); Aspartate Amino Transferase 36 U/L (14-36); Bilirubin,Total 0.5 mg/dL (0.2-1.3); Blood Urea Nitrogen 14 mg/dL (7-17); Calcium 7.7 mg/dL (8.4-10.2); Carbon Dioxide 26 mmol/L (22-30); Chloride 106 mmol/L (98-107); Estimated CRCL calculation 80 ml/min; Estimated Glomerular Filt Rate > 60; Glucose 154 mg/dL (65-110); Magnesium 1.6 mg/dL (1.6-2.3); Potassium 3.9 mmol/L (3.4-5.0); Sodium 134 mmol/L (137-145)
[2022-11-22 06:51] LABS: Basophils Absolute Auto 0.1 K/mm3 (0.0-0.1); Basophils Percent Auto 0.6 % (0.2-1.2); Eosinophils Absolute Auto 0.3 K/mm3 (0-0.3); Hemoglobin 8.5 g/dL (12.0-15.0); Immature Granulocyte Absolute 0.09 K/mm3 (0.00-0.031); Immature Granulocyte Percent A 0.7 % (0-0.5); Lymphocytes Absolute Auto 1.32 K/mm3 (0.9-3.2); Lymphocytes Percent Auto 9.9 % (18.3-44.2); Mean Corpuscular HGB Conc 31.5 g/dl (32-36); Mean Corpuscular Hemoglobin 28.2 pg (26-34); Mean Corpuscular Volume 89.7 fl (80-100); Mean Platelet Volume 10.9 fl (7.4-10.4); Monocytes Absolute Auto 1.3 K/mm3 (0.1-0.6); Monocytes Percent Auto 9.4 % (2.6-8.5); Neutrophils Absolute Auto 10.3 K/mm3 (1.3-6.7); Neutrophils Percent Auto 77.4 % (45.5-73.1); Platelet Count Result 438 k/mm3 (150-375); Red Blood Count 3.01 M/mm3 (4.2-5.4); Red Cell Distribution Width 16.7 % (11.5-14.5); White Blood Count 13.4 K/mm3 (4.5-10.0)
[2022-11-22 08:20] LABS: Glucose Point of Care 132 mg/dl (65-105)
[2022-11-22] MEDS: AZITHROMYCIN 250 MG TABLET 500 MG PO (08:31)
[2022-11-22] MEDS: DULoxetine HCL 60 MG CAPSULE.DR PO ×2 (08:31→16:04)
[2022-11-22] MEDS: hydrALAZINE HCL 25 MG TABLET PO ×4 (08:31→20:40)
[2022-11-22] MEDS: POTASSIUM CHLORIDE 20 MEQ PACKET (FOR LIQUID) 40 MEQ PO ×2 (08:31→16:04)
[2022-11-22] MEDS: PANTOPRAZOLE 40 MG TABLET PO (08:31)
[2022-11-22] MEDS: SERTRALINE HCL 50 MG TABLET PO (08:32)
[2022-11-22] MEDS: LOSARTAN POTASSIUM 50 MG TABLET PO (08:32)
[2022-11-22] MEDS: amLODIPine BESYLATE 5 MG TABLET 10 MG PO (08:32)
[2022-11-22] MEDS: METOPROLOL TARTRATE 50 MG TAB PO ×2 (08:32→20:41)
[2022-11-22] MEDS: SACCHAROMYCES BOULARDII 250 MG CAPSULE PO ×2 (08:32→16:04)
[2022-11-22] MEDS: ENOXAPARIN 40 MG/0.4 ML SYRINGE SUB-Q (08:33)
[2022-11-22] MEDS: INSULIN GLARGINE (*BKC) 100 UNITS/ML 15 UNITS SUB-Q (08:34)
[2022-11-22] MEDS: cefTRIAXone 2 GM in SODIUM CHLORIDE 0.9% IV 100 ML 200 ML IVPB ×2 (08:34→20:40)
[2022-11-22 11:43] LABS: Glucose Point of Care 106 mg/dl (65-105)
--- NOTE | 2022-11-22 11:44 | PCPTNOTE ---
Patient refused treatment. Patient states she did not sleep well last night and wants to rest. Patient educated on the improtance of participating in therapy to improve strength and mobility. Patient continued to refuse.
--- NOTE | 2022-11-22 12:20 | PM.IMPN ---
Progress Note: A&P Assessment and Plan (1) Sepsis: Qualifiers: Sepsis type: sepsis due to unspecified organism Sepsis acute organ dysfunction status: with acute organ dysfunction Severe sepsis acute organ dysfunction type: acute respiratory failure Acute respiratory failure type: with hypoxia Severe sepsis shock status: without septic shock Qualified Code(s): A41.9 - Sepsis, unspecified organism; R65.20 - Severe sepsis without septic shock; J96.01 - Acute respiratory failure with hypoxia Code(s): A41.9 - Sepsis, unspecified organism Status: Acute Assessment and Plan: Secondary to streptococcal community-acquired pneumonia Extensive, dense consolidation in the right lung, with scattered focal areas of consolidation left lung. Findings are compatible with extensive pneumonia. Underlying neoplastic lesion is difficult to completely exclude, though no distinct mass effect clearly identified on the opacified pulmonary arterial tree. Mild lymphadenopathy, presumably reactive Blood cultures done on 11/12 and 11/13 are negative till now Urine pneumococcal antigen is positive suggestive of streptococcal pneumonia WBC is improving pt is being treated with iv rocephin, flagyl pt weaning off oxygen improving slowly pulmonary consulted Could continue Rocephin and azithromycin Chest x-ray reviewed There has been concern for streptococcal meningitis on initial presentation. Discussed with ID pharmacist and also Pulmonary. Will switch ceftriaxone to every 12 lower and add vancomycin for now MRI brain ordered with no acute abnormality noted May need LP however might not be diagnostic at this point due to IV antibiotic (2) Community acquired pneumonia: Code(s): J18.9 - Pneumonia, unspecified organism Status: Acute Assessment and Plan: See above (3) Acute hypokalemia: Code(s): E87.6 - Hypokalemia Status: Acute Assessment and Plan: replace and monitor (4) Type 2 diabetes mellitus with hyperglycemia, without long-term current use of insulin: Code(s): E11.65 - Type 2 diabetes mellitus with hyperglycemia Status: Chronic Assessment and Plan: Change sliding scale to every 4 hours Continue Lantus Advance diet also on semaglutide at home (5) Pneumonia: Qualifiers: Pneumonia type: aspiration pneumonia Aspiration pneumonia type: due to vomit Laterality: bilateral Lung location: unspecified part of lung Qualified Code(s): J69.0 - Pneumonitis due to inhalation of food and vomit Code(s): J18.9 - Pneumonia, unspecified organism Status: Acute Assessment and Plan: See above (6) Acidosis: Code(s): E87.20 - Acidosis, unspecified Status: Resolved Assessment and Plan: Patient had been gradually getting more acidotic secondary to kidney injury and hyperchloremia from normal saline She was started on IV fluids and IV bicarb Acidosis improved pt remains on p.o. bicarb, will hold further as acidosis has resovled now. (7) Acute kidney injury: Code(s): N17.9 - Acute kidney failure, unspecified Status: Resolved Assessment and Plan: Patient does have history of chronic kidney disease and presented with creatinine of 1.2 Creatinine increased to 1.6. Patient did receive IV contrast for CTA Patient also on NSAIDs at home CT abdomen pelvis done on admission did not show any hydronephrosis or renal stone pt was on iv fluids creat improved to 1.00 this has resolved (8) Abdominal tenderness in left flank: Code(s): R10.819 - Abdominal tenderness, unspecified site Status: Acute Assessment and Plan: On exam patient exhibited mild tenderness in left lower quadrant although exam was unremarkable as patient was resisting exam. She had CT abdomen pelvis done on presentation which was negative 11/[address] abdomen pelvis showed Wall thickening of the descending and sigmoid colon, con
[2022-11-22] MEDS: CLOPIDOGREL BISULFATE 75 MG TABLET PO (13:41)
[2022-11-22 16:54] LABS: Glucose Point of Care 117 mg/dl (65-105)
[2022-11-22 18:39] LABS: C. pneumoniae Ab (IgM) <1:10 (<1:10); C. psittaci Ab (IgM) <1:10 (<1:10); C. trachomatis Ab (IgM) <1:10 (<1:10)
[2022-11-22] MEDS: ROSUVASTATIN 5 MG TABLET PO (20:41)
[2022-11-22 21:00] LABS: Glucose Point of Care 114 mg/dl (65-105)
[2022-11-23] VITALS (10 sets, daily range): BP systolic 147–169; BP diastolic 48–60; PULSE 68–110; RESP 14–18; TEMP 36.4–36.6; O2SAT 91–97
[2022-11-23 04:07] LABS: Basophils Absolute Auto 0.1 K/mm3 (0.0-0.1); Basophils Percent Auto 0.8 % (0.2-1.2); Eosinophils Absolute Auto 0.3 K/mm3 (0-0.3); Eosinophils Percent Auto 2.2 % (0-4.4); Hematocrit 27.5 % (37.0-47.0); Hemoglobin 8.7 g/dL (12.0-15.0); Immature Granulocyte Absolute 0.07 K/mm3 (0.00-0.031); Immature Granulocyte Percent A 0.6 % (0-0.5); Lymphocytes Absolute Auto 1.21 K/mm3 (0.9-3.2); Lymphocytes Percent Auto 10.2 % (18.3-44.2); Mean Corpuscular HGB Conc 31.6 g/dl (32-36); Mean Corpuscular Hemoglobin 28.3 pg (26-34); Mean Corpuscular Volume 89.6 fl (80-100); Mean Platelet Volume 10.7 fl (7.4-10.4); Monocytes Absolute Auto 1.2 K/mm3 (0.1-0.6); Monocytes Percent Auto 9.9 % (2.6-8.5); Neutrophils Absolute Auto 9.1 K/mm3 (1.3-6.7); Neutrophils Percent Auto 76.3 % (45.5-73.1); Platelet Count Result 463 k/mm3 (150-375); Red Blood Count 3.07 M/mm3 (4.2-5.4); Red Cell Distribution Width 16.2 % (11.5-14.5); White Blood Count 11.9 K/mm3 (4.5-10.0)
[2022-11-23 04:19] LABS: Alanine Aminotransferase 33 U/L (6-35); Albumin Level 2.4 g/dL (3.5-5.1); Alkaline Phosphatase 151 U/L (38-126); Anion Gap 3 mmol/L (8-16); Aspartate Amino Transferase 51 U/L (14-36); Bilirubin,Total 0.4 mg/dL (0.2-1.3); Blood Urea Nitrogen 11 mg/dL (7-17); Calcium 7.9 mg/dL (8.4-10.2); Carbon Dioxide 25 mmol/L (22-30); Chloride 106 mmol/L (98-107); Estimated CRCL calculation 80 ml/min; Estimated Glomerular Filt Rate > 60; Glucose 123 mg/dL (65-110); Magnesium 1.5 mg/dL (1.6-2.3); Potassium 3.5 mmol/L (3.4-5.0); Sodium 134 mmol/L (137-145)
[2022-11-23] MEDS: CENTRAL LINE FLUSH 10 ML IV PUSH ×3 (06:07→21:52)
[2022-11-23] MEDS: LEVOTHYROXINE SODIUM INJ 100 MCG/5 ML VIAL 25 MCG IV PUSH (06:07)
[2022-11-23] MEDS: SUCRALFATE SUSP 100 MG/ML 10 ML UDC 1000 MG PO ×4 (06:08→21:50)
[2022-11-23] MEDS: IPRATROPIUM BR 0.02% INH SOLN 0.5 MG/2.5 ML VIAL INHALATION ×2 (07:51→20:07)
[2022-11-23] MEDS: LEVALBUTEROL NEB 1.25 MG/3 ML 0.63 MG INHALATION ×2 (07:51→20:08)
[2022-11-23 08:19] LABS: Glucose Point of Care 122 mg/dl (65-105)
[2022-11-23] MEDS: cefTRIAXone 2 GM in SODIUM CHLORIDE 0.9% IV 100 ML 200 ML IVPB ×2 (09:22→21:50)
[2022-11-23] MEDS: POTASSIUM CHLORIDE 20 MEQ PACKET (FOR LIQUID) 40 MEQ PO ×2 (09:23→17:24)
[2022-11-23] MEDS: amLODIPine BESYLATE 5 MG TABLET 10 MG PO (09:24)
[2022-11-23] MEDS: MAGNESIUM SULF 2 GM/WATER 50ML 2 GM/50 ML BAG IVPB (09:24)
[2022-11-23] MEDS: ENOXAPARIN 40 MG/0.4 ML SYRINGE SUB-Q (09:24)
[2022-11-23] MEDS: CLOPIDOGREL BISULFATE 75 MG TABLET PO (09:25)
[2022-11-23] MEDS: METOPROLOL TARTRATE 50 MG TAB PO ×2 (09:25→21:51)
[2022-11-23] MEDS: AZITHROMYCIN 250 MG TABLET 500 MG PO (09:25)
[2022-11-23] MEDS: hydrALAZINE HCL 25 MG TABLET PO ×4 (09:29→21:50)
[2022-11-23] MEDS: LOSARTAN POTASSIUM 50 MG TABLET PO (09:29)
[2022-11-23] MEDS: SERTRALINE HCL 50 MG TABLET PO (09:29)
[2022-11-23] MEDS: SACCHAROMYCES BOULARDII 250 MG CAPSULE PO ×2 (09:29→17:24)
[2022-11-23] MEDS: PANTOPRAZOLE 40 MG TABLET PO (09:30)
[2022-11-23] MEDS: INSULIN GLARGINE (*BKC) 100 UNITS/ML 15 UNITS SUB-Q (09:30)
[2022-11-23] MEDS: DULoxetine HCL 60 MG CAPSULE.DR PO ×2 (09:30→17:24)
[2022-11-23 11:53] LABS: Glucose Point of Care 111 mg/dl (65-105)
--- NOTE | 2022-11-23 14:50 | P.PNIM_ITS ---
Progress Note: A&P Assessment and Plan (1) Sepsis: Qualifiers: Sepsis type: sepsis due to unspecified organism Sepsis acute organ dysfunction status: with acute organ dysfunction Severe sepsis acute organ dysfunction type: acute respiratory failure Acute respiratory failure type: with hypoxia Severe sepsis shock status: without septic shock Qualified Code(s): A41.9 - Sepsis, unspecified organism; R65.20 - Severe sepsis without septic shock; J96.01 - Acute respiratory failure with hypoxia Code(s): A41.9 - Sepsis, unspecified organism Status: Acute Assessment and Plan: Secondary to streptococcal community-acquired pneumonia Extensive, dense consolidation in the right lung, with scattered focal areas of consolidation left lung. Findings are compatible with extensive pneumonia. Underlying neoplastic lesion is difficult to completely exclude, though no distinct mass effect clearly identified on the opacified pulmonary arterial tree. Mild lymphadenopathy, presumably reactive Blood cultures done on 11/12 and 11/13 are negative till now Urine pneumococcal antigen is positive suggestive of streptococcal pneumonia WBC is improving pt is being treated with iv rocephin, flagyl pt weaning off oxygen improving slowly pulmonary consulted Could continue Rocephin and azithromycin Chest x-ray reviewed There has been concern for streptococcal meningitis on initial presentation. Discussed with ID pharmacist and also Pulmonary. Will switch ceftriaxone to every 12 lower and add vancomycin for now MRI brain ordered with no acute abnormality noted May need LP however might not be diagnostic at this point due to IV antibiotic (2) Community acquired pneumonia: Code(s): J18.9 - Pneumonia, unspecified organism Status: Acute Assessment and Plan: See above (3) Acute hypokalemia: Code(s): E87.6 - Hypokalemia Status: Acute Assessment and Plan: replace and monitor (4) Type 2 diabetes mellitus with hyperglycemia, without long-term current use of insulin: Code(s): E11.65 - Type 2 diabetes mellitus with hyperglycemia Status: Chronic Assessment and Plan: Change sliding scale to every 4 hours Continue Lantus Advance diet also on semaglutide at home (5) Pneumonia: Qualifiers: Pneumonia type: aspiration pneumonia Aspiration pneumonia type: due to vomit Laterality: bilateral Lung location: unspecified part of lung Qualified Code(s): J69.0 - Pneumonitis due to inhalation of food and vomit Code(s): J18.9 - Pneumonia, unspecified organism Status: Acute Assessment and Plan: See above (6) Acidosis: Code(s): E87.20 - Acidosis, unspecified Status: Resolved Assessment and Plan: Patient had been gradually getting more acidotic secondary to kidney injury and hyperchloremia from normal saline She was started on IV fluids and IV bicarb Acidosis improved pt remains on p.o. bicarb, will hold further as acidosis has resovled now. (7) Acute kidney injury: Code(s): N17.9 - Acute kidney failure, unspecified Status: Resolved Assessment and Plan: Patient does have history of chronic kidney disease and presented with creatinine of 1.2 Creatinine increased to 1.6. Patient did receive IV contrast for CTA Patient also on NSAIDs at home CT abdomen pelvis done on admission did not show any hydronephrosis or renal stone pt was on iv fluids creat improved to 1.00 this has resolved (8) Abdominal tenderness in left flank: Code(s):
[2022-11-23 17:01] LABS: Glucose Point of Care 119 mg/dl (65-105)
[2022-11-23] MEDS: ROSUVASTATIN 5 MG TABLET PO (21:52)
[2022-11-23 22:02] LABS: Glucose Point of Care 106 mg/dl (65-105)
[2022-11-24] VITALS (16 sets, daily range): BP systolic 142–157; BP diastolic 55–59; PULSE 68–105; RESP 14–18; TEMP 36.4–37.2; O2SAT 92–98
[2022-11-24] MEDS: LEVALBUTEROL NEB 1.25 MG/3 ML 0.63 MG INHALATION ×4 (01:54→21:09)
[2022-11-24] MEDS: IPRATROPIUM BR 0.02% INH SOLN 0.5 MG/2.5 ML VIAL INHALATION ×4 (01:54→21:09)
[2022-11-24 05:47] LABS: Alanine Aminotransferase 35 U/L (6-35); Albumin Level 2.4 g/dL (3.5-5.1); Alkaline Phosphatase 149 U/L (38-126); Anion Gap 2 mmol/L (8-16); Aspartate Amino Transferase 49 U/L (14-36); Bilirubin,Total 0.3 mg/dL (0.2-1.3); Blood Urea Nitrogen 9 mg/dL (7-17); Calcium 7.8 mg/dL (8.4-10.2); Carbon Dioxide 27 mmol/L (22-30); Chloride 105 mmol/L (98-107); Estimated CRCL calculation 80 ml/min; Estimated Glomerular Filt Rate > 60; Glucose 149 mg/dL (65-110); Magnesium 1.7 mg/dL (1.6-2.3); Potassium 3.7 mmol/L (3.4-5.0); Sodium 134 mmol/L (137-145)
[2022-11-24 05:50] LABS: Basophils Absolute Auto 0.1 K/mm3 (0.0-0.1); Basophils Percent Auto 0.8 % (0.2-1.2); Eosinophils Absolute Auto 0.2 K/mm3 (0-0.3); Eosinophils Percent Auto 1.7 % (0-4.4); Hematocrit 27.1 % (37.0-47.0); Hemoglobin 8.4 g/dL (12.0-15.0); Immature Granulocyte Absolute 0.08 K/mm3 (0.00-0.031); Immature Granulocyte Percent A 0.7 % (0-0.5); Lymphocytes Absolute Auto 0.99 K/mm3 (0.9-3.2); Lymphocytes Percent Auto 8.5 % (18.3-44.2); Mean Corpuscular Hemoglobin 28.8 pg (26-34); Mean Corpuscular Volume 92.8 fl (80-100); Mean Platelet Volume 10.6 fl (7.4-10.4); Monocytes Absolute Auto 1.2 K/mm3 (0.1-0.6); Monocytes Percent Auto 9.9 % (2.6-8.5); Neutrophils Absolute Auto 9.2 K/mm3 (1.3-6.7); Neutrophils Percent Auto 78.4 % (45.5-73.1); Platelet Count Result 499 k/mm3 (150-375); Red Blood Count 2.92 M/mm3 (4.2-5.4); White Blood Count 11.7 K/mm3 (4.5-10.0)
[2022-11-24] MEDS: CENTRAL LINE FLUSH 10 ML IV PUSH ×3 (05:53→21:21)
[2022-11-24] MEDS: LEVOTHYROXINE SODIUM INJ 100 MCG/5 ML VIAL 25 MCG IV PUSH (05:53)
[2022-11-24] MEDS: SUCRALFATE SUSP 100 MG/ML 10 ML UDC 1000 MG PO ×4 (05:54→21:11)
[2022-11-24 07:59] LABS: Glucose Point of Care 167 mg/dl (65-105)
[2022-11-24] MEDS: INSULIN GLARGINE (*BKC) 100 UNITS/ML 15 UNITS SUB-Q (09:25)
[2022-11-24] MEDS: amLODIPine BESYLATE 5 MG TABLET 10 MG PO (09:28)
[2022-11-24] MEDS: METOPROLOL TARTRATE 50 MG TAB PO ×2 (09:28→21:11)
[2022-11-24] MEDS: LOSARTAN POTASSIUM 50 MG TABLET PO (09:28)
[2022-11-24] MEDS: POTASSIUM CHLORIDE 20 MEQ PACKET (FOR LIQUID) 40 MEQ PO ×2 (09:28→17:10)
[2022-11-24] MEDS: PANTOPRAZOLE 40 MG TABLET PO (09:28)
[2022-11-24] MEDS: SACCHAROMYCES BOULARDII 250 MG CAPSULE PO ×2 (09:29→17:10)
[2022-11-24] MEDS: CLOPIDOGREL BISULFATE 75 MG TABLET PO (09:29)
[2022-11-24] MEDS: ENOXAPARIN 40 MG/0.4 ML SYRINGE SUB-Q (09:29)
[2022-11-24] MEDS: hydrALAZINE HCL 25 MG TABLET PO ×4 (09:29→21:12)
[2022-11-24] MEDS: SERTRALINE HCL 50 MG TABLET PO (09:29)
[2022-11-24] MEDS: DULoxetine HCL 60 MG CAPSULE.DR PO ×2 (09:29→17:10)
[2022-11-24] MEDS: cefTRIAXone 2 GM in SODIUM CHLORIDE 0.9% IV 100 ML 200 ML IVPB ×2 (09:31→21:12)
--- NOTE | 2022-11-24 10:48 | PCOTNOTE ---
Attempted to see patient this am, however patient refused. Pt reported already completed ADLs this am and declined activity out of bed stating, I wanna lay right here and watch this movie.
[2022-11-24 11:43] LABS: Glucose Point of Care 169 mg/dl (65-105)
--- NOTE | 2022-11-24 12:28 | PCPTNOTE ---
Patient refused treatment this morning. PT attempted to see patient 2x this morning. Patient refused both attempts for PT treatment.
--- NOTE | 2022-11-24 16:30 | PM.IMPN ---
Progress Note: A&P Assessment and Plan (1) Sepsis: Qualifiers: Sepsis type: sepsis due to unspecified organism Sepsis acute organ dysfunction status: with acute organ dysfunction Severe sepsis acute organ dysfunction type: acute respiratory failure Acute respiratory failure type: with hypoxia Severe sepsis shock status: without septic shock Qualified Code(s): A41.9 - Sepsis, unspecified organism; R65.20 - Severe sepsis without septic shock; J96.01 - Acute respiratory failure with hypoxia Code(s): A41.9 - Sepsis, unspecified organism Status: Acute Assessment and Plan: Secondary to streptococcal community-acquired pneumonia Extensive, dense consolidation in the right lung, with scattered focal areas of consolidation left lung. Findings are compatible with extensive pneumonia. Underlying neoplastic lesion is difficult to completely exclude, though no distinct mass effect clearly identified on the opacified pulmonary arterial tree. Mild lymphadenopathy, presumably reactive Blood cultures done on 11/12 and 11/13 are negative till now Urine pneumococcal antigen is positive suggestive of streptococcal pneumonia WBC is improving pt is being treated with iv rocephin, flagyl pt weaning off oxygen improving slowly pulmonary consulted Could continue Rocephin and azithromycin Chest x-ray reviewed There has been concern for streptococcal meningitis on initial presentation. Discussed with ID pharmacist and also Pulmonary. Will switch ceftriaxone to every 12 lower and add vancomycin for now MRI brain ordered with no acute abnormality noted May need LP however might not be diagnostic at this point due to IV antibiotic Will plan for antibiotics for 4 more days ceftriaxone. Since she had significant improved with ceftriaxone alone will stop vancomycin at this point (2) Community acquired pneumonia: Code(s): J18.9 - Pneumonia, unspecified organism Status: Acute Assessment and Plan: See above (3) Acute hypokalemia: Code(s): E87.6 - Hypokalemia Status: Acute Assessment and Plan: replace and monitor (4) Type 2 diabetes mellitus with hyperglycemia, without long-term current use of insulin: Code(s): E11.65 - Type 2 diabetes mellitus with hyperglycemia Status: Chronic Assessment and Plan: Change sliding scale to every 4 hours Continue Lantus Advance diet also on semaglutide at home (5) Pneumonia: Qualifiers: Pneumonia type: aspiration pneumonia Aspiration pneumonia type: due to vomit Laterality: bilateral Lung location: unspecified part of lung Qualified Code(s): J69.0 - Pneumonitis due to inhalation of food and vomit Code(s): J18.9 - Pneumonia, unspecified organism Status: Acute Assessment and Plan: See above (6) Acidosis: Code(s): E87.20 - Acidosis, unspecified Status: Resolved Assessment and Plan: Patient had been gradually getting more acidotic secondary to kidney injury and hyperchloremia from normal saline She was started on IV fluids and IV bicarb Acidosis improved pt remains on p.o. bicarb, will hold further as acidosis has resovled now. (7) Acute kidney injury: Code(s): N17.9 - Acute kidney failure, unspecified Status: Resolved Assessment and Plan: Patient does have history of chronic kidney disease and presented with creatinine of 1.2 Creatinine increased to 1.6. Patient did receive IV contrast for CTA Patient also on NSAIDs at home CT abdomen pelvis done on admission did not show any hydronephrosis or renal stone pt was on iv fluids creat improved to 1.00 this has resolved (8) Abdominal tenderness in left flank: Code(s): R10.819 - Abdominal tenderness, unspecified site Status: Acute Assessment and Plan: On exam patient exhibited mild tenderness in left lower quadrant although exam was unremarkable as patient was resisting exam. She had CT
[2022-11-24 16:40] LABS: Glucose Point of Care 168 mg/dl (65-105)
[2022-11-24 20:06] LABS: Glucose Point of Care 163 mg/dl (65-105)
[2022-11-24] MEDS: ROSUVASTATIN 5 MG TABLET PO (21:11)
[2022-11-25] VITALS (11 sets, daily range): BP systolic 154; BP diastolic 49–58; PULSE 96–109; RESP 16–20; TEMP 36.6–37.1; O2SAT 92–94
[2022-11-25] MEDS: LEVALBUTEROL NEB 1.25 MG/3 ML 0.63 MG INHALATION ×4 (02:15→19:58)
[2022-11-25] MEDS: IPRATROPIUM BR 0.02% INH SOLN 0.5 MG/2.5 ML VIAL INHALATION ×4 (02:15→19:58)
[2022-11-25] MEDS: CENTRAL LINE FLUSH 10 ML IV PUSH ×2 (05:50→12:31)
[2022-11-25] MEDS: LEVOTHYROXINE SODIUM INJ 100 MCG/5 ML VIAL 25 MCG IV PUSH (05:50)
[2022-11-25] MEDS: SUCRALFATE SUSP 100 MG/ML 10 ML UDC 1000 MG PO ×3 (05:51→16:29)
[2022-11-25 06:04] LABS: Basophils Absolute Auto 0.1 K/mm3 (0.0-0.1); Basophils Percent Auto 0.8 % (0.2-1.2); Eosinophils Absolute Auto 0.3 K/mm3 (0-0.3); Eosinophils Percent Auto 2.5 % (0-4.4); Hematocrit 26.9 % (37.0-47.0); Hemoglobin 8.4 g/dL (12.0-15.0); Immature Granulocyte Absolute 0.05 K/mm3 (0.00-0.031); Immature Granulocyte Percent A 0.5 % (0-0.5); Lymphocytes Percent Auto 10.4 % (18.3-44.2); Mean Corpuscular HGB Conc 31.2 g/dl (32-36); Mean Corpuscular Volume 92.8 fl (80-100); Mean Platelet Volume 10.3 fl (7.4-10.4); Monocytes Absolute Auto 1.3 K/mm3 (0.1-0.6); Monocytes Percent Auto 11.8 % (2.6-8.5); Neutrophils Absolute Auto 7.9 K/mm3 (1.3-6.7); Platelet Count Result 527 k/mm3 (150-375); Red Cell Distribution Width 15.8 % (11.5-14.5); White Blood Count 10.6 K/mm3 (4.5-10.0)
[2022-11-25 06:14] LABS: Alanine Aminotransferase 39 U/L (6-35); Albumin Level 2.6 g/dL (3.5-5.1); Alkaline Phosphatase 140 U/L (38-126); Anion Gap 1 mmol/L (8-16); Aspartate Amino Transferase 52 U/L (14-36); Bilirubin,Total 0.4 mg/dL (0.2-1.3); Blood Urea Nitrogen 9 mg/dL (7-17); Carbon Dioxide 29 mmol/L (22-30); Chloride 105 mmol/L (98-107); Estimated CRCL calculation 91 ml/min; Estimated Glomerular Filt Rate > 60; Glucose 111 mg/dL (65-110); Magnesium 1.6 mg/dL (1.6-2.3); Potassium 3.7 mmol/L (3.4-5.0); Sodium 135 mmol/L (137-145)
[2022-11-25] MEDS: METOPROLOL TARTRATE 50 MG TAB PO (08:20)
[2022-11-25] MEDS: SACCHAROMYCES BOULARDII 250 MG CAPSULE PO ×2 (08:21→16:29)
[2022-11-25] MEDS: DULoxetine HCL 60 MG CAPSULE.DR PO ×2 (08:22→16:29)
[2022-11-25] MEDS: CLOPIDOGREL BISULFATE 75 MG TABLET PO (08:22)
[2022-11-25] MEDS: SERTRALINE HCL 50 MG TABLET PO (08:22)
[2022-11-25] MEDS: PANTOPRAZOLE 40 MG TABLET PO (08:22)
[2022-11-25] MEDS: LOSARTAN POTASSIUM 50 MG TABLET PO (08:22)
[2022-11-25] MEDS: hydrALAZINE HCL 25 MG TABLET PO ×3 (08:22→16:29)
[2022-11-25] MEDS: amLODIPine BESYLATE 5 MG TABLET 10 MG PO (08:23)
[2022-11-25] MEDS: ENOXAPARIN 40 MG/0.4 ML SYRINGE SUB-Q (08:23)
[2022-11-25] MEDS: cefTRIAXone 2 GM in SODIUM CHLORIDE 0.9% IV 100 ML 200 ML IVPB (08:24)
[2022-11-25] MEDS: POTASSIUM CHLORIDE 20 MEQ PACKET (FOR LIQUID) 40 MEQ PO ×2 (08:24→16:29)
[2022-11-25 08:25] LABS: Glucose Point of Care 129 mg/dl (65-105)
[2022-11-25] MEDS: INSULIN GLARGINE (*BKC) 100 UNITS/ML 15 UNITS SUB-Q (08:25)
[2022-11-25 11:51] LABS: Glucose Point of Care 205 mg/dl (65-105)
[2022-11-25] MEDS: INSULIN ASPART (*BKC) 100 UNITS/ML SUB-Q (12:32)
--- NOTE | 2022-11-25 13:54 | PCNFU ---
Nutrition Follow-Up Complete: Inadequate energy intake related to diet order and appetite and intake as evidenced by pt report Goal:Meet estimated needs PO intake 75% of meals. Pt is progressing towards goal Pt current nutrition is diabetic consistent carb, Glucerna shakes BID. Nutrition recommendation: Continue with current plan of care. Last recorded weight is 93.2 kg. Bowel Motility: +BM 11/24 Labs Reviewed: Hgb:8.4, HCT:26.9, Alb:2.6, NA:135, Glu:129 Meds Noted: lovenox, novolog Skin: DTPI to L heel Additional Notes: pt continues on a diabetic diet, intake 50% and pt reports good appetite. She is drinking Glucerna shakes. Continue to encourage good intake. Monitor intake, tolerance, wt, labs. Follow up in 5 days.
--- NOTE | 2022-11-25 13:55 | PM.DS ---
DS: Admitting Diagnosis Discharge Date 11/25/2022 Admitting Diagnosis Shortness of breath DS: Discharge Diagnosis Discharge Diagnosis (1) Sepsis: Qualifiers: Acute respiratory failure type: with hypoxia Sepsis acute organ dysfunction status: with acute organ dysfunction Sepsis type: sepsis due to unspecified organism Severe sepsis acute organ dysfunction type: acute respiratory failure Severe sepsis shock status: without septic shock Qualified Code(s): A41.9 - Sepsis, unspecified organism; R65.20 - Severe sepsis without septic shock; J96.01 - Acute respiratory failure with hypoxia Code(s): A41.9 - Sepsis, unspecified organism Status: Acute (2) Community acquired pneumonia: Code(s): J18.9 - Pneumonia, unspecified organism Status: Acute (3) Acute hypokalemia: Code(s): E87.6 - Hypokalemia Status: Acute (4) Type 2 diabetes mellitus with hyperglycemia, without long-term current use of insulin: Code(s): E11.65 - Type 2 diabetes mellitus with hyperglycemia Status: Chronic (5) Pneumonia: Qualifiers: Aspiration pneumonia type: due to vomit Laterality: bilateral Lung location: unspecified part of lung Pneumonia type: aspiration pneumonia Qualified Code(s): J69.0 - Pneumonitis due to inhalation of food and vomit Code(s): J18.9 - Pneumonia, unspecified organism Status: Acute (6) Acidosis: Code(s): E87.20 - Acidosis, unspecified Status: Resolved (7) Acute kidney injury: Code(s): N17.9 - Acute kidney failure, unspecified Status: Resolved (8) Abdominal tenderness in left flank: Code(s): R10.819 - Abdominal tenderness, unspecified site Status: Acute (9) Encephalopathy: Code(s): G93.40 - Encephalopathy, unspecified Status: Acute (10) Elevated liver enzymes: Code(s): R74.8 - Abnormal levels of other serum enzymes Status: Acute (11) Atrial fibrillation with RVR: Code(s): I48.91 - Unspecified atrial fibrillation Status: Acute (12) 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 Findings are compatible with extensive pneumonia. Underlying neoplastic lesion is difficult to completely exclude, though no distinct mass effect clearly identified on the opacified pulmonary arterial tree. Mild lymphadenopathy, presumably reactive Blood cultures done?on 11/12 and 11/13 are negative till now Urine pneumococcal antigen is positive suggestive of streptococcal pneumonia WBC slowly improving Patient treated with IV Rocephin and azithromycin. Completed azithromycin course during the hospital stay. Five Patient's oxygen requirement improved with no oxygen required by the time of discharge pulmonary consulted There has been concern for streptococcal meningitis on initial presentation.? Patient was treated with ceftriaxone q.12 hours for this region. With clinical improvement addition of vancomycin though was done for few days during the hospital stay does not felt to be needed. MRI brain ordered with no acute abnormality noted Plan for completion of 14 days course of antibiotics with ceftriaxone to cover for streptococcal pneumonia as well as possible meningitis. PICC line in place for IV antibiotics planned. # community-acquired pneumonia: Suspected to be related to streptococcal pneumonia with her urine antigen positive See above # hypokalemia: replace and monitor # type 2 diabetes mellitus with hyperglycemia: Change sliding scale to every 4 hours Continue Angelika maurer
--- NOTE | 2022-11-25 14:06 | PCOTNOTE ---
Attempted to see pt for Occupational Therapy. Pt declined to get out of bed at this time, stating that she will be leaving later today. Will continue per POC duration/frequency.
[2022-11-25 15:12] LABS: EDCOVIDSCREEN Negative (Negative)
[2022-11-25 16:36] LABS: Glucose Point of Care 120 mg/dl (65-105)
== END 2022-11-25 20:39 | DRG 871 ==
LOC: ANHED 21:31 → ANH3MED 22:40 → ANHIMU 11-13 01:00 → ANHICU 11-15 13:24 → ANH3MEDSUR 11-21 16:01
PROVIDERS: Emergency Medicine; Family Medicine; Internal Medicine; Internal Medicine Pulmonary Disease; Admitting Provider Internal Medicine; Emergency Provider Emergency Medicine; PCP Family Medicine; Visit Provider Internal Medicine
DX: A41.9 Sepsis, unspecified organism (principal); G92.8 Other toxic encephalopathy; J18.9 Pneumonia, unspecified organism; J96.01 Acute respiratory failure with hypoxia; E87.20 Acidosis, unspecified; N17.9 Acute kidney failure, unspecified; R65.20 Severe sepsis without septic shock; E87.6 Hypokalemia; E11.65 Type 2 diabetes mellitus with hyperglycemia; Z20.822 Contact with and (suspected) exposure to COVID-19; Z86.16 Personal history of COVID-19; E78.5 Hyperlipidemia, unspecified; E11.22 Type 2 diabetes mellitus with diabetic chronic kidney disease; N18.31 Chronic kidney disease, stage 3a; F32.A Depression, unspecified; M79.7 Fibromyalgia; M19.90 Unspecified osteoarthritis, unspecified site; M85.80 Other specified disorders of bone density and structure, unspecified site; I73.9 Peripheral vascular disease, unspecified; M06.9 Rheumatoid arthritis, unspecified; I48.91 Unspecified atrial fibrillation; E11.42 Type 2 diabetes mellitus with diabetic polyneuropathy; E55.9 Vitamin D deficiency, unspecified; R33.9 Retention of urine, unspecified; E87.8 Other disorders of electrolyte and fluid balance, not elsewhere classified; K20.90 Esophagitis, unspecified without bleeding; Z87.891 Personal history of nicotine dependence; Z90.710 Acquired absence of both cervix and uterus; Z90.722 Acquired absence of ovaries, bilateral; D72.829 Elevated white blood cell count, unspecified
CPT/HCPCS: 36415; 36569; 36600; 70450; 70551; 71045; 71275; 74176; 74177; 76705; 80048; 80053; 80061; 80076; 80202; 80307; 81001; 82140; 82274; 82550; 82570; 82805; 82948; 83036; 83605; 83690; 83735; 84100; 84300; 84439; 84443; 84480; 84484; 85025; 85027; 85610; 85730; 86140; 86632; 86738; 87040; 87081; 87426; 87449; 87493; 87502; 87899; 93005; 93306; 93923; 93970; 94640; 96361; 96365; 96375; 97110; 97161; 97165; 97530; 99285; A9270; C1751; C9113; C9803; J0131; J0360; J0456; J0692; J0696; J1650; J1815; J1940; J1956; J2060; J2270; J2405; J2997; J3370; J3475; J3480; J7030; J7040; J7060; Q9967; U0003; U0005